=== PATIENT | male | born 1955 | race Caucasian/White ===

== ENCOUNTER 2016-04-22 13:01 | Observation (INO) | payer OTHER ==
[~2016-04-22] VITALS: Ht 172.7 cm; Wt 78.8 kg
--- NOTE | 2016-04-22 15:47 | DIAGNOSTIC IMAGING REPORT ---
PROCEDURE: US ABDOMEN ULTRASOUND-LIMITED INDICATION: RUQ PAIN TECHNIQUE: De Jesus scale and color Doppler sonographic images of the abdomen were obtained without comparison. COMPARISON: Abdominal ultrasound 11/20/2015 FINDINGS: There is a 1.3 mm gallstone at the neck of the gallbladder with probable smaller 7 mm gallstone. No evidence of gallbladder wall thickening (1.8 -2.8 mm). Common duct is normal (4.7 mm). Pancreas is obscured by bowel gas. Portions of the liver and right kidney are seen, and are normal. IMPRESSION: 1. Cholelithiasis (1.3 mm gallstone at the neck of the gallbladder with probable smaller 7 mm gallstone). 2. Otherwise negative ultrasound of the right upper quadrant.
--- NOTE | 2016-04-22 16:18 | ED CLINICAL REPORT ---
Clinical Report - Physicians/Mid Levels [facility] [address] [place] [address] 04/22/2016 13:02 Patient: REYNA RODAS Time Seen: 13:11 Apr 22 2016. Arrived- By ambulance. Historian- patient and EMS personnel. HISTORY OF PRESENT ILLNESS Chief Complaint: ABDOMINAL PAIN. At its maximum, severity described as severe. When seen in the E.D., severity described as severe. It is described as "pain". This started just prior to arrival and is still present. (abdominal pain since last night, with associated nausea and vomiting, with no diarrhea. Pain is constant. Denies any recent illness. No fevers or chills.). Recent medical care: Not recently seen/assessed. REVIEW OF SYSTEMS No constipation, black stools, difficulty with urination, pain with urination or urinary frequency. No fever, headache, sore throat, blurred vision or difficulty breathing. No chills. All systems otherwise negative, except as recorded above. PAST HISTORY Problems: Hepatitis C. Cholelithiasis. Chest Wall Pain. Acute Myocardial Infarction. Hepatitis. Depression. Gastroesophageal Reflux Disease. Abdominal Pain. Gallstone(s). Dental Abscess. Immunizations. Aat, liver disease . Sprain. Hemochromatosis. Syncope [RuleOut]. Additional Surgeries: Appendectomy. Medications: Zofran Oral (Tablet 4 mg) 1 tablet, PRN, NAUSEA. Zofran Oral (Tablet 4 mg) 1 tablet, PRN, NAUSEA. Venlafaxine HCl ER Oral (Tablet Extended Release 24 Hour 150 mg) 1 tablet, DAILY. Metoprolol Tartrate Oral (Tablet 25 mg) 1 tablet, BID. Pantoprazole Sodium Oral (Tablet Delayed Release 40 mg) 1 tablet, daily. Allergies: Penicillins. ADDITIONAL NOTES The nursing notes have been reviewed. PHYSICAL EXAM Vital Signs: 04/22/2016 13:03 BP: 143/75. HR: 90. RR: 22. O2 saturation: 100%. Temp: 97.6 F. Pain level now: 01/20. Appearance: Alert. Eyes: Eyes normal inspection. ENT: Nose normal. Pharynx normal. Neck: Normal inspection. CVS: Normal heart rate and rhythm. Heart sounds normal. Respiratory: No respiratory distress. Breath sounds normal. Abdomen: Nontender. Moderate tenderness in the right upper quadrant, epigastric area and periumbilical area. Bowel sounds normal. No mass. Back: Normal inspection. No CVA tenderness. Skin: Skin warm. Normal skin color. Neuro: Oriented X 3. LABS, X-RAYS, AND EKG Abdominal CT: IMPRESSION: 1. 2 calcified gallstones in the neck of the gallbladder without evidence of inflammatory changes or biliary obstruction 2. 5.4 cm left renal cyst 3. Enlarged prostate 4. Results discussed with Josr Chery, PAC All CT scans at this facility use dose modulation, iterative reconstruction, and/or weight-based dosing when appropriate to reduce radiation dose to as low as reasonably achievable. Electronically Final signed by:Peterson Rothman MD 04/22/2016 4:45:29 PM. Abdominal Sonogram: (IMPRESSION: 1. Cholelithiasis (1.3 mm gallstone at the neck of the gallbladder with probable smaller 7 mm gallstone). 2. Otherwise negative ultrasound of the right upper quadrant. Electronically Final signed by:Jordan Roberto MD 04/22/2016 3:50:25 PM). Laboratory Tests: UA-Culture if indicated: (HOLLY: 04/22/2016 15:45) ( MsgRcvd 04/22/2016 16:24) Final results Test Result Flag Units (Reference) URINE COLOR YELLOW URINE APPEARANCE CLEAR URINE GLUCOSE NEGATIVE (NEGATIVE) URINE BILIRUBIN NEGATIVE (NEGATIVE) URINE KETONE 2+ (NEGATIVE) URINE SPECIFIC GRAVITY >= 1.030 (1.010-1.030) URINE PH 5.5 (5.0-8.0) URINE PROTEIN NEGATIVE (NEGATIVE) URINE UROBILINOGEN 0.2 EU/dL (0.2-1.0) URINE NITRITE NEGATIVE (NEGATIVE) URINE BLOOD TRACE-LYSED (NEGATIVE) URINE LEUK ESTERASE NEGATIVE (NEGATIVE) URINE RBC 0-1 rbc/hpf (0-1) URINE WBC 0-1 wbc/hpf (0-1) URINE EPITHELIAL CELLS 1-3 EPI/hpf (0-5) URINE BACTERIA TRACE (<1+) (NONE SEEN) URINE COMMENT CULT NOT INDICATED URINE CULTURES ARE SET-UP BASED ON THE FOLLOWING CRITERIA:POSITIVE NITRITEPOSITIVE LEUKOCYTE ESTERASEGREATER THAN 10 WHITE BLOOD CELLSMODERATE (2+) OR GREATER BACTERIA CBC w Diff: (HOLLY: 04/22/2016 13:30) ( [facility] [place] [place] 04/22/2016 13:51) Final results Test Result Flag Units (Reference) WHITE BLOOD COUNT 13.8 H K/uL (4.5-11.5) RED BLOOD COUNT 5.58 M/uL (4.50-5.90) HEMOGLOBIN 16.3 gm/dL (13.5-17.5) HEMATOCRIT 49.9 % (41.0-53.0) MEAN CELL VOLUME 90 fL (80-100) MEAN CORPUSCULAR HGB 29 pg (26-34) MEAN CORPUSCULAR HGB CONC 33 g/dL (31-37) RED CELL DISTRIBUTION WIDTH 15.2 H % (11.6-14.8) PLATELET COUNT 211 K/uL (150-400) NEUTROPHIL % 82.0 H % (50-75) LYMPH % 11.9 L % (25-40) MONO % 5.8 % (3-14) EOSINOPHIL % 0 % (0-4) BASOPHIL % 0.3 % (0-2) Lactate, Serum: (HOLLY: 04/22/2016 16:32) ( NdgRcvd 04/22/2016 17:06) Final results Test Result Flag Units (Reference) LACTIC ACID 1.2 mmol/L (0.4-2.0) Lactate, Serum: (HOLLY: 04/22/2016 13:30) ( MsgRcvd 04/22/2016 14:28) Final results Test Result Flag Units (Reference) LACTIC ACID 4.1 H mmol/L (0.4-2.0) CRITICAL RESULTS CALLEDCalled to [facility] 04/22/16 1426Were 2 patient identifiers used? YWas the result read back? Y [id number]: (HOLLY: 04/22/2016 13:30) ( [facility] [place] [place] 04/22/2016 14:30) Final results Test Result Flag Units (Reference) PROCALCITONIN <0.5 ng/mL (0-0.5) PCT Concentration: Interpretation : Risk/option for action PCT <=0.5 ng/mL : Systemic : Low risk forinfection(sepsis): progression to severeis not likely. : systemic infection.Local bacterial : CAUTION-PCT levelsinfection is : below 0.5 ng/mL do notpossible. : exclude an infection,because localizedinfections (withoutsystemic signs) may beassociated with suchlow levels. If PCT ismeasured very earlyafter a bacterialchallenge (usually <6hours), these valuesmay still be low. Inthis case PCT shouldbe re-assessed 6-24hours later. PCT >0.5 and : Systemic infection: Moderate risk for<= 2 ng/mL : (sepsis) is : progression to severepossible, but : systemic infection.other conditions : The patient should beare known to : closely monitoredelevate PCT. : both clinically andby re-assessing PCTwithin 6-24 hours. PCT > 2 ng/mL : Systemic infection: High risk for(sepsis) is likely: progression to severeunless other : systemic infection.causes are known. : PCT >= 10 ng/mL : Important systemic: High likelihood ofinflammatory : severe sepsis orresponse, almost : septic shock.exclusively due to:severe bacterial :sepsis or septic :shock. : CMP: (HOLLY: 04/22/2016 13:30) ( MsgRcvd 04/22/2016 14:09) Final results Test Result Flag Units (Reference) GLUCOSE 161 H mg/dL (70-110) BUN 21 H mg/dL (7-18) CREATININE 1.2 mg/dL (0.6-1.3) Estimated GFR >60 mL/min Estimated GFR- >60 mL/min Note: Persistent reduction over 3 months in eGFR<60 mL/min/1.73 m2 defines CKD. Patients with eGFR values>=60 mL/min/1.73 m2 may also have CKD if evidence ofpersistent proteinuria. Additional information may be foundat www.kidney.org. SODIUM 138 mmol/L (136-145) POTASSIUM 4.3 mmol/L (3.5-5.1) CHLORIDE 104 mmol/L (98-107) CARBON DIOXIDE 18 L mmol/L (21-32) CALCIUM 8.9 mg/dL (8.5-10.1) TOTAL PROTEIN 8.4 H g/dL (6.4-8.2) ALBUMIN 3.8 g/dL (3.3-5.0) BILIRUBIN, TOTAL 0.8 mg/dL (0.0-1.0) ALKALINE PHOSPHATASE 105 U/L (46-116) AST (SGOT) 47 H U/L (15-37) ALT (SGPT) 89 H U/L (12-78) LIPASE 141 U/L (73-393) AMYLASE 44 U/L (25-115) . PROGRESS AND PROCEDURES Course of Care: Patient in the men's pain upon arrival, symptoms improved significantly with a dose of Dilaudid. He has had no nausea or emesis after his medications. He has been stable, resting comfortably here, however concern for acute cholecystitis remains high, as he continues to have pain of the right upper quadrant with positive Douglas sign, with gallstones, with elevated LFTs and leukocytosis, with a left shift. This was discussed with the surgeon, who will admit patient. Patient understands plan. Lactic was elevated in the ER, and he was given 3 L of IV normal saline, which improved his symptoms. Will repeat the lactic, 1.2 improvement . 04/22/2016 15:42 BP: 128/67. HR: 96. RR: 16. O2 saturation: 100%. Patient is stable. Symptoms better. Discussed case with health care provider (DR. Freeman (surgery)). Patient/family counseled. Disposition: Admitted. CLINICAL IMPRESSION Cholecystitis. (Electronically signed by Diane Chery P.A.-C 04/22/2016 19:32)
--- NOTE | 2016-04-22 16:18 | ED NURSING NOTES ---
Clinical Report - Nurses Formerly [facility] [address] [place] [address] 04/22/2016 13:02 Patient: REYNA RODAS TRIAGE Triage time 13:Apr 22 2016. Acuity: LEVEL 3. Chief Complaint: ABDOMINAL PAIN and NAUSEA. SEPSIS SCREEN: Sepsis Screen: positive heart rate greater than 90 and respiratory rate greater than 20. Physician notified. --13:10 Deb Gatica R.N. 13:03 04/22/16. BP: 143/75. HR: 90. RR: 22. O2 saturation: 100%. Temp: 97.6 F. Pain level now: 01/20. --13:10 Deb Gatica R.N. Weight: 79.3 kg. Height/Length: 68 inches Per Patient. BMI: 26.6. --13:02 Deb Gatica R.N. Medications Pantoprazole Sodium Oral (Tablet Delayed Release 40 mg) 1 tablet, daily. --13:06 Deb Gatica R.N. Metoprolol Tartrate Oral (Tablet 25 mg) 1 tablet, BID. --13:07 Deb Gatica R.N. Venlafaxine HCl ER Oral (Tablet Extended Release 24 Hour 150 mg) 1 tablet, DAILY. --13:07 Deb Gatica R.N. Zofran Oral (Tablet 4 mg) 1 tablet, PRN, NAUSEA. Zofran Oral (Tablet 4 mg) 1 tablet, PRN, NAUSEA. --13:08 Deb Gatica R.N. Medication/allergy information source: EMS. --13:10 Deb Gatica R.N. Allergies Penicillins. --13:06 Deb Gatica R.N. History Arrived by EMS. Historian: EMS and patient. This started yesterday. The patient has had nausea and vomiting. Treatment SLIP BOX CHANGER: (ZOFRAN 4 MG). See EMS report. ( GAVE 4 MG ZOFRAN PO PRIOR TO EMS ARRIVAL). PAST MEDICAL HX: Has not received pneumonia vaccine or seasonal influenza immunization. SOCIAL HX: Heavy tobacco smoker (cigarette)- 1 pack per day. History of drug use: marijuana. No alcohol use. No recent travel. No known contact with a sick individual. ABUSE ASSESSMENT: No report of abuse. SELF HARM ASSESSMENT: A self harm assessment was performed. The patient answered "no" to the question "Have you recently felt down, depressed, or hopeless?", "Have you noticed less interest or pleasure in doing things?", "Do you have thoughts of harming or killing yourself?", "Are you here because you tried to hurt yourself?", "Have you ever tried to hurt yourself before today?", "Have you recently had thoughts about harming or killing others?" and "Do you have any dangerous items in your possession?". FALL RISK ASSESSMENT: Fall risk assessment completed. No fall risk identified. NUTRITIONAL RISK ASSESSMENT: The nutritional risk assessment revealed no deficiencies. FUNCTIONAL ASSESSMENT: Functional assessment: no impairments noted. LEARNING NEEDS ASSESSMENT: The learning needs assessment revealed no barriers. SKIN INTEGRITY ASSESSMENT: Skin integrity risk assessment completed. No skin integrity risk identified. --13:10 Deb Gatica R.N. PROBLEMS: Hepatitis C. Cholelithiasis. Depression. Aat, liver disease . Hemochromatosis. --14:23 Deb Gatica R.N. Interventions ID band on patient. --13:10 Deb Gatica R.N. 13:05 04/22/2016 Site #1 started via IV in the left antecubital space with an 20g angiocath, with good blood return; one attempt (STARTED BY EMS). --13:05 Deb Gatica R.N. PHYSICAL ASSESSMENT 13:10 04/22/16. To room via stretcher. GENERAL / NEURO / PSYCH: Alert. Oriented X 4. Appears in pain. HEENT: Mucous membranes are pink. RESPIRATORY: Respirations not labored. ( TACHYPNEA). CVS: Capillary refill less than 2 seconds. GI / : The patient has had nausea. Emesis noted. Abdomen soft. Abdominal tenderness in the right lower quadrant. No guarding or rebound tenderness. No guarding or mass present in the abdominal region. SKIN: Skin is warm and dry. --13:12 Deb Gatica R.N. NURSING PROGRESS NOTES 13:03 04/22/16. The initial plan of care for this patient includes an assessment with efforts to address the presence of pain; impairment of the gastrointestinal system. Patient gowned. Reassurance given. Two patient identifiers checked. Call light placed in reach. Side rails up x 2. Bed placed in lowest position. Brakes of bed on. Patient ready for evaluation. --13:11 Deb Gatica R.N. 13:13 04/22/16. ( Provider at bedside). --13:13 Deb Gatica R.N. 13:30 04/22/2016 Site #2 started via IV in the right wrist with an 18g angiocath, with aseptic technique and good blood return; one attempt. Blood drawn: rainbow set. Labeled in the presence of the patient. Saline lock flushed with 10 mL saline (lactic drawn and iced). --13:39 Deb Gatica R.N. 13:32 04/22/2016 Started bag #1 1000 mL IV Fluids IV NS (Saline); at 1000 mL/hr over 1 hour(s) via site #2. Allergies verified and confirmed 5 rights. IV patency established. IV site checked: no pain, redness, or swelling. IV flushed thoroughly pre- and post-medication administration. --13:42 Deb Gatica R.N. 13:33 04/22/2016 Dilaudid (HYDROmorphone HCl PF) IVP 0.5 mg given over 1 minute(s) via site #2. Allergies verified, confirmed 5 rights and sedative warning given to the patient and patient's family. IV patency established. IV site checked: no pain, redness, or swelling. IV flushed thoroughly pre- and post-medication administration. IVP given by RN. --13:42 Deb Gatica R.N. 13:34 04/22/2016 PHENERGAN (Promethazine HCl) IVP 12.5 mg given over 5 minute(s) via site #2. Allergies verified and confirmed 5 rights. IV patency established. IV site checked: no pain, redness, or swelling. IV flushed thoroughly pre- and post-medication administration. IVP given by RN. --13:43 Deb Gatica R.N. 13:43 04/22/16. Oxygen administered at 2 liters (applied). ( Patient hypoventilating following IV dilaudid. O2 sats dropped to 76.). --13:43 Deb Gatica R.NAlcides 13:46 04/22/16. BP: 116/62. HR: 74. RR: 16. O2 saturation: 100%. Pain level now 05/23. --13:46 eDb Gatica R.N. 13:46 04/22/16. Reassessment after oxygen administered and medication administered. He is calm. Overall patient status is improved. --13:46 Deb Gatica R.N. 14:27 04/22/16. Critical value relayed to ED by Lio. Critical value received by Radha. Lactate level: 4.1. Critical value read back. PA notifed of critical value. --14:27 Deb Gatica R.N. ( Orders already in place for Sepsis protocol..). --14:28 Deb Gatica R.N. 14:31 04/22/2016 IV Fluids IV NS Discontinued: bag #1 completed. Total amount infused: 1000 mL. IV patency established. IV site checked: no pain, redness, or swelling. IV flushed thoroughly. --14:31 Deb Gatica R.N. <<STRICKEN ENTRY-- 14:32 04/22/2016 Started bag #1 1000 mL IV Fluids IV NS (Saline); at 1000 mL/hr over 1 hour(s) via site #2. Allergies verified and confirmed 5 rights. IV patency established. IV site checked: no pain, redness, or swelling. IV flushed thoroughly pre- and post-medication administration. --14:32 Deb Gatica R.NAlcides --END STRIKE>> Correction. --15:05 Deb Gatica R.NAlcides 14:32 04/22/16. BP: 103/47. HR: 93. RR: 16. O2 saturation: 100%. Pain level now 05/23. --14:32 Deb Gatica R.N. <<STRICKEN ENTRY-- ( Ultrasound completed). --15:00 Deb Gatica R.N. --END STRIKE>> Correction --15:01 Deb Gatica R.NAlcides 14:32 04/22/2016 Started bag #1 1000 IV Fluids IV NS (Saline); at 2000 mL/hr over 1 hour(s) via site #2. Allergies verified and confirmed 5 rights. IV patency established. IV site checked: no pain, redness, or swelling. IV flushed thoroughly pre- and post-medication administration. --15:05 Deb Gatica R.NAlcides 14:32 04/22/16. Reassessment after oxygen and fluids administered and medication administered. He has had no adverse reaction. Overall patient status is improved. --14:32 Deb Gatica R.N. 14:33 04/22/16. ( geotechnical operating engineer in room). --14:33 Deb Gatica R.NAlcides 15:04/22/16. ( Ultrasound completed). --15:01 Deb Gatica R.NAlcides 15:04/22/2016 Started bag #1 1000 mL IV Fluids IV NS (Saline); at 2000 mL/hr over 30 minute(s) via site #2. Allergies verified and confirmed 5 rights. IV patency established. IV site checked: no pain, redness, or swelling. IV flushed thoroughly pre- and post-medication administration. --15:06 Deb Gatica R.NAlcides 15:04/22/2016 IV Fluids IV NS Discontinued: bag #2 completed. Total amount infused: 1000 mL. --15:05 Deb Gatica R.NAlcides 15:42 04/22/16. BP: 128/67. HR: 96. RR: 16. O2 saturation: 100%. Pain level now 04/22. --15:42 Deb aGtica R.N. 15:42 04/22/16. The patient reports no complaints and he is calm and resting quietly. Overall patient status is the same- he states feels the same. --15:42 Deb Gatica R.N. 15:35 04/22/2016 IV Fluids IV NS Discontinued: bag #3 completed. Total amount infused: 1000 mL. IV patency established. IV site checked: no pain, redness, or swelling. IV flushed thoroughly. --15:42 Deb Gatica R.N. 15:45 04/22/16. Patient ID band checked for patient name and birthdate: patient confirmed. Instructions provided to collect clean catch urine and patient verbalized understanding. Clean catch urine collected with return of lydia-colored clear urine; sample sent to lab for urinalysis. Specimen labeled in the presence of the patient. --15:51 Deb Gatica R.N. 16:14 04/22/16. [facility]. --16:14 Deb Gatica R.N. 17:23 04/22/2016 Started 1 gm of CEFOTETAN IVPB in bag #1 50 mL; at 180 mL/hr over 30 minute(s) via site #2 via IV pump. Allergies verified and confirmed 5 rights. IV patency established. IV site checked: no pain, redness, or swelling. IV flushed thoroughly pre- and post-medication administration. --17:23 Deb Gatica R.N. 17:27 04/22/16. BP: 135/78. HR: 90. RR: 16. O2 saturation: 100%. Pain level now 05/23. --17:27 Deb Gatica R.N. 17:27 04/22/16. The patient is calm and resting quietly. ( WAITING FOR ADMIT BED). --17:27 Deb Gatica R.N. 17:41 04/22/2016 CEFOTETAN IVPB Discontinued: completed. Total amount infused: 50 mL. IV patency established. IV site checked: no pain, redness, or swelling. IV flushed thoroughly. --17:41 Deb Gatica R.N. 18:05 04/22/2016 PHENERGAN (Promethazine HCl) IVP 12.5 mg given over 5 minute(s) via site #2. Allergies verified and confirmed 5 rights. IV patency established. IV site checked: no pain, redness, or swelling. IV flushed thoroughly pre- and post-medication administration. IVP given by RN. --18:11 Deb Gatica R.N. Intake & Output 15:43 04/22/16. IV fluids: 3000 mL. --15:43 Deb Gatica R.N. Urine: 225 mL. --15:51 Deb Gatica R.N. DISPOSITION / DISCHARGE 18:14 04/22/16. Report was given to a nurse via a phone call. Report included patient's care, treatment, medications, reviewed medication reconcilliation, and condition (including any recent changes or anticipated changes). All questions were answered. Report was acknowledged. (Beth). --18:14 Deb Gatica R.N. 18:18 04/22/2016 Site #[address] upon admission; patent. --18:18 Deb Gatica R.N. 18:18 04/22/2016 Site #[address] upon admission; patent. --18:18 Deb Gatica R.N. 18:19 04/22/16. Condition at departure: improved and stable. The goals identified in the patient's plan of care were met. Disposition: observation in Acute Care. Transported via stretcher. --18:19 Deb Gatica R.N. 17:27 04/22/16. BP: 135/78. HR: 90. RR: 16. O2 saturation: 100%. Pain level now 05/23. --18:19 Deb Gatica R.N. Departure time: 18:19 Apr 22 2016. --18:19 Deb Gatica R.N. Locked/Released at 04/22/2016 23:07 by Deb Gatica R.N.
--- NOTE | 2016-04-22 16:18 | ED ORDER SUMMARY ---
..... Patient: REYNA RODAS OrderSheet [facility] VisitID: [id number] [place] [address] 61y, M Registration Date/Time: 04/22/2016 ORDER SHEET Weight: 79.3 kg Allergies: Penicillins GENERAL ORDERS: CBC w Diff Urgent (13:16 04/22/2016 EKoroleva P.A.-C) (Ack 13:24 NHouse ER Tech1) (13:47 EInderbitzen R.N.) CMP Urgent (13:16 04/22/2016 EKoroleva P.A.-C) (Ack 13:24 NHouse ER Tech1) (13:47 EInderbitzen R.N.) UA-Culture if indicated Urgent (13:16 04/22/2016 EKoroleva P.A.-C) (Ack 13:24 NHouse ER Tech1) (16:56 EInderbitzen R.N.) (16:57 NHouse ER Tech1) Lipase Urgent (13:16 04/22/2016 EKoroleva P.A.-C) (Ack 13:24 NHouse ER Tech1) (13:47 EInderbitzen R.N.) Amylase Urgent (13:16 04/22/2016 EKoroleva P.A.-C) (Ack 13:24 NHouse ER Tech1) (13:47 EInderbitzen R.N.) PCT (Procalcitonin) Urgent (13:16 04/22/2016 EKoroleva P.A.-C) (Ack 13:24 NHouse ER Tech1) (13:48 EInderbitzen R.N.) Lactate, Serum Urgent (13:16 04/22/2016 EKoroleva P.A.-C) (Ack 13:24 NHouse ER Tech1) (13:48 EInderbitzen R.N.) US Abdomen Limited (No) Urgent (13:52 04/22/2016 EKoroleva P.A.-C) (Ack 13:54 NHouse ER Tech1) (14:54 NHouse ER Tech1) CT Abd/Pel w Cont (No) (see lab) Urgent (15:56 04/22/2016 EKoroleva P.A.-C) (Ack 16:00 LNations ER Tech1) (16:25 LNations ER Tech1) Lactate, Serum (new) Urgent (16:17 04/22/2016 EKoroleva P.A.-C) (Ack 16:21 LNations ER Tech1) (16:33 NHouse ER Tech1) MEDICATION ORDERS: Phenergan IV 12.5 mg (HIGH ALERT MEDICATION, NOW) (13:16 04/22/2016 EKoroleva P.A.-C) (13:43 EInderbitzen R.N.) Phenergan IV 12.5 mg (HIGH ALERT MEDICATION, NOW) (17:56 04/22/2016 EKoroleva P.A.-C) (18:11 EInderbitzen R.N.) IV FLUIDS: IV NS : initial bolus 1000 mL (1000 mL/hr), then 1000 mL/hr for X1 (NOW); Daniel (13:15 04/22/2016 EKoroleva P.A.-C) (13:42 EInderbitzen R.N.) Dilaudid IV 0.5 mg (may repeat x 1 in 15 mins) (13:15 04/22/2016 EKoroleva P.A.-C) (13:42 EInderbitzen R.N.) IV NS : initial bolus 2,000mL, then 1000 mL/hr (NOW); Daniel (3L total) (14:33 04/22/2016 EKoroleva P.A.-C) (Ack 14:58 EInderbitzen R.N.) (15:06 EInderbitzen R.N.) Cefotetan IV 1 gm (NOW) (16:45 04/22/2016 EKoroleva P.A.-C) (17:23 EInderbitzen R.N.) ORDER SHEET NOTES: [Electronically signed by Diane Chery-Puneet (19:32 04/22/2016)] [Electronically signed by Deb Gatica R.N. (23:07 04/22/2016)] [Electronically locked/signed by Deb Gatica R.N. (23:07 04/22/2016)]
--- NOTE | 2016-04-22 16:18 | ED ORDER SUMMARY ---
..... Patient: REYNA RODAS OrderSheet [facility] VisitID: [id number] [place] [address] 61y, M Registration Date/Time: 04/22/2016 ORDER SHEET Weight: 79.3 kg Allergies: Penicillins GENERAL ORDERS: CBC w Diff Urgent (13:16 04/22/2016 EKoroleva P.A.-C) (Ack 13:24 NHouse ER Tech1) (13:47 EInderbitzen R.N.) CMP Urgent (13:16 04/22/2016 EKoroleva P.A.-C) (Ack 13:24 NHouse ER Tech1) (13:47 EInderbitzen R.N.) UA-Culture if indicated Urgent (13:16 04/22/2016 EKoroleva P.A.-C) (Ack 13:24 NHouse ER Tech1) (16:56 EInderbitzen R.N.) (16:57 NHouse ER Tech1) Lipase Urgent (13:16 04/22/2016 EKoroleva P.A.-C) (Ack 13:24 NHouse ER Tech1) (13:47 EInderbitzen R.N.) Amylase Urgent (13:16 04/22/2016 EKoroleva P.A.-C) (Ack 13:24 NHouse ER Tech1) (13:47 EInderbitzen R.N.) PCT (Procalcitonin) Urgent (13:16 04/22/2016 EKoroleva P.A.-C) (Ack 13:24 NHouse ER Tech1) (13:48 EInderbitzen R.N.) Lactate, Serum Urgent (13:16 04/22/2016 EKoroleva P.A.-C) (Ack 13:24 NHouse ER Tech1) (13:48 EInderbitzen R.N.) US Abdomen Limited (No) Urgent (13:52 04/22/2016 EKoroleva P.A.-C) (Ack 13:54 NHouse ER Tech1) (14:54 NHouse ER Tech1) CT Abd/Pel w Cont (No) (see lab) Urgent (15:56 04/22/2016 EKoroleva P.A.-C) (Ack 16:00 LNations ER Tech1) (16:25 LNations ER Tech1) Lactate, Serum (new) Urgent (16:17 04/22/2016 EKoroleva P.A.-C) (Ack 16:21 LNations ER Tech1) (16:33 NHouse ER Tech1) MEDICATION ORDERS: Phenergan IV 12.5 mg (HIGH ALERT MEDICATION, NOW) (13:16 04/22/2016 EKoroleva P.A.-C) (13:43 EInderbitzen R.N.) Phenergan IV 12.5 mg (HIGH ALERT MEDICATION, NOW) (17:56 04/22/2016 EKoroleva P.A.-C) (18:11 EInderbitzen R.N.) IV FLUIDS: IV NS : initial bolus 1000 mL (1000 mL/hr), then 1000 mL/hr for X1 (NOW); Daniel (13:15 04/22/2016 EKoroleva P.A.-C) (13:42 EInderbitzen R.N.) Dilaudid IV 0.5 mg (may repeat x 1 in 15 mins) (13:15 04/22/2016 EKoroleva P.A.-C) (13:42 EInderbitzen R.N.) IV NS : initial bolus 2,000mL, then 1000 mL/hr (NOW); Daniel (3L total) (14:33 04/22/2016 EKoroleva P.A.-C) (Ack 14:58 EInderbitzen R.N.) (15:06 EInderbitzen R.N.) Cefotetan IV 1 gm (NOW) (16:45 04/22/2016 EKoroleva P.A.-C) (17:23 EInderbitzen R.N.) ORDER SHEET NOTES: [Electronically signed by Diane Chery-Puneet (19:32 04/22/2016)] [Electronically signed by Deb Gatica R.N. (23:07 04/22/2016)] [Electronically locked/signed by Deb Gatica R.N. (23:07 04/22/2016)]
--- NOTE | 2016-04-22 16:45 | DIAGNOSTIC IMAGING REPORT ---
PROCEDURE: CT ABD/PELVIS WITH CONTRAST CLINICAL INDICATION: ELEVATED LFTS TECHNIQUE: 125 ml of Isovue 300 were injected intravenously and axial images were obtained of the entire abdomen and pelvis with sagittal and coronal reformations. COMPARISON: Abdominal ultrasound 04/22/2016 FINDINGS: ABDOMEN: Two calcified gallstones in the neck of the gallbladder, largest 8 mm, without evidence of inflammatory changes or biliary obstruction. Lung bases are clear. Heart size is normal. Liver, pancreas, spleen (splenule), adrenal glands and right kidney are normal. 5.4 cm left renal lower pole cyst. Mild atherosclerosis of the aorta. Nonspecific bowel gas pattern. PELVIS: Appendix not visualized. Enlarged prostate (5 cm). No pelvic mass, inflammatory changes or free fluid. Mild degenerative changes of the spine. IMPRESSION: 1. 2 calcified gallstones in the neck of the gallbladder without evidence of inflammatory changes or biliary obstruction 2. 5.4 cm left renal cyst 3. Enlarged prostate 4. Results discussed with ZOEY Hernandez All CT scans at this facility use dose modulation, iterative reconstruction, and/or weight-based dosing when appropriate to reduce radiation dose to as low as reasonably achievable.
[2016-04-22 18:45] VITALS: BP 148/83
--- NOTE | 2016-04-22 23:07 | ED DISCHARGE INSTRUCTIONS ---
Patient: REYNA RODAS General Instructions [facility] VisitID: [id number] [address] [place] [address] 61y, M Registration Date/Time: 04/22/2016 Cholecystitis. (Electronically signed by Diane Chery P.A.-C 04/22/2016 19:32)
--- NOTE | 2016-04-22 23:07 | ED MED RECONCILIATION SUMMARY ---
Patient: REYNA RODAS Medication Reconciliation Report [facility] VisitID: [id number] [address] [place] [address] 61y, M Registration Date/Time: 04/22/2016 Weight: 79.3 kg Height/Length: 68 in. BMI: 26.6 ALLERGIES: Penicillins The patient's Home Medications are listed below: THE FOLLOWING MEDICATIONS NEED TO BE RECONCILED: Metoprolol Tartrate Oral (25 mg) 1 tablet, BID Pantoprazole Sodium Oral (40 mg) 1 tablet, daily Venlafaxine HCl ER Oral (150 mg) 1 tablet, DAILY Zofran Oral (4 mg) 1 tablet, PRN, NAUSEA Zofran Oral (4 mg) 1 tablet, PRN, NAUSEA The source(s) of the original Home Medication information: EMS The following Medications were given to the patient in the Emergency Department: IV NS IV Fluids bolus 0, then 1000 mL/hr, administered: 04/22/2016 1:32:00 PM Dilaudid [IVP] IVP 0.5 mg, administered: 04/22/2016 1:33:00 PM PHENERGAN [IVP] IVP 12.5 mg, administered: 04/22/2016 1:34:00 PM IV NS IV Fluids bolus 0, then 2000 mL/hr, administered: 04/22/2016 2:32:00 PM IV NS IV Fluids bolus 0, then 2000 mL/hr, administered: 04/22/2016 3:05:00 PM CEFOTETAN [IVPB] IVPB bolus 0, then 1 gm 180 mL/hr, administered: 04/22/2016 5:23:00 PM PHENERGAN [IVP] IVP 12.5 mg, administered: 04/22/2016 6:05:00 PM The following Medications were prescribed to the patient: None.
--- NOTE | 2016-04-22 23:07 | ED MED RECONCILIATION SUMMARY ---
Patient: REYNA RODAS Medication Reconciliation Report [facility] VisitID: [id number] [address] [place] [address] 61y, M Registration Date/Time: 04/22/2016 Weight: 79.3 kg Height/Length: 68 in. BMI: 26.6 ALLERGIES: Penicillins The patient's Home Medications are listed below: THE FOLLOWING MEDICATIONS NEED TO BE RECONCILED: Metoprolol Tartrate Oral (25 mg) 1 tablet, BID Pantoprazole Sodium Oral (40 mg) 1 tablet, daily Venlafaxine HCl ER Oral (150 mg) 1 tablet, DAILY Zofran Oral (4 mg) 1 tablet, PRN, NAUSEA Zofran Oral (4 mg) 1 tablet, PRN, NAUSEA The source(s) of the original Home Medication information: EMS The following Medications were given to the patient in the Emergency Department: IV NS IV Fluids bolus 0, then 1000 mL/hr, administered: 04/22/2016 1:32:00 PM Dilaudid [IVP] IVP 0.5 mg, administered: 04/22/2016 1:33:00 PM PHENERGAN [IVP] IVP 12.5 mg, administered: 04/22/2016 1:34:00 PM IV NS IV Fluids bolus 0, then 2000 mL/hr, administered: 04/22/2016 2:32:00 PM IV NS IV Fluids bolus 0, then 2000 mL/hr, administered: 04/22/2016 3:05:00 PM CEFOTETAN [IVPB] IVPB bolus 0, then 1 gm 180 mL/hr, administered: 04/22/2016 5:23:00 PM PHENERGAN [IVP] IVP 12.5 mg, administered: 04/22/2016 6:05:00 PM The following Medications were prescribed to the patient: None.
--- NOTE | 2016-04-22 23:07 | ED MAR SUMMARY ---
..... Medication Administration Record [facility] [address] [place] [address] Patient: REYNA RODAS Visit ID: [id number] 61y, M Weight: 79.3 kg Height/Length: 68 in BMI: 26.6 ALLERGIES: Penicillins Start 13:32 04/22/2016 Deb Gatica R.N., Stop 14:31 04/22/2016 Deb Gatica R.N. Medication Administered: IV NS (SALINE), Dose: IV Fluids over 1 hour(s), Rate: 1000 mL/hr, Dispensed: 1000 mL bag, Site: #2 right wrist. Medication Ordered: IV NS : initial bolus 1000 mL (1000 mL/hr), then 1000 mL/hr for X1 (NOW); Daniel. Given 13:33 04/22/2016 Deb Gatica R.N. Medication Administered: DILAUDID [IVP] (HYDROMORPHONE HCL PF), Dose: 0.5 mg IVP over 1 minute(s), Site: #2 right wrist. Medication Ordered: Dilaudid IV 0.5 mg (may repeat x 1 in 15 mins). Given 13:34 04/22/2016 Deb Gatica R.N. Medication Administered: PHENERGAN [IVP] (PROMETHAZINE HCL), Dose: 12.5 mg IVP over 5 minute(s), Site: #2 right wrist. Medication Ordered: Phenergan IV 12.5 mg (HIGH ALERT MEDICATION, NOW). Start 14:32 04/22/2016 Deb Gatica R.N., Stop 15:04/22/2016 Deb Gatica R.N. Medication Administered: IV NS (SALINE), Dose: IV Fluids over 1 hour(s), Rate: 2000 mL/hr, Dispensed: 1000 mL bag, Site: #2 right wrist. Medication Ordered: IV NS : initial bolus 1000 mL (1000 mL/hr), then 1000 mL/hr for X1 (NOW); Daniel. Start 15:04/22/2016 Deb Gatica R.N., Stop 15:35 04/22/2016 Deb Gatica R.N. Medication Administered: IV NS (SALINE), Dose: IV Fluids over 30 minute(s), Rate: 2000 mL/hr, Dispensed: 1000 mL bag, Site: #2 right wrist. Medication Ordered: IV NS : initial bolus 2,000mL, then 1000 mL/hr (NOW); Daniel (3L total). Start 17:23 04/22/2016 Deb Gatica R.N., Stop 17:41 04/22/2016 Deb Gatica R.N. Medication Administered: CEFOTETAN [IVPB], Dose: 1 gm IVPB over 30 minute(s), Rate: 180 mL/hr, Dispensed: 50 mL bag, Site: #2 right wrist. Medication Ordered: Cefotetan IV 1 gm (NOW). Given 18:05 04/22/2016 Deb Gatica R.N. Medication Administered: PHENERGAN [IVP] (PROMETHAZINE HCL), Dose: 12.5 mg IVP over 5 minute(s), Site: #2 right wrist. Medication Ordered: Phenergan IV 12.5 mg (HIGH ALERT MEDICATION, NOW).
--- NOTE | 2016-04-22 23:07 | ED DISCHARGE INSTRUCTIONS ---
Patient: REYNA RODAS General Instructions [facility] VisitID: [id number] [address] [place] [address] 61y, M Registration Date/Time: 04/22/2016 Cholecystitis. (Electronically signed by Diane Chery P.A.-C 04/22/2016 19:32)
--- NOTE | 2016-04-22 23:07 | ED MAR SUMMARY ---
..... Medication Administration Record [facility] [address] [place] [address] Patient: REYNA RODAS Visit ID: [id number] 61y, M Weight: 79.3 kg Height/Length: 68 in BMI: 26.6 ALLERGIES: Penicillins Start 13:32 04/22/2016 Deb Gatica R.N., Stop 14:31 04/22/2016 Deb Gatica R.N. Medication Administered: IV NS (SALINE), Dose: IV Fluids over 1 hour(s), Rate: 1000 mL/hr, Dispensed: 1000 mL bag, Site: #2 right wrist. Medication Ordered: IV NS : initial bolus 1000 mL (1000 mL/hr), then 1000 mL/hr for X1 (NOW); Daniel. Given 13:33 04/22/2016 Deb Gatica R.N. Medication Administered: DILAUDID [IVP] (HYDROMORPHONE HCL PF), Dose: 0.5 mg IVP over 1 minute(s), Site: #2 right wrist. Medication Ordered: Dilaudid IV 0.5 mg (may repeat x 1 in 15 mins). Given 13:34 04/22/2016 Deb Gatica R.N. Medication Administered: PHENERGAN [IVP] (PROMETHAZINE HCL), Dose: 12.5 mg IVP over 5 minute(s), Site: #2 right wrist. Medication Ordered: Phenergan IV 12.5 mg (HIGH ALERT MEDICATION, NOW). Start 14:32 04/22/2016 Deb Gatica R.N., Stop 15:04/22/2016 Deb Gatica R.N. Medication Administered: IV NS (SALINE), Dose: IV Fluids over 1 hour(s), Rate: 2000 mL/hr, Dispensed: 1000 mL bag, Site: #2 right wrist. Medication Ordered: IV NS : initial bolus 1000 mL (1000 mL/hr), then 1000 mL/hr for X1 (NOW); Daniel. Start 15:04/22/2016 Deb Gatica R.N., Stop 15:35 04/22/2016 Deb Gatica R.N. Medication Administered: IV NS (SALINE), Dose: IV Fluids over 30 minute(s), Rate: 2000 mL/hr, Dispensed: 1000 mL bag, Site: #2 right wrist. Medication Ordered: IV NS : initial bolus 2,000mL, then 1000 mL/hr (NOW); Daniel (3L total). Start 17:23 04/22/2016 Deb Gatica R.N., Stop 17:41 04/22/2016 Deb Gatica R.N. Medication Administered: CEFOTETAN [IVPB], Dose: 1 gm IVPB over 30 minute(s), Rate: 180 mL/hr, Dispensed: 50 mL bag, Site: #2 right wrist. Medication Ordered: Cefotetan IV 1 gm (NOW). Given 18:05 04/22/2016 Deb Gatica R.N. Medication Administered: PHENERGAN [IVP] (PROMETHAZINE HCL), Dose: 12.5 mg IVP over 5 minute(s), Site: #2 right wrist. Medication Ordered: Phenergan IV 12.5 mg (HIGH ALERT MEDICATION, NOW).
[2016-04-22 23:18] VITALS: BP 135/77
[2016-04-23] VITALS (11 sets, daily range): BP systolic 114–174; BP diastolic 58–89
[2016-04-23] MEDS ORDERED: ZOFRAN ODT4 MG PO (09:53)
[2016-04-23] MEDS ORDERED: VENLAFAXINE H37.5 M1 PO (10:01)
[2016-04-23] MEDS ORDERED: LOPRESSOR25 MG PO (10:04)
[2016-04-23] MEDS ORDERED: PANTOPRAZOLE SO40 MG PO (10:05)
--- NOTE | 2016-04-23 17:36 | DIAGNOSTIC IMAGING REPORT ---
PROCEDURE: XR INTRAOPERATIVE LAP BARBARA INDICATION: IOC TECHNIQUE: Intraoperative fluoroscopy provided for Dr. Freeman performing an intraoperative cholangiogram following cholecystectomy. Total fluoroscopy time 10 seconds Cumulative dose 2.9 mGy. COMPARISON: Abdominal ultrasound 04/22/2016 FINDINGS: Single intraoperative fluoroscopic spot image of the right upper quadrant of the abdomen demonstrates cannulation of the cystic duct stump and opacification of the intrahepatic and extrahepatic biliary tree. There are no filling defects. There is normal passage of contrast into the duodenum. IMPRESSION: 1. Negative intraoperative cholangiogram.
--- NOTE | 2016-04-23 18:12 | CONSULTATION REPORT ---
DATE OF CONSULTATION: 04/23/2016 CHIEF COMPLAINT: 1. Right upper quadrant abdominal pain HISTORY OF PRESENT ILLNESS: The patient is a 61-year-old man who presented to the emergency room with abdominal pain starting acutely the day before. He has had 1 episode of this about a year ago and was found to have gallstones. He was supposed to get a laparoscopic cholecystectomy but failed to go through with the surgery. The patient additionally has a history of chronic hemochromatosis and alpha-1 antitrypsin deficiency. He does not believe he has cirrhosis or advanced liver disease or other advanced manifestations. He is nondiabetic. MEDICAL/SURGICAL HISTORY: Past medical history additionally includes hepatitis C , sleep apnea and chronic obstructive pulmonary disease. Past surgical history: Appendectomy. MEDICATIONS: 1. Pantoprazole 40 mg daily. 2. Metoprolol 25 mg b.i.d. 3. Venlafaxine ER 150 daily. ALLERGIES: 1. PENICILLINS. SOCIAL HISTORY: The patient is . He smokes about 1 pack per day, does not take alcohol, having quit about 24 years ago at which time he was alcoholic. 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 FAMILY HISTORY: Alpha-1 antitrypsin deficiency in 1 daughter, 2 daughters have immune problems and one has Budd-Chiari syndrome. REVIEW OF SYSTEMS: A multipoint review of systems was obtained. The patient reports he has had depression. He denies active problems of the sinuses, ear, nose, and throat. He reports no cough, hemoptysis, or hematemesis. He reports no vomiting. He has not had palpitations or chest pain. He has never had ascites or jaundice. PHYSICAL EXAMINATION: GENERAL: The patient was alert and cooperative. His neurologic status was normal. He appeared to be oriented and provided appropriate history. His cranial nerves work normally, he moves his extremities symmetrically. HEENT: His ears and nose demonstrate no gross external lesions. His eyes are equal. He is not icteric. NECK: Without palpable masses and there is no thyromegaly. CHEST: Clear to auscultation. HEART: Regular, without murmur or gallop. ABDOMEN: Reveals localized tenderness in the right subcostal region. There is no caput medusae. There is no palpable hepatosplenomegaly or ascites. Bowel sounds are active. EXTREMITIES: Appear symmetric. He moves without much restriction. LAB/IMAGING: Urine was negative. Lactic acid level was 1.2. White count 13.8, hemoglobin and hematocrit 16 and 49. His glucose was slightly elevated at 161, BUN of 21. His electrolytes were normal except for a carbon dioxide of 18. SGOT and SGPT were mildly elevated at 47 and 89, lipase and amylase were normal. Radiology: There were 2 calcified gallstones noted in the neck of the gallbladder. There was a left renal cyst and an enlarged prostate. IMPRESSION: 1. Cholelithiasis with acute and chronic cholecystitis. PLAN: I recommend the patient undergo a laparoscopic cholecystectomy and cholangiography. At the same time, I suggested we do a liver biopsy due to the patient's history of 3 different potential causes of liver problems. The patient is interested in proceeding with this type of surgery. I also reported the risks involved with surgery including infection, bleeding, scars, pain, damage to local structures, possible common duct stones and others. He would like to proceed as described.
--- NOTE | 2016-04-23 18:18 | OPERATIVE REPORT ---
DATE OF SURGERY: 04/23/2016 SURGEON: Rafael Freeman MD PRODUCE WEIGHER: Corbin Hernandez III, MD PREOPERATIVE DIAGNOSES: 1. Cholelithiasis with acute and chronic cholecystitis. 2. History of chronic liver disease from hemochromatosis, alpha-1 antitrypsin deficiency and hepatitis C. POSTOPERATIVE DIAGNOSES: 1. cholelithiasis with acute and chronic cholecystitis 2. hemochromatosis, alpha 1 antitrypsin deficiency, hepatitis C PROCEDURE PERFORMED: 1. Laparoscopic cholecystectomy and cholangiography 2. Laparoscopic guided needle biopsy of liver. ANESTHESIA: General. INDICATIONS: The patient is a 61-year-old man presenting with epigastric and right upper quadrant abdominal pain and cholelithiasis. He has had a previous attack like this. He had leukocytosis. The patient also had a history of chronic liver disease without known ascites or advanced cirrhosis. SURGICAL TECHNIQUE: The patient was taken to the operating room, where a general anesthetic was administered and the patient prepped and draped in the usual sterile fashion. A Lancaster catheter, orogastric tube, IV antibiotics, and sequential compression devices were in place. A local anesthetic of 0.5% Marcaine with epinephrine was used at each incision site. An infraumbilical incision was made and a Veress needle used to insufflate the abdominal cavity. A 10 mm trocar was passed and visualization was obtained. The liver had rounded liver edges, but no obvious micronodular pattern. This was consistent with some type of chronic liver disease, but did not clearly represented advanced cirrhosis. There was also no sign of venous dilation or ascites. The gallbladder was elevated and there were extensive anterior adhesions to the omentum, which were taken down with blunt and electrocautery dissection. The neck of the gallbladder was circumferentially dissected and a clip placed. A fluoroscopic cholangiogram was carried out which demonstrated free flow into the duodenum, retrograde filling and no persistent filling defects. The cystic duct and artery were both clipped and divided. The gallbladder stripped from the gallbladder fossa using electrocautery. It was pulled to the upper midline trocar site where it was withdrawn from the abdomen and submitted for histopathology. Irrigation and suction were used and hemostasis was found be complete. A spring-loaded core needle was inserted through the cholangiogram insertion site and used to take a single core from the right lobe of the liver. Pressure was held with a piece of omentum over this until hemostasis was complete. Additional Marcaine was instilled, gas was evacuated, and the midline trocar sites closed at the skin with interrupted subcuticular 4-0 Vicryl suture. Steri-Strips and dressings were applied and the patient left in good condition. No intraoperative complications were encountered.
[2016-04-24 03:15] VITALS: BP 150/80
[2016-04-24 06:43] VITALS: BP 149/82
[2016-04-24 10:06] VITALS: BP 145/81
[2016-04-24 14:19] VITALS: BP 136/82
[2016-04-24] MEDS ORDERED: OXAYDO5 MG PO (16:13)
--- NOTE | 2016-04-24 16:15 | Provider's Discharge Care Plan ---
Problem, Goal, Plan Problem List 1. Acute cholecystitis 2. Chronic liver disease
--- NOTE | 2016-04-24 16:15 | Provider's Discharge Care Plan ---
Problem, Goal, Plan Problem List 1. Acute cholecystitis 2. Chronic liver disease
== END 2016-04-24 16:48 | disposition home or self-care (01) ==
LOC: ED SRH 13:01 → SDC SRH 16:24 → TRANS SRH 17:27 → SDC SRH 17:52 → TRANS SRH 17:53 → ACUTE2 SRH 17:53 → CC SRH 04-23 17:13
PROVIDERS: ADMIT Surgery
PROC: 0FT44ZZ Resection of Gallbladder, Percutaneous Endoscopic Approach (ICD-10-PCS; principal; 2016-04-23 16:00)
PROC: BF101ZZ Fluoroscopy of Bile Ducts using Low Osmolar Contrast (ICD-10-PCS; principal; 2016-04-23 16:00)
PROC: 0FB13ZX Excision of Right Lobe Liver, Percutaneous Approach, Diagnostic (ICD-10-PCS; principal; 2016-04-23 16:00)
DX: K80.12 Calculus of gallbladder with acute and chronic cholecystitis without obstruction (principal); K74.69 Other cirrhosis of liver; E88.01 Alpha-1-antitrypsin deficiency; E83.119 Hemochromatosis, unspecified; B18.2 Chronic viral hepatitis C; K21.9 Gastro-esophageal reflux disease without esophagitis; Z72.0 Tobacco use
CPT/HCPCS: 29229; 29250; 29259; 29264; 50002; 60001; 70002; 80102; 80212; 80248; 82790; 82794; 82807; 83339; 83348; 83421; 83580; 83587; 83920; 83937; 83982; 84038; 85420; 85447; 90004; 90100; 92031; 92235; 92530; 93004; 95059

== ENCOUNTER 2016-05-04 00:29 | Emergency (ER) | payer OTHER ==
[~2016-05-04 00:29] MED LIST: LOPRESSOR25 MG PO; OXAYDO5 MG PO; PANTOPRAZOLE SO40 MG PO; VENLAFAXINE H37.5 M1 PO; ZOFRAN ODT4 MG PO
--- NOTE | 2016-05-04 03:41 | ED ORDER SUMMARY ---
..... Patient: REYNA RODAS OrderSheet [facility] VisitID: [id number] [place] [address] 61y, M Registration Date/Time: 05/04/2016 ORDER SHEET Weight: 79.3 kg (stated) Allergies: Penicillins GENERAL ORDERS: CBC w Diff Urgent (00:54 05/04/2016 Bryant Vásquez) (Ack 0:58 CHagerty ER Banquet Line Cook) (1:33 CHagerty ER Banquet Line Cook) CMP Urgent (00:54 05/04/2016 Bryant Vásquez) (Ack 0:58 CHagerty ER Banquet Line Cook) (1:33 CHagerty ER Banquet Line Cook) Amylase Urgent (00:54 05/04/2016 Bryant Vásquez) (Ack 0:58 CHagerty ER Banquet Line Cook) (1:33 CHagerty ER Banquet Line Cook) Lipase Urgent (00:54 05/04/2016 Bryant Vásquez) (Ack 0:58 CHagerty ER Banquet Line Cook) (1:33 CHagerty ER Banquet Line Cook) EKG - ER Stat (00:54 05/04/2016 Bryant Vásquez) (0:57 CHagerty ER Banquet Line Cook) CT Abd/Pel w Cont (No) (19/1.0) Urgent (01:22 05/04/2016 Bryant Vásquez) (Ack 1:32 CHagerty ER Banquet Line Cook) (2:07 RFay) UA-Culture if indicated Urgent (02:36 05/04/2016 Bryant Vásquez) (Ack 2:41 CHagerty ER Banquet Line Cook) (3:14 CHagerty ER Banquet Line Cook) MEDICATION ORDERS: Promethazine IV 25 mg (HIGH ALERT MEDICATION, NOW) (01:25 05/04/2016 Bryant Vásquez) (1:37 DBeyer R.N.) IV FLUIDS: IV NS : initial bolus none -, then 1000 mL/hr for X1 (NOW) (00:53 05/04/2016 Bryant Vásquez) (0:58 DBeyer R.N.) Zofran IV 4 mg (NOW) (00:54 05/04/2016 Bryant Vásquez) (0:56 DBeyer R.N.) Demerol IV 25 mg (HIGH ALERT MEDICATION, NOW) (01:03 05/04/2016 Bryant Vásquez) (1:04 Chris R.N.) Demerol IV 25 mg (HIGH ALERT MEDICATION, NOW) (01:25 05/04/2016 Bryant Vásquez) (1:37 Chris R.N.) ORDER SHEET NOTES: [Electronically signed by Malcom Cool Dr. (03:44 05/04/2016)] [Electronically signed by Hang Alanis R.N. (04:13 05/04/2016)] [Electronically locked/signed by Hang Alanis R.N. (04:13 05/04/2016)]
--- NOTE | 2016-05-04 03:41 | ED NURSING NOTES ---
Clinical Report - Nurses [facility] [address] [place] [address] 05/04/2016 0:29 [id number] Triage time 00:38 May 04 2016. Acuity: LEVEL 3. Chief Complaint: ABDOMINAL PAIN. --00:40 Hang Alanis R.N. 00:38 05/04/16. BP: 177/93. HR: 79. RR: 20. O2 saturation: 98%. Temp: 97.8 F. Pain level now 8/10. --00:40 Hang Alanis R.N. Weight: 79.3 kg stated. Height/Length: 68 inches Per Patient. BMI: 26.6. --00:40 Hang Alanis R.N. Medications Metoprolol Tartrate Oral (Tablet 25 mg) 1 tablet, BID. Pantoprazole Sodium Oral (Tablet Delayed Release 40 mg) 1 tablet, daily. Venlafaxine HCl ER Oral (Tablet Extended Release 24 Hour 150 mg) 1 tablet, DAILY. Zofran Oral (Tablet 4 mg) 1 tablet, PRN, NAUSEA. --00:39 Hang Alanis R.N. Allergies Penicillins. --00:39 Hang Alanis R.N. History Arrived by private vehicle. ( Pt states he is 10 days post op gall bladder this PM was awoken with sharp pain above incision site radiating towards chest.). SOCIAL HX: Heavy tobacco smoker. History of drug use: marijuana. No alcohol use. --00:40 Hang Alanis R.N. Primary physician (yoel 00:54 May 04 2016). --00:59 Hang Alanis R.N. Interventions ID and allergy band on patient. To treatment room. --00:40 Hang Alanis R.N. PHYSICAL ASSESSMENT GENERAL / NEURO / PSYCH: Alert. Oriented X 4. Appears anxious and in distress. HEENT: Pupils equal, round and reactive to light. RESPIRATORY: Respirations not labored. Breath sounds within normal limits. --00:55 Hang Alanis R.N. CVS: Normal sinus rhythm noted. Capillary refill less than 2 seconds. Pulses within normal limits. GI / : Abdominal tenderness. SKIN: Skin is warm. Skin is diaphoretic. --00:59 Hang Alanis R.N. NURSING PROGRESS NOTES 00:56 05/04/2016 Site #1 started via IV in the right antecubital space with an 18g angiocath, with aseptic technique and good blood return; one attempt. Blood drawn: rainbow set. Labeled in the presence of the patient. Saline lock flushed. --00:56 Hang Alanis R.N. 00:56 05/04/2016 Zofran (Ondansetron HCl) IVP 4 mg given. via site #1. Allergies verified and confirmed 5 rights. IV patency established. IV site checked: no pain, redness, or swelling. IV flushed thoroughly pre- and post-medication administration. IVP given by RN. --00:56 Hang Alanis R.N. 00:58 05/04/2016 Started bag #1 1000 mL IV Fluids IV NS (Saline); bolus of 1000 mL wide open via site #1. Allergies verified and confirmed 5 rights. IV patency established. IV site checked: no pain, redness, or swelling. IV flushed thoroughly pre- and post-medication administration. Completed per protocol. --00:58 Hang Alanis R.N. Monitoring of patient in place. Patient gowned. Reassurance given. Two patient identifiers checked. Call light placed in reach. Side rails up x 1. Bed placed in lowest position. --00:59 Hang Alanis R.N. EKG time: (57). EKG was ordered, performed by a tech and shown to the ED physician. --01:00 Avinash Alva, ER Telegraphic Typewriter Repairer 01:04 05/04/2016 Demerol (Meperidine HCl) IVP 25 mg given over 2 minute(s) via site #1. Allergies verified and confirmed 5 rights. IV patency established. IV site checked: no pain, redness, or swelling. IV flushed thoroughly pre- and post-medication administration. IVP given by RN. --01:04 Hang Alanis R.N. 01:37 05/04/2016 PROMETHAZINE IVP 25 mg given over 2 minute(s) via site #1. Allergies verified and confirmed 5 rights. IV patency established. IV site checked: no pain, redness, or swelling. IV flushed thoroughly pre- and post-medication administration. IVP given by RN. --01:37 Hang Alanis R.N. 01:37 05/04/2016 Demerol (Meperidine HCl) IVP 50 mg given over 2 minute(s) via site #1. Allergies verified and confirmed 5 rights. IV patency established. IV site checked: no pain, redness, or swelling. IV flushed thoroughly pre- and post-medication administration. IVP given by RN. --01:37 Hang Alanis R.N. ( Pt sleeping, 02 sat decreased to 85% pt hx sleep apnea started on 2L increased to 97%). --01:47 Hang Alanis R.N. 01:46 05/04/16. BP: 154/76. HR: 88. RR: 16. O2 saturation: 96%. Pain level now 4/10. --01:47 Hang Alanis R.N. ( Pt sleeping in bed wakes to verbal stimuli). --02:49 Hang Alanis R.N. 02:48 05/04/16. BP: 145/92. HR: 75. RR: 16. O2 saturation: 98%. --02:49 Hang Alanis R.N. Patient ID band checked for patient birthdate: family confirmed. Clean catch urine collected with return of yellow-colored clear urine; sample sent to lab for urinalysis. Specimen labeled in the presence of the patient. --03:15 Avinash Alva, MARCO A Telegraphic Typewriter Repairer. DISPOSITION / DISCHARGE Condition at departure: improved. No learning barriers present. Discharge instructions provided and reviewed with the patient and spouse. Reviewed medication(s) information. Patient verbalized understanding. Written instructions provided in Urdu. The patient was discharged by the physician. He was discharged home and accompanied by spouse. He left the Emergency Department in a wheelchair and via private vehicle. Spouse driving. ( Pt asleep in bed woke to verbal stimuli, pt to discharge in wheelchair with partner. Pt verbalized understanding of discharge instructions and follow up care.). --04:12 Hang Alanis R.N. 04:10 05/04/16. BP: 140/89. HR: 77. RR: 16. O2 saturation: 99%. Temp: 97.3 F. End tidal CO2: 0mmHg. --04:12 Hang Alanis R.N. Departure time: 0406. --04:13 Hang Alanis R.N. 04:13 05/04/16. Pain level now 0/10. --04:13 Hang Alanis R.N. Locked/Released at 05/04/2016 4:13 by Hang Alanis R.N.
--- NOTE | 2016-05-04 03:41 | ED ORDER SUMMARY ---
..... Patient: REYNA RODAS OrderSheet [facility] VisitID: [id number] [place] [address] 61y, M Registration Date/Time: 05/04/2016 ORDER SHEET Weight: 79.3 kg (stated) Allergies: Penicillins GENERAL ORDERS: CBC w Diff Urgent (00:54 05/04/2016 Bryant Vásquez) (Ack 0:58 CHagerty ER Outreach Educator) (1:33 CHagerty ER Outreach Educator) CMP Urgent (00:54 05/04/2016 Bryant Vásquez) (Ack 0:58 CHagerty ER Outreach Educator) (1:33 CHagerty ER Outreach Educator) Amylase Urgent (00:54 05/04/2016 Bryant Vásquez) (Ack 0:58 CHagerty ER Outreach Educator) (1:33 CHagerty ER Outreach Educator) Lipase Urgent (00:54 05/04/2016 Bryant Vásquez) (Ack 0:58 CHagerty ER Outreach Educator) (1:33 CHagerty ER Outreach Educator) EKG - ER Stat (00:54 05/04/2016 Bryant Vásquez) (0:57 CHagerty ER Outreach Educator) CT Abd/Pel w Cont (No) (19/1.0) Urgent (01:22 05/04/2016 Bryant Vásquez) (Ack 1:32 CHagerty ER Outreach Educator) (2:07 RFay) UA-Culture if indicated Urgent (02:36 05/04/2016 Bryant Vásquez) (Ack 2:41 CHagerty ER Outreach Educator) (3:14 CHagerty ER Outreach Educator) MEDICATION ORDERS: Promethazine IV 25 mg (HIGH ALERT MEDICATION, NOW) (01:25 05/04/2016 Bryant Vásquez) (1:37 DBeyer R.N.) IV FLUIDS: IV NS : initial bolus none -, then 1000 mL/hr for X1 (NOW) (00:53 05/04/2016 Bryant Vásquez) (0:58 DBeyer R.N.) Zofran IV 4 mg (NOW) (00:54 05/04/2016 Bryant Vásquez) (0:56 DBeyer R.N.) Demerol IV 25 mg (HIGH ALERT MEDICATION, NOW) (01:03 05/04/2016 Bryant Vásquez) (1:04 Chris R.N.) Demerol IV 25 mg (HIGH ALERT MEDICATION, NOW) (01:25 05/04/2016 Bryant Vásquez) (1:37 Chris R.N.) ORDER SHEET NOTES: [Electronically signed by Malcom Cool Dr. (03:44 05/04/2016)] [Electronically signed by Hang Alanis R.N. (04:13 05/04/2016)] [Electronically locked/signed by Hang Alanis R.N. (04:13 05/04/2016)]
--- NOTE | 2016-05-04 03:41 | ED CLINICAL REPORT ---
Clinical Report - Physicians/Mid Levels [facility] [address] [place] [address] 05/04/2016 0:29 Patient: REYNA RODAS Time Seen: 00:55; initial patient contact. Arrived- By private vehicle. Historian- patient. HISTORY OF PRESENT ILLNESS Chief Complaint: ABDOMINAL PAIN. At its maximum, severity described as moderate. When seen in the E.D., severity described as moderate. Modifying factors. Not worsened by anything. Not relieved by anything. This started last night and is still present. It was abrupt in onset and has been waxing/waning. It is described as "pain". No radiation. It is described as located in the right lower quadrant. The patient has had nausea and vomiting. No loss of appetite or diarrhea. Similar symptoms previously: None. Recent medical care: Not recently seen/assessed. REVIEW OF SYSTEMS No constipation, hematemesis, difficulty with urination or fever. Last bowel movement: yesterday. He has had chills. All systems otherwise negative, except as recorded above. PAST HISTORY Hepatitis C. Cholelithiasis. Chest Wall Pain. Acute Myocardial Infarction. Hepatitis. Depression. Gastroesophageal Reflux Disease. Abdominal Pain. Gallstone(s). Dental Abscess. Immunizations. Aat, liver disease . Sprain. Hemochromatosis. Syncope [RuleOut]. Additional Surgeries: Appendectomy. Lap Jazz 10 days ago. SOCIAL HISTORY Current every day smoker. History of drug use: marijuana. ADDITIONAL NOTES The nursing notes have been reviewed with agreement regarding the chief complaint, PMH and patient medications and allergies. PHYSICAL EXAM Vital Signs: 05/04/2016 00:38 BP: 177/93. HR: 79. RR: 20. O2 saturation: 98%. Temp: 97.8 F. Have been reviewed. Hypertensive. Heart rate normal. Respiratory rate normal. Temperature normal. Oxygen saturation normal. Appearance: Alert. Oriented X3. Appears to be in pain. Eyes: Eyes normal inspection. No scleral icterus. ENT: Dry mucous membranes present. CVS: Normal heart rate and rhythm. Heart sounds normal. Respiratory: No respiratory distress. Breath sounds normal. Abdomen: Soft. Moderate tenderness in the right lower quadrant with guarding present. No rebound tenderness. Bowel sounds normal. No organomegaly. No mass. No distention. Back: Normal inspection. No CVA tenderness. Skin: Normal skin color. No rash. Extremities: No lower extremity edema. Neuro: Oriented X 3. LABS, X-RAYS, AND EKG EKG: EKG time: (0058). No acute process. No acute ischemia. Normal EKG. Normal sinus rhythm. Rate: 73. Normal P waves. Normal SAMANTHA. Normal QRS complex. Normal axis. Normal ST and T waves, QT and QTc. Prior EKG unavailable. The study has been interpreted contemporaneously by me. The study has been independently viewed by me. The EKG appears to be a good tracing. I agree with and confirm the computer reading of the EKG. Interpretation time: 0100. Abdominal CT: Recent cholecystectomy w/ inflammatory stranding in RUQ w/ fluid in GB fossa. Moderate stool. Findings c/w gastroduodenitis. Study type: abdomen and pelvis. Abdominal CT performed with IV contrast. The study was interpreted by the radiologist and discussed with the radiologist. Interpretation time: 02:25. Laboratory Tests: UA-Culture if indicated: (HOLLY: 05/04/2016 03:14) ( MsgRcvd 05/04/2016 03:26) Final results Test Result Flag Units (Reference) URINE COLOR YELLOW URINE APPEARANCE CLEAR URINE GLUCOSE NEGATIVE (NEGATIVE) URINE BILIRUBIN NEGATIVE (NEGATIVE) URINE KETONE NEGATIVE (NEGATIVE) URINE SPECIFIC GRAVITY <= 1.005 L (1.010-1.030) URINE PH 7.0 (5.0-8.0) URINE PROTEIN NEGATIVE (NEGATIVE) URINE UROBILINOGEN 0.2 EU/dL (0.2-1.0) URINE NITRITE NEGATIVE (NEGATIVE) URINE BLOOD NEGATIVE (NEGATIVE) URINE LEUK ESTERASE NEGATIVE (NEGATIVE) URINE RBC 0-1 rbc/hpf (0-1) URINE WBC 0-1 wbc/hpf (0-1) URINE EPITHELIAL CELLS 0-1 EPI/hpf (0-5) URINE BACTERIA NONE SEEN (NONE SEEN) URINE COMMENT CULT NOT INDICATED URINE CULTURES ARE SET-UP BASED ON THE FOLLOWING CRITERIA:POSITIVE NITRITEPOSITIVE LEUKOCYTE ESTERASEGREATER THAN 10 WHITE BLOOD CELLSMODERATE (2+) OR GREATER BACTERIA CBC w Diff: (HOLLY: 05/04/2016 00:40) ( MsgRcvd 05/04/2016 01:01) Final results Test Result Flag Units (Reference) WHITE BLOOD COUNT 15.1 H K/uL (4.5-11.5) RED BLOOD COUNT 5.28 M/uL (4.50-5.90) HEMOGLOBIN 15.3 gm/dL (13.5-17.5) HEMATOCRIT 47.1 % (41.0-53.0) MEAN CELL VOLUME 89 fL (80-100) MEAN CORPUSCULAR HGB 29 pg (26-34) MEAN CORPUSCULAR HGB CONC 32 g/dL (31-37) RED CELL DISTRIBUTION WIDTH 14.9 H % (11.6-14.8) PLATELET COUNT 273 K/uL (150-400) NEUTROPHIL % 66.2 % (50-75) LYMPH % 23.0 L % (25-40) MONO % 10.0 % (3-14) EOSINOPHIL % 0.7 % (0-4) BASOPHIL % 0.1 % (0-2) CMP: (HOLLY: 05/04/2016 00:40) ( MsgRcvd 05/04/2016 01:11) Final results Test Result Flag Units (Reference) GLUCOSE 135 H mg/dL (70-110) BUN 19 H mg/dL (7-18) CREATININE 1.0 mg/dL (0.6-1.3) Estimated GFR >60 mL/min Estimated GFR- >60 mL/min Note: Persistent reduction over 3 months in eGFR<60 mL/min/1.73 m2 defines CKD. Patients with eGFR values>=60 mL/min/1.73 m2 may also have CKD if evidence ofpersistent proteinuria. Additional information may be foundat www.kidney.org. SODIUM 140 mmol/L (136-145) POTASSIUM 4.0 mmol/L (3.5-5.1) CHLORIDE 104 mmol/L (98-107) CARBON DIOXIDE 25 mmol/L (21-32) CALCIUM 8.8 mg/dL (8.5-10.1) TOTAL PROTEIN 8.0 g/dL (6.4-8.2) ALBUMIN 3.4 g/dL (3.3-5.0) BILIRUBIN, TOTAL 0.4 mg/dL (0.0-1.0) ALKALINE PHOSPHATASE 128 H U/L (46-116) AST (SGOT) 48 H U/L (15-37) ALT (SGPT) 90 H U/L (12-78) LIPASE 198 U/L (73-393) AMYLASE 50 U/L (25-115) . PROGRESS AND PROCEDURES Course of Care: 05/04/2016 02:48 BP: 145/92. HR: 75. RR: 16. O2 saturation: 98%. Vital Signs: have been reviewed. Hypertensive. Heart rate normal. Respiratory rate normal. Oxygen saturation normal. Discussed case with on-call health care provider, (call returned 02:36 Dr. Davey who performed the Lap jazz. No concern w/ CT findings, recommended U/A to make certain there in no UTI.). Reviewed test results and need for additional work-up. Disposition: Discharged home in good and improved condition. Condition: good. CLINICAL IMPRESSION Constipation Acute right lower quadrant abdominal pain of undetermined cause. INSTRUCTIONS Your Current Medications: CONTINUE TAKING THE FOLLOWING MEDICATIONS: Metoprolol Tartrate Oral : Tablet 25 mg, 1 tablet BID. Pantoprazole Sodium Oral : Tablet Delayed Release 40 mg, 1 tablet daily. Venlafaxine HCl ER Oral : Tablet Extended Release 24 Hour 150 mg, 1 tablet DAILY. Zofran Oral : Tablet 4 mg, 1 tablet PRN, NAUSEA. Prescription Medications: Zofran ODT 4 mg: take 1 orally every 6 hours as needed for nausea and vomiting. Dispense ten (10). No refill. Substitution is permissible. OxyIR 5 mg capsules: take 1-2 orally every 6 hours as needed for pain. Dispense fifteen (15). No refill. Follow-up: Follow up with your doctor in about two days. Call for an appointment. Blood pressure screening was not performed during this visit because the patient has an active diagnosis of hypertension. The patient should follow up with a primary care provider for blood pressure management. (Electronically signed by Malcom Cool Dr. 05/04/2016 3:44)
--- NOTE | 2016-05-04 04:14 | ED DISCHARGE INSTRUCTIONS ---
Patient: REYNA RODAS General Instructions [facility] VisitID: [id number] [place] [address] 61y, M Registration Date/Time: 05/04/2016 Constipation Acute right lower quadrant abdominal pain of undetermined cause. INSTRUCTIONS Your Current Medications: CONTINUE TAKING THE FOLLOWING MEDICATIONS: Metoprolol Tartrate Oral : Tablet 25 mg, 1 tablet BID. Pantoprazole Sodium Oral : Tablet Delayed Release 40 mg, 1 tablet daily. Venlafaxine HCl ER Oral : Tablet Extended Release 24 Hour 150 mg, 1 tablet DAILY. Zofran Oral : Tablet 4 mg, 1 tablet PRN, NAUSEA. Prescription Medications: Zofran ODT 4 mg: take 1 orally every 6 hours as needed for nausea and vomiting. Dispense ten (10). No refill. Substitution is permissible. OxyIR 5 mg capsules: take 1-2 orally every 6 hours as needed for pain. Dispense fifteen (15). No refill. Follow-up: Follow up with your doctor in about two days. Call for an appointment. Blood pressure screening was not performed during this visit because the patient has an active diagnosis of hypertension. The patient should follow up with a primary care provider for blood pressure management. ADDITIONAL INFORMATION Abdominal Pain,Uncertain Cause [Male] Based on your visit today, the exact cause of your abdominalpain is not clear. Your exam and tests do not indicate a dangerous cause at this time. However, the signs of a serious problem may take more time to appear. Although your evaluation was reassuring today, sometimes early in the course of many conditions, exam and lab tests can appear normal. Therefore, it is important for you to watch for any new symptoms or worsening of your condition. Causes It may not be obvious what caused your symptoms. Pay attention to things that do seem to make your symptoms worse or better and discuss this with your doctor when you follow up. Diagnosis The evaluation of abdominal pain in the emergency department may onlyrequire an exam by the doctor or it may include blood, urine or imaging studies, depending on many factors. Sometimes exams and tests can identify a cause but in many cases, a clear cause is not found. Further testing at follow up visits may help to suggest a clear diagnosis. Home Care Rest as much as possible until your next exam. Try to avoid any medications (unless otherwise directed by your doctor), foods, activities, or other factors that you may have contributed to your symptoms. Try to eat foods that you know that you have tolerated well in the past. Certain diets may be recommended for some conditions that cause abdominal pain. However, since the cause of your symptoms may not be clear, discuss your diet more with your primary care provider or specialist for further recommendations. Eating several small meals per day as opposed to 2 or 3 larger meals may help. Monitor closely for anything that may make your symptoms worse or better. Pay close attention to symptoms below that may indicate worsening of your condition. Follow Up and Precautions See your doctoras instructed or sooneror if your symptoms are not improving.In some cases, you may need more testing. When to Seek Medical Attention Contact your doctor or see medical attention ifany of the following occur: Pain is becoming worse You are unable to take your medications due to excessive vomiting Swelling of the abdomen Fever of 100.4F (38C) or higher, or as directed by your health care provider Blood in vomit or bowel movements (dark red or black color) Jaundice (yellow color of eyes and skin) New onset of weakness, dizziness or fainting New onset of chest, arm, back, neck or jaw pain Constipation (Adult) Constipation is bowel movements that are less frequent than usual. Stools often become very hard and difficult to pass. This may lead to abdominal pain and bloating. It may also cause painful bowel movements. Constipation may be due to a diet thats low in fiber. Some medications, especially pain medications, can also cause it. Constipation may be treated with enemas, suppositories, laxatives or stool softeners. Your doctor will advise you which will work best for you. Follow the advice below to help avoid this problem in the future. Home Care Medication: Take any medicines as directed. Some laxatives are safe only for occasional use. Others can be taken on a regular basis. Talk to your doctor or pharmacist if you have questions. General Care: Prescription pain medications can cause constipation. If you are prescribed pain medications, ask the doctor whether you should also take a stool softener. A diet high in fiber with plenty of fluids helps to maintain regular, soft bowel movements. The following foods are good sources of dietary fiber: Cereals and breads: Whole grain cereal with bran, oatmeal, rolled oats, whole grain breads Fruits: All fruits (fresh and dried), raisins, prunes, apricots, berries, figs Vegetables: Any fresh vegetables, especially peas, broccoli, brussels sprouts, winter squash, green beans, cauliflower, guzman beans, carrots Other: Popcorn, brown rice Drink plenty of water when you increase the amount of fiber you eat. Follow Up with your doctor or return to this facility if symptoms do not improve in the next few days. You may require further tests or a referral to a specialist. Get Prompt Medical Attention if any of the following occur: Fever over 100.4F (38C) Failure to resume normal bowel movements Increasing abdominal or back pain Nausea or vomiting Abdominal swelling Blood in the stool Weakness, dizziness or fainting Unexpected vaginal bleeding Ondansetron Oral disintegrating tablet What is this medicine? ONDANSETRON (on NEAL se aleks) is used to treat nausea and vomiting caused by chemotherapy. It is also used to prevent or treat nausea and vomiting after surgery. How should I use this medicine? These tablets are made to dissolve in the mouth. Do not try to push the tablet through the foil backing. With dry hands, peel away the foil backing and gently remove the tablet. Place the tablet in the mouth and allow it to dissolve, then swallow. While you may take these tablets with water, it is not necessary to do so. Talk to your nursing education specialist regarding the use of this medicine in children. Special care may be needed. What side effects may I notice from receiving this medicine? Side effects that you should report to your doctor or health health care sanitary technician as soon as possible: allergic reactions like skin rash, itching or hives, swelling of the face, lips, or tongue breathing problems dizziness fast or irregular heartbeat feeling faint or lightheaded, falls fever and chills swelling of the hands and feet tightness in the chest Side effects that usually do not require medical attention (report to your doctor or health health care sanitary technician if they continue or are bothersome): constipation or diarrhea headache What may interact with this medicine? Do not take this medicine with any of the following medications: -apomorphine -cisapride -dofetilide -dronedarone -pimozide -thioridazine -ziprasidone This medicine may also interact with the following medications: -carbamazepine -phenytoin -rifampicin -tramadol -other medicines that prolong the QT interval (cause an abnormal heart rhythm) What if I miss a dose? If you miss a dose, take it as soon as you can. If it is almost time for your next dose, take only that dose. Do not take double or extra doses. Where should I keep my medicine? Keep out of the reach of children. Store between 2 and 30 degrees C (36 and 86 degrees F). Throw away any unused medicine after the expiration date. What should I tell my health care provider before I take this medicine? They need to know if you have any of these conditions: heart disease history of irregular heartbeat liver disease low levels of magnesium or potassium in the blood an unusual or allergic reaction to ondansetron, granisetron, other medicines, foods, dyes, or preservatives or trying to get breast-feeding What should I watch for while using this medicine? Check with your doctor or health health care sanitary technician as soon as you can if you have any sign of an allergic reaction. Oxycodone Hydrochloride, Acetaminophen Oral tablet What is this medicine? ACETAMINOPHEN; OXYCODONE (a set a RIANA juan fen; ox i KOE done) is a pain reliever. It is used to treat mild to moderate pain. How should I use this medicine? Take this medicine by mouth with a full glass of water. Follow the directions on the prescription label. Take your medicine at regular intervals. Do not take your medicine more often than directed. Talk to your nursing education specialist regarding the use of this medicine in children. Special care may be needed. Patients over 65 years old may have a stronger reaction and need a smaller dose. What side effects may I notice from receiving this medicine? Side effects that you should report to your doctor or health health care sanitary technician as soon as possible: allergic reactions like skin rash, itching or hives, swelling of the face, lips, or tongue breathing difficulties, wheezing confusion light headedness or fainting spells severe stomach pain yellowing of the skin or the whites of the eyes Side effects that usually do not require medical attention (report to your doctor or health health care sanitary technician if they continue or are bothersome): dizziness drowsiness nausea vomiting What may interact with this medicine? alcohol antihistamines barbiturates like amobarbital, butalbital, butabarbital, methohexital, pentobarbital, phenobarbital, thiopental, and secobarbital benztropine drugs for bladder problems like solifenacin, trospium, oxybutynin, tolterodine, hyoscyamine, and methscopolamine drugs for breathing problems like ipratropium and tiotropium drugs for certain stomach or intestine problems like propantheline, homatropine methylbromide, glycopyrrolate, atropine, belladonna, and dicyclomine general anesthetics like etomidate, ketamine, nitrous oxide, propofol, desflurane, enflurane, halothane, isoflurane, and sevoflurane medicines for depression, anxiety, or psychotic disturbances medicines for sleep muscle relaxants naltrexone narcotic medicines (opiates) for pain phenothiazines like perphenazine, thioridazine, chlorpromazine, mesoridazine, fluphenazine, prochlorperazine, promazine, and trifluoperazine scopolamine tramadol trihexyphenidyl What if I miss a dose? If you miss a dose, take it as soon as you can. If it is almost time for your next dose, take only that dose. Do not take double or extra doses. Where should I keep my medicine? Keep out of the reach of children. This medicine can be abused. Keep your medicine in a safe place to protect it from theft. Do not share this medicine with anyone. Selling or giving away this medicine is dangerous and against the law. Store at room temperature between 20 and 25 degrees C (68 and 77 degrees F). Keep container tightly closed. Protect from light. This medicine may cause accidental overdose and if it is taken by other adults, children, or pets. Flush any unused medicine down the toilet to reduce the chance of harm. Do not use the medicine after the expiration date. What should I tell my health care provider before I take this medicine? They need to know if you have any of these conditions: brain tumor Crohn's disease, inflammatory bowel disease, or ulcerative colitis drink more than 3 alcohol containing drinks per day drug abuse or addiction head injury heart or circulation problems kidney disease or problems going to the bathroom liver disease lung disease, asthma, or breathing problems an unusual or allergic reaction to acetaminophen, oxycodone, other opioid analgesics, other medicines, foods, dyes, or preservatives or trying to get breast-feeding What should I watch for while using this medicine? Tell your doctor or health health care sanitary technician if your pain does not go away, if it gets worse, or if you have new or a different type of pain. You may develop tolerance to the medicine. Tolerance means that you will need a higher dose of the medication for pain relief. Tolerance is normal and is expected if you take this medicine for a long time. Do not suddenly stop taking your medicine because you may develop a severe reaction. Your body becomes used to the medicine. This does NOT mean you are addicted. Addiction is a behavior related to getting and using a drug for a non-medical reason. If you have pain, you have a medical reason to take pain medicine. Your doctor will tell you how much medicine to take. If your doctor wants you to stop the medicine, the dose will be slowly lowered over time to avoid any side effects. You may get drowsy or dizzy. Do not drive, use machinery, or do anything that needs mental alertness until you know how this medicine affects you. Do not stand or sit up quickly, especially if you are an older patient. This reduces the risk of dizzy or fainting spells. Alcohol may interfere with the effect of this medicine. Avoid alcoholic drinks. There are different types of narcotic medicines (opiates) for pain. If you take more than one type at the same time, you may have more side effects. Give your health care provider a list of all medicines you use. Your doctor will tell you how much medicine to take. Do not take more medicine than directed. Call emergency for help if you have problems breathing. The medicine will cause constipation. Try to have a bowel movement at least every 2 to 3 days. If you do not have a bowel movement for 3 days, call your doctor or health health care sanitary technician. Do not take Tylenol (acetaminophen) or medicines that have acetaminophen with this medicine. Too much acetaminophen can be very dangerous. Many nonprescription medicines contain acetaminophen. Always read the labels carefully to avoid taking more acetaminophen. You have been given the following additional information: Abdominal Pain, Unknown Cause, (Male) Constipation (Adult) Ondansetron Oral disintegrating tablet Oxycodone Hydrochloride, Acetaminophen Oral tablet (Electronically signed by Malcom Cool Dr. 05/04/2016 3:44)
--- NOTE | 2016-05-04 04:14 | ED MED RECONCILIATION SUMMARY ---
Patient: REYNA RODAS Medication Reconciliation Report [facility] VisitID: [id number] [address] [place] [address] 61y, M Registration Date/Time: 05/04/2016 Weight: 79.3 kg Height/Length: 68 in. BMI: 26.6 ALLERGIES: Penicillins The patient's Home Medications are listed below: CONTINUE TAKING THE FOLLOWING MEDICATIONS: Metoprolol Tartrate Oral (25 mg) 1 tablet, BID Pantoprazole Sodium Oral (40 mg) 1 tablet, daily Venlafaxine HCl ER Oral (150 mg) 1 tablet, DAILY Zofran Oral (4 mg) 1 tablet, PRN, NAUSEA The source(s) of the original Home Medication information: Not obtained. The following Medications were given to the patient in the Emergency Department: Zofran [IVP] IVP 4 mg, administered: 05/04/2016 12:56:00 AM IV NS IV Fluids bolus 1000 mL wide open, administered: 05/04/2016 12:58:00 AM Demerol [IVP] IVP 25 mg, administered: 05/04/2016 1:04:00 AM PROMETHAZINE [IVP] IVP 25 mg, administered: 05/04/2016 1:37:00 AM Demerol [IVP] IVP 50 mg, administered: 05/04/2016 1:37:00 AM The following Medications were prescribed to the patient: Zofran ODT 4 mg: take 1 orally every 6 hours as needed for nausea and vomiting. Dispense ten (10). No refill. Substitution is permissible. -- Malcom Cool Dr. OxyIR 5 mg capsules: take 1-2 orally every 6 hours as needed for pain. Dispense fifteen (15). No refill. -- Malcom Cool Dr.
--- NOTE | 2016-05-04 04:14 | ED MAR SUMMARY ---
..... Medication Administration Record [facility] [address] [place] [address] Patient: REYNA RODAS Visit ID: [id number] 61y, M Weight: 79.3 kg Height/Length: 68 in BMI: 26.6 ALLERGIES: Penicillins Given 00:56 05/04/2016 Hang Alanis R.N. Medication Administered: ZOFRAN [IVP] (ONDANSETRON HCL), Dose: 4 mg IVP, Site: #1 right AC. Medication Ordered: Zofran IV 4 mg (NOW). Start 00:58 05/04/2016 Hang Alanis R.N. Medication Administered: IV NS (SALINE), Dose: IV Fluids, Bolus: 1000 mL wide open, Dispensed: 1000 mL bag, Site: #1 right AC. Medication Ordered: IV NS : initial bolus none -, then 1000 mL/hr for X1 (NOW). Given 01:04 05/04/2016 Hang Alanis R.N. Medication Administered: DEMEROL [IVP] (MEPERIDINE HCL), Dose: 25 mg IVP over 2 minute(s), Site: #1 right AC. Medication Ordered: Demerol IV 25 mg (HIGH ALERT MEDICATION, NOW). Given 05/04/2016 Hang Alanis R.N. Medication Administered: DEMEROL [IVP] (MEPERIDINE HCL), Dose: 50 mg IVP over 2 minute(s), Site: #1 right AC. Medication Ordered: Demerol IV 25 mg (HIGH ALERT MEDICATION, NOW). Given 05/04/2016 Hang Alanis R.N. Medication Administered: PROMETHAZINE [IVP], Dose: 25 mg IVP over 2 minute(s), Site: #1 right AC. Medication Ordered: Promethazine IV 25 mg (HIGH ALERT MEDICATION, NOW).
--- NOTE | 2016-05-04 04:14 | ED MAR SUMMARY ---
..... Medication Administration Record [facility] [address] [place] [address] Patient: REYNA RODAS Visit ID: [id number] 61y, M Weight: 79.3 kg Height/Length: 68 in BMI: 26.6 ALLERGIES: Penicillins Given 00:56 05/04/2016 Hang Alanis R.N. Medication Administered: ZOFRAN [IVP] (ONDANSETRON HCL), Dose: 4 mg IVP, Site: #1 right AC. Medication Ordered: Zofran IV 4 mg (NOW). Start 00:58 05/04/2016 Hang Alanis R.N. Medication Administered: IV NS (SALINE), Dose: IV Fluids, Bolus: 1000 mL wide open, Dispensed: 1000 mL bag, Site: #1 right AC. Medication Ordered: IV NS : initial bolus none -, then 1000 mL/hr for X1 (NOW). Given 01:04 05/04/2016 Hang Alanis R.N. Medication Administered: DEMEROL [IVP] (MEPERIDINE HCL), Dose: 25 mg IVP over 2 minute(s), Site: #1 right AC. Medication Ordered: Demerol IV 25 mg (HIGH ALERT MEDICATION, NOW). Given 05/04/2016 Hang Alanis R.N. Medication Administered: DEMEROL [IVP] (MEPERIDINE HCL), Dose: 50 mg IVP over 2 minute(s), Site: #1 right AC. Medication Ordered: Demerol IV 25 mg (HIGH ALERT MEDICATION, NOW). Given 05/04/2016 Hang Alanis R.N. Medication Administered: PROMETHAZINE [IVP], Dose: 25 mg IVP over 2 minute(s), Site: #1 right AC. Medication Ordered: Promethazine IV 25 mg (HIGH ALERT MEDICATION, NOW).
--- NOTE | 2016-05-04 04:14 | ED MED RECONCILIATION SUMMARY ---
Patient: REYNA RODAS Medication Reconciliation Report [facility] VisitID: [id number] [address] [place] [address] 61y, M Registration Date/Time: 05/04/2016 Weight: 79.3 kg Height/Length: 68 in. BMI: 26.6 ALLERGIES: Penicillins The patient's Home Medications are listed below: CONTINUE TAKING THE FOLLOWING MEDICATIONS: Metoprolol Tartrate Oral (25 mg) 1 tablet, BID Pantoprazole Sodium Oral (40 mg) 1 tablet, daily Venlafaxine HCl ER Oral (150 mg) 1 tablet, DAILY Zofran Oral (4 mg) 1 tablet, PRN, NAUSEA The source(s) of the original Home Medication information: Not obtained. The following Medications were given to the patient in the Emergency Department: Zofran [IVP] IVP 4 mg, administered: 05/04/2016 12:56:00 AM IV NS IV Fluids bolus 1000 mL wide open, administered: 05/04/2016 12:58:00 AM Demerol [IVP] IVP 25 mg, administered: 05/04/2016 1:04:00 AM PROMETHAZINE [IVP] IVP 25 mg, administered: 05/04/2016 1:37:00 AM Demerol [IVP] IVP 50 mg, administered: 05/04/2016 1:37:00 AM The following Medications were prescribed to the patient: Zofran ODT 4 mg: take 1 orally every 6 hours as needed for nausea and vomiting. Dispense ten (10). No refill. Substitution is permissible. -- Malcom Cool Dr. OxyIR 5 mg capsules: take 1-2 orally every 6 hours as needed for pain. Dispense fifteen (15). No refill. -- Malcom Cool Dr.
--- NOTE | 2016-05-04 08:16 | DIAGNOSTIC IMAGING REPORT ---
PROCEDURE: CT ABD/PELVIS WITH CONTRAST INDICATION: Elevated liver function studies. Recent cholecystectomy (04/23/2016). History of hepatitis C and appendectomy. TECHNIQUE: 145 ml of Isovue 300 were injected intravenously and axial images were obtained of the entire abdomen and pelvis with sagittal and coronal reformations. Preliminary report provided by Kayla Hurt MD ([facility]). COMPARISON: Comparison is made to CT abdomen and pelvis on 04/22/2016. Comparison is also made to multiple ultrasound dating to 11/30/2007 (with most recent study on 04/22/1969). FINDINGS: ABDOMEN: Interim cholecystectomy with surgical clips in the postoperative changes of the surrounding tissues and small amount of free air. Trace free fluid. Mild edema and thickening of the gastric antrum and proximal duodenum. Common duct is normal (5 mm) and there is no evidence of intrahepatic ductal dilation. Liver and pancreas appear normal. Spleen, kidneys (5 cm left renal cyst with punctate calcification), and aorta are normal. Bowel pattern is normal. Mild to moderate degenerative changes of the lumbar spine. PELVIS: Mild enlargement prostate (4.7 cm). Pelvic structures are otherwise normal. No evidence of free fluid. IMPRESSION: 1. Interim cholecystectomy with postoperative changes right upper quadrant. 2. Small amount of free fluid and free air most compatible with postoperative changes. 3. Mild edema and thickening of the gastric antrum and proximal duodenum. Consider duodenitis. No evidence of viscus perforation. 4. Mild enlargement prostate (4.7 cm). 5. Findings discussed with Dr. Malcom Cool. All CT scans at this facility use dose modulation, iterative reconstruction, and/or weight-based dosing when appropriate to reduce radiation dose to as low as reasonably achievable.
== END 2016-05-04 04:06 | disposition home or self-care (01) ==
LOC: ED SRH 00:29
DX: R10.31 Right lower quadrant pain (principal); K59.00 Constipation, unspecified; B19.20 Unspecified viral hepatitis C without hepatic coma; K21.9 Gastro-esophageal reflux disease without esophagitis; F17.210 Nicotine dependence, cigarettes, uncomplicated; Z88.0 Allergy status to penicillin; Z79.899 Other long term (current) drug therapy
CPT/HCPCS: 90004; 90100; 92235; 92530; 95059

== ENCOUNTER 2016-05-05 18:00 | Observation (INO) | payer OTHER ==
[~2016-05-05] VITALS: Ht 172.7 cm; Wt 78.8 kg
--- NOTE | 2016-05-05 19:56 | DIAGNOSTIC IMAGING REPORT ---
PROCEDURE: XR ABDOMEN 1 VIEW UPRIGHT INDICATION: ABDOMINAL PAIN, initial encounter TECHNIQUE: AP upright view. COMPARISON: Acute abdominal series 02/17/[address] abdomen/pelvis 05/04/2016 FINDINGS: Cholecystectomy. Mild residual stool. Right lower quadrant artifact. There is no free air, mass or suspicious calcification. Mild degenerative changes of the spine. Minor bibasilar atelectasis. IMPRESSION: 1. Cholecystectomy 2. No evidence of free air.
--- NOTE | 2016-05-05 21:19 | ED NURSING NOTES ---
Clinical Report - Nurses [place] [address] [place] [address] 05/05/2016 18:00 Patient: REYNA RODAS TRIAGE Chief Complaint: (constipation). --18:05 David Balderas R.N. 18:05 05/05/16. BP: 146/94. HR: 90. RR: 26. O2 saturation: 95%. Temp: 98.1 F. Pain level now: 11/20. --18:07 David Balderas R.N. Weight: 78 kg stated. Height/Length: 68 inches Per Patient. BMI: 26.2. --18:04 David Balderas R.N. Medications Metoprolol Tartrate Oral. --18:02 David Balderas R.N. Pantoprazole Sodium Oral. --18:03 David Balderas R.N. Venlafaxine HCl ER Oral. --18:03 David Balderas R.N. OxyCODONE HCl Oral. --18:03 David Balderas R.N. Allergies Penicillin. --18:03 David Balderas R.N. History Arrived by private vehicle, and accompanied by family. Primary physician (Luis ). This is a recurrent problem. The patient has had nausea, vomiting and constipation. --18:05 David Balderas R.N. SOCIAL HX: Current every day light tobacco smoker (cigarette)- less than 1/2 a pack per day. Alcohol use. Patient is a recovering alcoholic. (sober for 24 years). No infectious disease exposure. FALL RISK ASSESSMENT: Fall risk assessment completed. No fall risk identified. NUTRITIONAL RISK ASSESSMENT: The nutritional risk assessment revealed no deficiencies. FUNCTIONAL ASSESSMENT: Functional assessment: no impairments noted. LEARNING NEEDS ASSESSMENT: The learning needs assessment revealed no barriers. --18:07 David Balderas R.N. ( Patient presents to the ED with symptoms of severe right lower quadrant abdominal pain. Patient states that he had a cholecystectomy and a liver biopsy on 04/24 and has problems with constipation and severe abdominal pain beginning on Thursday. Patient states that he sometimes has a vagal response to pain and passed out today. Patient states that is why the aid car was called.). --18:10 David Balderas R.N. PROBLEMS: Constipation. Cholecystitis. Hepatitis C. Cholelithiasis. Acute Myocardial Infarction. Hepatitis. Depression. Gastroesophageal Reflux Disease. Abdominal Pain. Gallstone(s). Immunizations. Aat, liver disease . Sprain. Hemochromatosis. --18:08 David Balderas R.N. Syncope [RuleOut]. --18:08 David Balderas R.N. ADDITIONAL SURGERIES: Cholecystectomy. --18:03 David Balderas R.N. Liver Biopsy. --18:04 David Balderas R.N. Appendectomy. --18:08 David Balderas R.N. PHYSICAL ASSESSMENT To room via stretcher. GENERAL / NEURO / PSYCH: Alert. Oriented X 4. Appears in no acute distress. HEENT: Mucous membranes are pink. RESPIRATORY: Respirations not labored. Breath sounds within normal limits. CVS: Normal sinus rhythm noted. Capillary refill less than 2 seconds. GI / : The patient has had nausea. Abdominal scar present. Abdominal distention. Abdominal tenderness. Guarding present in the right upper quadrant, right side of the abdomen and right lower quadrant. SKIN: Skin is warm and dry. --18:11 David Balderas R.N. NURSING PROGRESS NOTES Call light placed in reach. Side rails up x 1. Bed placed in lowest position. Brakes of bed on. --18:11 David Balderas R.N. 19:04 05/05/2016 Site #1 started via IV in the right forearm with an 18g angiocath; one attempt. Blood drawn: rainbow set. Labeled in the presence of the patient and sent to the lab. Saline lock flushed with 10 mL saline. --19:04 David Balderas R.N. 19:04 05/05/2016 Started bag #1 1000 mL IV Fluids IV NS (Saline); over 150 hour(s) via site #1 via IV pump. Allergies verified and confirmed 5 rights. IV patency established. IV site checked: no pain, redness, or swelling. IV flushed thoroughly pre- and post-medication administration. --19:04 David Balderas R.N. 19:04 05/05/2016 Ativan (LORazepam) IVP 1 mg given over 2 minute(s) via site #1. Allergies verified, confirmed 5 rights and sedative warning given to the patient. IV patency established. IV site checked: no pain, redness, or swelling. IV flushed thoroughly pre- and post-medication administration. IVP given by RN. --19:04 David Balderas R.N. Patient transported to radiology by stretcher with tech. ( Medicated patient. Encouraged patient to control his breathing. at the bedside.). --19:08 David Balderas R.N. 19:31 05/05/16. BP: 121/76. HR: 100. RR: 16. O2 saturation: 100%. Pain level now deferred. --19:31 David Balderas R.N. The patient is calm and resting quietly. Overall patient status is improved- he states feels better. --19:32 David Balderas R.N. ( Patient appears to be sleeping. Respirations even and unlabored vital signs are stable.). --20:00 David Balderas R.N. 20:34 05/05/2016 Dilaudid (HYDROmorphone HCl PF) IVP 1 mg given. via site #1. (HOLD). --20:34 David Balderas R.N. ( Patient appears to be sleeping, respirations even and unlabored. Vital signs stable.). --20:45 David Balderas R.N. 20:44 05/05/16. BP: 133/79. HR: 95. RR: 16. O2 saturation: 91%. Pain level now unable to obtain. --20:45 David Balderas R.N. The patient is calm and resting quietly. Overall patient status is improved- he states feels better. --21:56 David Balderas R.N. 21:55 05/05/16. BP: 127/81. HR: 100. RR: 16. O2 saturation: 92% on room air. --21:56 David Balderas R.N. ( Provided patient with a urinal,). --21:56 David Balderas R.N. Care transferred and report given (Ann Marie). --21:57 David Balderas R.N. Locked/Released at 05/05/2016 22:44 by David Balderas R.N.
--- NOTE | 2016-05-05 21:19 | ED CLINICAL REPORT ---
Clinical Report - Physicians/Mid Levels [facility] [address] [place] [address] 05/05/2016 18:00 Patient: REYNA RODAS Time Seen: 18:19 May 05 2016. Arrived- By ambulance. Historian- patient and EMS personnel. Note: (Post-op). CPT: ER phys charges level 5 (#[id number]). HISTORY OF PRESENT ILLNESS Chief Complaint: ABDOMINAL PAIN. At its maximum, severity described as severe. When seen in the E.D., severity described as severe. Modifying factors- worsened by movement. Not relieved by anything. It is described as "pain" and it is described as located in the right lower quadrant. This started about 2 days YOUTH NUTRITIONAL MONITOR and is still present. The patient has had nausea and loss of appetite. No vomiting or diarrhea. No recent travel. Similar symptoms previously: Recent medical care: The patient was seen recently at this facility and hospitalized. ( patient was admitted 2 weeks ago for abdominal pain and had a cholecystectomy. At the time of the surgery he also had a liver biopsy. Patient returned on 05/04/16 approximately 12 days after surgery with complaints of severe right lower quadrant abdominal pain. This was evaluated in the ER with complete lab and urine workup as well as CT exam of the abdomen with no etiology for the pain. Patient was sent home for follow-up in 2 days with the surgeon. Patient returns one day later now with worsening pain.). REVIEW OF SYSTEMS The patient has had constipation and abdominal pain. No black stools or stools, hematemesis or difficulty with urination or urination. No pain with urination, urinary frequency or urinary frequency or fever. No sore throat or throat, chest pain or pain or difficulty breathing. No cough, joint pain, skin rash or rash or chills. No back pain, chills, fever, calf pain or cough. No difficulty breathing, pedal edema, bloody stools, hematuria or alteration in mental status. No weakness, diabetic symptoms or easy bruising. All systems otherwise negative, except as recorded above. PAST HISTORY Constipation. Cholecystitis. Hepatitis C. Cholelithiasis. Acute Myocardial Infarction. Hepatitis. Depression. Gastroesophageal Reflux Disease. Abdominal Pain. Gallstone(s). Immunizations. Aat, liver disease . Sprain. Cholecystectomy. Liver Biopsy. Appendectomy. Hemochromatosis. --18:08 David Balderas R.N. Syncope [RuleOut]. Medications: OxyCODONE HCl Oral. Venlafaxine HCl ER Oral. Pantoprazole Sodium Oral. Metoprolol Tartrate Oral. Allergies: Penicillin. SOCIAL HISTORY Heavy tobacco smoker (cigarette)- less than 1 pack per day. Alcohol use. Patient is a recovering alcoholic. (dry for 24 years). No drug use. ADDITIONAL NOTES The nursing notes have been reviewed. PHYSICAL EXAM Vital Signs: 05/05/2016 18:05 BP: 146/94. HR: 90. RR: 26. O2 saturation: 95%. Temp: 98.1 F. Pain level now: 8/10. Appearance: Alert. Appears to be in pain. Patient in severe distress. Eyes: Eyes normal inspection. ENT: Pharynx normal. Neck: Normal inspection. CVS: Normal heart rate and rhythm. Heart sounds normal. Pulses normal. Respiratory: No respiratory distress. Breath sounds normal. Chest nontender. Abdomen: Severe tenderness in the right side of the abdomen and right lower quadrant with guarding present. Abnormal bowel sounds: diminished. No mass. Back: Normal inspection. Skin: Skin warm. Normal skin color. No rash. Extremities: Extremities exhibit normal ROM. No lower extremity edema. Neuro: Oriented X 3. No motor deficit. No sensory deficit. LABS, X-RAYS, AND EKG KUB: Normal abdominal study. Laboratory Tests: CBC w Diff: (HOLLY: 05/06/2016 07:15) ( MsgRcvd 05/06/2016 07:30) Final results Test Result Flag Units (Reference) WHITE BLOOD COUNT 11.7 H K/uL (4.5-11.5) RED BLOOD COUNT 5.13 M/uL (4.50-5.90) HEMOGLOBIN 14.9 gm/dL (13.5-17.5) HEMATOCRIT 46.3 % (41.0-53.0) MEAN CELL VOLUME 90 fL (80-100) MEAN CORPUSCULAR HGB 29 pg (26-34) MEAN CORPUSCULAR HGB CONC 32 g/dL (31-37) RED CELL DISTRIBUTION WIDTH 15.2 H % (11.6-14.8) PLATELET COUNT 282 K/uL (150-400) NEUTROPHIL % 57.5 % (50-75) LYMPH % 31.6 % (25-40) MONO % 9.6 % (3-14) EOSINOPHIL % 1.1 % (0-4) BASOPHIL % 0.2 % (0-2) CBC w Diff: (HOLLY: 05/05/2016 19:01) ( Mscvd 05/05/2016 19:13) Final results Test Result Flag Units (Reference) WHITE BLOOD COUNT 15.8 H K/uL (4.5-11.5) RED BLOOD COUNT 5.49 M/uL (4.50-5.90) HEMOGLOBIN 16.1 gm/dL (13.5-17.5) HEMATOCRIT 48.8 % (41.0-53.0) MEAN CELL VOLUME 89 fL (80-100) MEAN CORPUSCULAR HGB 29 pg (26-34) MEAN CORPUSCULAR HGB CONC 33 g/dL (31-37) RED CELL DISTRIBUTION WIDTH 15.0 H % (11.6-14.8) PLATELET COUNT 294 K/uL (150-400) NEUTROPHIL % 70.1 % (50-75) LYMPH % 21.7 L % (25-40) MONO % 7.4 % (3-14) EOSINOPHIL % 0.6 % (0-4) BASOPHIL % 0.2 % (0-2) CMP: (HOLLY: 05/05/2016 19:01) ( MsgRcvd 05/05/2016 21:39) Final results Test Result Flag Units (Reference) GLUCOSE 105 mg/dL (70-110) BUN 20 H mg/dL (7-18) CREATININE 1.0 mg/dL (0.6-1.3) Estimated GFR >60 mL/min Estimated GFR- >60 mL/min Note: Persistent reduction over 3 months in eGFR<60 mL/min/1.73 m2 defines CKD. Patients with eGFR values>=60 mL/min/1.73 m2 may also have CKD if evidence ofpersistent proteinuria. Additional information may be foundat www.kidney.org. SODIUM 140 mmol/L (136-145) POTASSIUM 4.0 mmol/L (3.5-5.1) CHLORIDE 103 mmol/L (98-107) CARBON DIOXIDE 25 mmol/L (21-32) CALCIUM 9.2 mg/dL (8.5-10.1) TOTAL PROTEIN 8.5 H g/dL (6.4-8.2) ALBUMIN 3.7 g/dL (3.3-5.0) BILIRUBIN, TOTAL 0.6 mg/dL (0.0-1.0) ALKALINE PHOSPHATASE 125 H U/L (46-116) AST (SGOT) 58 H U/L (15-37) ALT (SGPT) 104 H U/L (12-78) [id number]: (HOLLY: 05/05/2016 19:01) ( [facility] 05/05/2016 19:18) Final results Test Result Flag Units (Reference) C-REACTIVE PROTEIN 1.6 H mg/dL (0.0-0.9) Lactate, Serum: (HOLLY: 05/05/2016 19:01) ( [facility] 05/05/2016 19:32) Final results Test Result Flag Units (Reference) LACTIC ACID 1.3 mmol/L (0.4-2.0) [id number]: (HOLLY: 05/05/2016 19:01) ( [facility] 05/05/2016 19:39) Final results Test Result Flag Units (Reference) PROCALCITONIN <0.5 ng/mL (0-0.5) PCT Concentration: Interpretation : Risk/option for action PCT <=0.5 ng/mL : Systemic : Low risk forinfection(sepsis): progression to severeis not likely. : systemic infection.Local bacterial : CAUTION-PCT levelsinfection is : below 0.5 ng/mL do notpossible. : exclude an infection,because localizedinfections (withoutsystemic signs) may beassociated with suchlow levels. If PCT ismeasured very earlyafter a bacterialchallenge (usually <6hours), these valuesmay still be low. Inthis case PCT shouldbe re-assessed 6-24hours later. PCT >0.5 and : Systemic infection: Moderate risk for<= 2 ng/mL : (sepsis) is : progression to severepossible, but : systemic infection.other conditions : The patient should beare known to : closely monitoredelevate PCT. : both clinically andby re-assessing PCTwithin 6-24 hours. PCT > 2 ng/mL : Systemic infection: High risk for(sepsis) is likely: progression to severeunless other : systemic infection.causes are known. : PCT >= 10 ng/mL : Important systemic: High likelihood ofinflammatory : severe sepsis orresponse, almost : septic shock.exclusively due to:severe bacterial :sepsis or septic :shock. : . PROGRESS AND PROCEDURES Course of Care: IV NS Ativan 1 mg IV Dilaudid 1 mg IV Patient is stable. Symptoms better. It is not clear where the patient's pain is coming from. He's had a complete workup including CT scan and complete lab yesterday as well as repeat lab today. Discussed with Dr. Francis and will admit for further observation and workup. Patient does have evidence of gastritis and duodenitis on a CT scan from yesterday but location of pain doesn't appear congruous with that diagnosis. Patient will be admitted and made nothing by mouth so he can undergo an endoscope tomorrow as well. Discussed case with on-call health care provider, (Brown). Reviewed test results. Agreed upon treatment plan and decision to admit. Health care provider will see patient in hospital. Patient/family counseled. Old medical records ordered. Disposition orders written. Disposition: Admitted to Acute Care. CLINICAL IMPRESSION Acute right lower quadrant abdominal pain of undetermined cause. Recent post-op GB removal and liver biopsy. (Electronically signed by Steve Morton MD 05/06/2016 10:23)
--- NOTE | 2016-05-05 21:19 | ED ORDER SUMMARY ---
..... Patient: REYNA RODAS OrderSheet [facility] VisitID: [id number] [place] [address] 61y, M Registration Date/Time: 05/05/2016 ORDER SHEET Weight: 78.0 kg (stated) Allergies: Penicillin GENERAL ORDERS: Abdomen 1V Upright Urgent (18:48 05/05/2016 Jose VIEIRA) (Ack 18:54 RKboston) (19:23 Dory) CBC w Diff Urgent (18:50 05/05/2016 Jose VIEIRA) (Ack 18:54 Prakash) (19:57 RKaruga) CRP Urgent (18:50 05/05/2016 Jose VIEIRA) (Ack 18:54 RKboston) (19:57 RKaruga) PCT (Procalcitonin) Urgent (18:50 05/05/2016 Jose VIEIRA) (Ack 18:54 Prakash) (19:57 RKaruga) Lactate, Serum Urgent (18:50 05/05/2016 Jose VIEIRA) (Ack 18:54 Prakash) (19:57 RKaruga) CMP Urgent (21:17 05/05/2016 Jose VIEIRA) (Ack 21:19 RKaruga) MEDICATION ORDERS: IV FLUIDS: IV NS : initial bolus none -, then 150 mL/hr for 4h (NOW); Routine (18:47 05/05/2016 Jose VIEIRA) (19:04 Miguel R.N.) Dilaudid IV 1 mg (NOW) (18:47 05/05/2016 Jose VIEIRA) (20:34 HOShaughtrang R.N.) Ativan IV 1 mg (NOW) (18:47 05/05/2016 Jose VIEIRA) (19:04 Miguel R.N.) ORDER SHEET NOTES: [Electronically signed by David Balderas R.N. (22:44 05/05/2016)] [Electronically signed by Steve Morton MD (10:23 05/06/2016)] [Electronically locked/signed by David Balderas R.N. (22:44 05/05/2016)]
--- NOTE | 2016-05-05 21:19 | ED CLINICAL REPORT ---
Clinical Report - Physicians/Mid Levels [facility] [address] [place] [address] 05/05/2016 18:00 Patient: REYNA RODAS Time Seen: 18:19 May 05 2016. Arrived- By ambulance. Historian- patient and EMS personnel. Note: (Post-op). CPT: ER phys charges level 5 (#[id number]). HISTORY OF PRESENT ILLNESS Chief Complaint: ABDOMINAL PAIN. At its maximum, severity described as severe. When seen in the E.D., severity described as severe. Modifying factors- worsened by movement. Not relieved by anything. It is described as "pain" and it is described as located in the right lower quadrant. This started about 2 days ESL PROFESSOR and is still present. The patient has had nausea and loss of appetite. No vomiting or diarrhea. No recent travel. Similar symptoms previously: Recent medical care: The patient was seen recently at this facility and hospitalized. ( patient was admitted 2 weeks ago for abdominal pain and had a cholecystectomy. At the time of the surgery he also had a liver biopsy. Patient returned on 05/04/16 approximately 12 days after surgery with complaints of severe right lower quadrant abdominal pain. This was evaluated in the ER with complete lab and urine workup as well as CT exam of the abdomen with no etiology for the pain. Patient was sent home for follow-up in 2 days with the surgeon. Patient returns one day later now with worsening pain.). REVIEW OF SYSTEMS The patient has had constipation and abdominal pain. No black stools or stools, hematemesis or difficulty with urination or urination. No pain with urination, urinary frequency or urinary frequency or fever. No sore throat or throat, chest pain or pain or difficulty breathing. No cough, joint pain, skin rash or rash or chills. No back pain, chills, fever, calf pain or cough. No difficulty breathing, pedal edema, bloody stools, hematuria or alteration in mental status. No weakness, diabetic symptoms or easy bruising. All systems otherwise negative, except as recorded above. PAST HISTORY Constipation. Cholecystitis. Hepatitis C. Cholelithiasis. Acute Myocardial Infarction. Hepatitis. Depression. Gastroesophageal Reflux Disease. Abdominal Pain. Gallstone(s). Immunizations. Aat, liver disease . Sprain. Cholecystectomy. Liver Biopsy. Appendectomy. Hemochromatosis. --18:08 David Balderas R.N. Syncope [RuleOut]. Medications: OxyCODONE HCl Oral. Venlafaxine HCl ER Oral. Pantoprazole Sodium Oral. Metoprolol Tartrate Oral. Allergies: Penicillin. SOCIAL HISTORY Heavy tobacco smoker (cigarette)- less than 1 pack per day. Alcohol use. Patient is a recovering alcoholic. (dry for 24 years). No drug use. ADDITIONAL NOTES The nursing notes have been reviewed. PHYSICAL EXAM Vital Signs: 05/05/2016 18:05 BP: 146/94. HR: 90. RR: 26. O2 saturation: 95%. Temp: 98.1 F. Pain level now: 8/10. Appearance: Alert. Appears to be in pain. Patient in severe distress. Eyes: Eyes normal inspection. ENT: Pharynx normal. Neck: Normal inspection. CVS: Normal heart rate and rhythm. Heart sounds normal. Pulses normal. Respiratory: No respiratory distress. Breath sounds normal. Chest nontender. Abdomen: Severe tenderness in the right side of the abdomen and right lower quadrant with guarding present. Abnormal bowel sounds: diminished. No mass. Back: Normal inspection. Skin: Skin warm. Normal skin color. No rash. Extremities: Extremities exhibit normal ROM. No lower extremity edema. Neuro: Oriented X 3. No motor deficit. No sensory deficit. LABS, X-RAYS, AND EKG KUB: Normal abdominal study. Laboratory Tests: CBC w Diff: (HOLLY: 05/06/2016 07:15) ( MsgRcvd 05/06/2016 07:30) Final results Test Result Flag Units (Reference) WHITE BLOOD COUNT 11.7 H K/uL (4.5-11.5) RED BLOOD COUNT 5.13 M/uL (4.50-5.90) HEMOGLOBIN 14.9 gm/dL (13.5-17.5) HEMATOCRIT 46.3 % (41.0-53.0) MEAN CELL VOLUME 90 fL (80-100) MEAN CORPUSCULAR HGB 29 pg (26-34) MEAN CORPUSCULAR HGB CONC 32 g/dL (31-37) RED CELL DISTRIBUTION WIDTH 15.2 H % (11.6-14.8) PLATELET COUNT 282 K/uL (150-400) NEUTROPHIL % 57.5 % (50-75) LYMPH % 31.6 % (25-40) MONO % 9.6 % (3-14) EOSINOPHIL % 1.1 % (0-4) BASOPHIL % 0.2 % (0-2) CBC w Diff: (HOLLY: 05/05/2016 19:01) ( Mscvd 05/05/2016 19:13) Final results Test Result Flag Units (Reference) WHITE BLOOD COUNT 15.8 H K/uL (4.5-11.5) RED BLOOD COUNT 5.49 M/uL (4.50-5.90) HEMOGLOBIN 16.1 gm/dL (13.5-17.5) HEMATOCRIT 48.8 % (41.0-53.0) MEAN CELL VOLUME 89 fL (80-100) MEAN CORPUSCULAR HGB 29 pg (26-34) MEAN CORPUSCULAR HGB CONC 33 g/dL (31-37) RED CELL DISTRIBUTION WIDTH 15.0 H % (11.6-14.8) PLATELET COUNT 294 K/uL (150-400) NEUTROPHIL % 70.1 % (50-75) LYMPH % 21.7 L % (25-40) MONO % 7.4 % (3-14) EOSINOPHIL % 0.6 % (0-4) BASOPHIL % 0.2 % (0-2) CMP: (HOLLY: 05/05/2016 19:01) ( MsgRcvd 05/05/2016 21:39) Final results Test Result Flag Units (Reference) GLUCOSE 105 mg/dL (70-110) BUN 20 H mg/dL (7-18) CREATININE 1.0 mg/dL (0.6-1.3) Estimated GFR >60 mL/min Estimated GFR- >60 mL/min Note: Persistent reduction over 3 months in eGFR<60 mL/min/1.73 m2 defines CKD. Patients with eGFR values>=60 mL/min/1.73 m2 may also have CKD if evidence ofpersistent proteinuria. Additional information may be foundat www.kidney.org. SODIUM 140 mmol/L (136-145) POTASSIUM 4.0 mmol/L (3.5-5.1) CHLORIDE 103 mmol/L (98-107) CARBON DIOXIDE 25 mmol/L (21-32) CALCIUM 9.2 mg/dL (8.5-10.1) TOTAL PROTEIN 8.5 H g/dL (6.4-8.2) ALBUMIN 3.7 g/dL (3.3-5.0) BILIRUBIN, TOTAL 0.6 mg/dL (0.0-1.0) ALKALINE PHOSPHATASE 125 H U/L (46-116) AST (SGOT) 58 H U/L (15-37) ALT (SGPT) 104 H U/L (12-78) [id number]: (HOLLY: 05/05/2016 19:01) ( [facility] 05/05/2016 19:18) Final results Test Result Flag Units (Reference) C-REACTIVE PROTEIN 1.6 H mg/dL (0.0-0.9) Lactate, Serum: (HOLLY: 05/05/2016 19:01) ( [facility] 05/05/2016 19:32) Final results Test Result Flag Units (Reference) LACTIC ACID 1.3 mmol/L (0.4-2.0) [id number]: (HOLLY: 05/05/2016 19:01) ( [facility] 05/05/2016 19:39) Final results Test Result Flag Units (Reference) PROCALCITONIN <0.5 ng/mL (0-0.5) PCT Concentration: Interpretation : Risk/option for action PCT <=0.5 ng/mL : Systemic : Low risk forinfection(sepsis): progression to severeis not likely. : systemic infection.Local bacterial : CAUTION-PCT levelsinfection is : below 0.5 ng/mL do notpossible. : exclude an infection,because localizedinfections (withoutsystemic signs) may beassociated with suchlow levels. If PCT ismeasured very earlyafter a bacterialchallenge (usually <6hours), these valuesmay still be low. Inthis case PCT shouldbe re-assessed 6-24hours later. PCT >0.5 and : Systemic infection: Moderate risk for<= 2 ng/mL : (sepsis) is : progression to severepossible, but : systemic infection.other conditions : The patient should beare known to : closely monitoredelevate PCT. : both clinically andby re-assessing PCTwithin 6-24 hours. PCT > 2 ng/mL : Systemic infection: High risk for(sepsis) is likely: progression to severeunless other : systemic infection.causes are known. : PCT >= 10 ng/mL : Important systemic: High likelihood ofinflammatory : severe sepsis orresponse, almost : septic shock.exclusively due to:severe bacterial :sepsis or septic :shock. : . PROGRESS AND PROCEDURES Course of Care: IV NS Ativan 1 mg IV Dilaudid 1 mg IV Patient is stable. Symptoms better. It is not clear where the patient's pain is coming from. He's had a complete workup including CT scan and complete lab yesterday as well as repeat lab today. Discussed with Dr. Francis and will admit for further observation and workup. Patient does have evidence of gastritis and duodenitis on a CT scan from yesterday but location of pain doesn't appear congruous with that diagnosis. Patient will be admitted and made nothing by mouth so he can undergo an endoscope tomorrow as well. Discussed case with on-call health care provider, (Brown). Reviewed test results. Agreed upon treatment plan and decision to admit. Health care provider will see patient in hospital. Patient/family counseled. Old medical records ordered. Disposition orders written. Disposition: Admitted to Acute Care. CLINICAL IMPRESSION Acute right lower quadrant abdominal pain of undetermined cause. Recent post-op GB removal and liver biopsy. (Electronically signed by Steve Morton MD 05/06/2016 10:23)
--- NOTE | 2016-05-05 21:19 | ED ORDER SUMMARY ---
..... Patient: REYNA RODAS OrderSheet [facility] VisitID: [id number] [place] [address] 61y, M Registration Date/Time: 05/05/2016 ORDER SHEET Weight: 78.0 kg (stated) Allergies: Penicillin GENERAL ORDERS: Abdomen 1V Upright Urgent (18:48 05/05/2016 Jose VIEIRA) (Ack 18:54 RKboston) (19:23 Dory) CBC w Diff Urgent (18:50 05/05/2016 Jose VIEIRA) (Ack 18:54 Prakash) (19:57 RKaruga) CRP Urgent (18:50 05/05/2016 Jose VIEIRA) (Ack 18:54 RKboston) (19:57 RKaruga) PCT (Procalcitonin) Urgent (18:50 05/05/2016 Jose VIEIRA) (Ack 18:54 Prakash) (19:57 RKaruga) Lactate, Serum Urgent (18:50 05/05/2016 Jose VIEIRA) (Ack 18:54 Prakash) (19:57 RKaruga) CMP Urgent (21:17 05/05/2016 Jose VIEIRA) (Ack 21:19 RKaruga) MEDICATION ORDERS: IV FLUIDS: IV NS : initial bolus none -, then 150 mL/hr for 4h (NOW); Routine (18:47 05/05/2016 Jose VIEIRA) (19:04 Miguel R.N.) Dilaudid IV 1 mg (NOW) (18:47 05/05/2016 Jose VIEIRA) (20:34 HOShaughtrang R.N.) Ativan IV 1 mg (NOW) (18:47 05/05/2016 Jose VIEIRA) (19:04 Miguel R.N.) ORDER SHEET NOTES: [Electronically signed by David Balderas R.N. (22:44 05/05/2016)] [Electronically signed by Steve Morton MD (10:23 05/06/2016)] [Electronically locked/signed by David Balderas R.N. (22:44 05/05/2016)]
[2016-05-05 22:55] VITALS: BP 136/90
[2016-05-06] VITALS (11 sets, daily range): BP systolic 118–152; BP diastolic 67–91
--- NOTE | 2016-05-06 00:45 | HISTORY AND PHYSICAL ---
ADMITTED: 05/05/2016 CHIEF COMPLAINT: 1. Abdominal pain HISTORY OF PRESENT ILLNESS: The patient is a 61-year-old male who has a history of hepatitis C, hemochromatosis, alpha-1 antitrypsin deficiency, who had been doing well until probably 2 weeks ago when he developed problems with his gallbladder. He had a cholecystectomy performed here approximately 10 days ago without complication and was discharged the following day. He was recovering well until 2 days ago when he developed severe right lower quadrant abdominal pain. He was seen at the [facility] Emergency Department and where a CAT scan was unrevealing and sent home. Today he had seen his md ophthalmologist and afterwards at home had such severe abdominal pain again in the right lower quadrant that he passed out. He was brought to the emergency department. Workup there revealed a white blood count of 15,000 and a through position abdomen that was benign. A CAT scan was not repeated. He is admitted at this time for observation for severe recalcitrant right lower quadrant pain post-cholecystectomy. Surgeon has been notified and will see him tomorrow. MEDICAL/SURGICAL HISTORY: Past medical history: Hemochromatosis, alpha-1 antitrypsin deficiency, GERD, history of hepatitis C, cholelithiasis, status post cholecystectomy acutely, history of AMI, depression, hypertension. Past surgical history: He is status post appendectomy and cholecystectomy. MEDICATIONS: 1. Metoprolol tartrate 25 mg b.i.d. 2. Oxycodone 5 mg as needed. 3. Pantoprazole 40 mg daily. 4. Venlafaxine 150 mg ER daily for depression. ALLERGIES: 1. HE IS ALLERGIC TO PENICILLIN. CODE STATUS: THE PATIENT DOES NOT HAVE ADVANCED DIRECTIVES ON FILE. SOCIAL HISTORY: He is a smoker. Does not use alcohol for 24 years. The patient is . As mentioned, does not drink. Apparently, he smokes. Does not do drugs other than marijuana for pain or appetite. FAMILY HISTORY: Significant for his mother having hemochromatosis. His daughters have autoimmune diseases. He does not know his father. REVIEW OF SYSTEMS: Basically the patient is doing okay other than his persistent right lower quadrant pain, which is quite severe at this time. He is constipated, has not had a bowel movement. Denies any ear, nose and throat problems currently. He does have periodic phlebotomies, but is not due for one now for his hemochromatosis. Denies any bladder problems. He has not had any recent ear, nose or throat difficulty. No cough, flu or congestion as is going around. He denies any shortness of breath. He has not had any recent chest pains, palpitations. There is no edema. He has no problems on the skin other than some skin tags and he denies any swollen glands. Twelve-point review of systems is otherwise negative. PHYSICAL EXAMINATION: VITAL SIGNS: Temperature 98.8, pulse 92, respirations 16, blood pressure 136/90, oxygen 94%. GENERAL: The patient is awake, alert, in moderate distress intermittently. HEENT: PERRLA. EOMI. Pharynx is moist. Poor dentition. NECK: Supple. There is no thyromegaly, mass, or bruit. LUNGS: Clear to auscultation. HEART: Rate and rhythm is irregular without murmur, click, rub or gallop. BACK: No CVAT. ABDOMEN: Guarded and firm. There is tenderness in the right lower quadrant. He has bowel sounds throughout. There is no definite rebound to percussion. GENITALIA: Unremarkable. EXTREMITIES: Showed no clubbing, cyanosis, or edema. Joints are supple and mobile. SKIN: No significant lesions, although there is a skin tag on the right anterior hip area. LAB/IMAGING: Laboratory showed a white blood cell count of 15.8 with normal hemoglobin and hematocrit. Chemistry panel is mostly unremarkable except for a slightly elevated AST of 58, ALT of 104 and alkaline phosphatase of 125. Normal procalcitonin. Elevated CRP at 1.6, I believe. Protein of 8.5. IMPRESSION/PLAN: 1. Right lower quadrant abdominal pain, postoperative cholecystectomy, it is unclear what exactly is causing this pain as the CAT scan and abdominal films are negative. His white count is elevated; however, he is without fever. His pain seems localized to the right lower quadrant. I would be concerned about a local loculation, although this does not show up on CT scan. Perhaps he has a herniation of the trocar sites or a hematoma developing. We will ask him to be seen by Surgery in the morning and keep him n.p.o. 2. Hemochromatosis, treated with phlebotomies. 3. Alpha-1 antitrypsin. A liver biopsy was done at the time of cholecystectomy. 4. Hypertension, mildly elevated. 5. Hepatitis C, appears stable. 6. Gastroesophageal reflux disease with some duodenitis possibly noted on the CT scan of the abdomen yesterday.
[2016-05-06] MEDS ORDERED: DOCUSATE SODIU100 MG PO (07:24)
--- NOTE | 2016-05-06 08:09 | Progress Note ---
Subjective General Note Date: May 06, 2016 Admission Date: May 05, 2016 Hospital Day: 2 PCP: None Status: Inpatient Advanced Directive: FULL CODE Room: 210-A Brief History: The patient is a 61-year-old white male with a significant past medical history of cholelithiasis status post cholecystectomy, hemochromatosis, alpha 1 antitrypsin deficiency, gastroesophageal reflux, hepatitis C, depression, hypertension, who presented to [facility] emergency room on the day of admission secondary to complaints of abdominal pain. ER evaluation was consistent with right lower quadrant abdominal pain of unknown etiology. Secondary to the above , the patient was admitted by Willam Garcia M.D. for surgical consultation by Rafael Freeman M.D. for further evaluation and treatment. For other history present illness, past medical history, family history, social history, review of systems, and admission physical examination please see the patient's history and physical examination and ER visit note in the patient's medical record. Subjective: The patient continues complaining of right lower quadrant pain and nausea. Complains of dry mouth. Patient requests: Patient wishes something to wet mouth. Medications and Allergies Medications Current Medications Sig/Anisha Start time Last Medication Dose Route Stop Time Status Admin Pantoprazole Sodium 40 MG DAILY@0600 05/06 0600 05/06 IV 0620 Hydromorphone HCl See Dose .SEE DOSE INSTRUCT.. 05/06 0230 05/06 Insts (1) IV 0252 Lorazepam 1 MG Q8H PRN 05/06 0230 AC PO Naloxone HCl 0.2 MG .Q2 MIN UP TO 10 M.. 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 = DOSE = LOCKOUT = 4 HR LIMIT = CONTINUOUS = Allergies Coded Allergies: Penicillins (Unknown reaction - was to he is alergic while in the [employer] 05/05/16) Physical Exam Vital Signs / I&Os Vital Signs Date Time Temp Pulse Resp B/P Pulse O2 O2 Flow FiO2 Ox Delivery Rate 05/06 0744 97.5 100 22 141/90 94 Room Air 0.0 05/06 0536 68 16 118/71 96 2.0 05/06 0245 97.7 79 20 118/71 91 Nasal 2.0 Cannula 05/06 0230 78 24 93 2.0 05/05 2330 Room Air 05/05 2255 98.8 92 16 136/90 94 Room Air I&O 05/06 0000 05/05 1600 05/05 0800 Intake Total 0 Output Total Balance 0 General Appearance Alert, Oriented X3, Cooperative, Mild distress Lungs Clear to auscultation Cardiovascular Regular rate and rhythm, Normal S1 and S2 Abdomen mild diffuse tenderness most significant right lower quadrant Extremities No cyanosis, No clubbing, No edema Neurological Grossly normal, mildly lethargic Psych/Mental Status Mental status normal, slight lethargy probably medication related LAB Results Laboratory Tests 05/06 05/05 05/05 05/05 05/05 0715 1901 190 [id number] Chemistry Plasma Sodium (136 - 145 mmol/L) 140 Plasma Potassium (3.5 - 5.1 mmol/L) 4.0 Plasma Chloride (98 - 107 mmol/L) 103 CO2 (Enzymatic) (21 - 32 mmol/L) 25 BUN (7 - 18 mg/dL) 20 Creatinine (0.6 - 1.3 mg/dL) 1.0 Est GFR ( Amer) (mL/min) >60 Est GFR (Non-Af Amer) (mL/min) >60 Glucose (70 - 110 mg/dL) 105 Lactic Acid (0.4 - 2.0 mmol/L) 1.3 Plasma Calcium (8.5 - 10.1 mg/dL) 9.2 Total Bilirubin (0.0 - 1.0 mg/dL) 0.6 AST (15 - 37 U/L) 58 ALT (12 - 78 U/L) 104 Alkaline Phosphatase (46 - 116 U/L) 125 C-Reactive Protein (0.0 - 0.9 mg/dL) 1.6 Total Protein (6.4 - 8.2 g/dL) 8.5 Albumin (3.3 - 5.0 g/dL) 3.7 Procalcitonin (0 - 0.5 ng/mL) <0.5 Hematology WBC (4.5 - 11.5 K/uL) 11.7 15.8 RBC (4.50 - 5.90 M/uL) 5.13 5.49 Hgb (13.5 - 17.5 gm/dL) 14.9 16.1 Hct (41.0 - 53.0 %) 46.3 48.8 MCV (80 - 100 fL) 90 89 MCH (26 - 34 pg) 29 29 RDW (11.6 - 14.8 %) 15.2 15.0 Neut % (Auto) (50 - 75 %) 57.5 70.1 Lymph % (Auto) (25 - 40 %) 31.6 21.7 [place] % (Auto) (3 - 14 %) 9.6 7.4 Eos % (Auto) (0 - 4 %) 1.1 0.6 Baso % (Auto) (0 - 2 %) 0.2 0.2 Plt Count, EDTA (150 - 400 K/uL) 282 294 PUBS MCHC (31 - 37 g/dL) 32 33 Imaging Abdominal x-ray IMPRESSION: 1. Cholecystectomy 2. No evidence of free air. Dictated by: ESSENCE HART MD D: MIGUEL ANGEL;05/05/161955 Assessment and Plan Problem List 1. Hypertension Status Chronic Onset Date Unknown Plan -Blood pressure borderline elevated -Low-salt diet when taking orally -Continue outpatient antihypertensive regimen, if unable to take oral meds substitute topical/IV medications -Monitor 2. Acute cholecystitis Plan -Patient is status post acute cholecystitis with arthroscopic cholecystectomy -Follow per surgery-Dr. Hernandez 3. Chronic liver disease Plan -No further evaluation -Liver function test stable but remains abnormal -Outpatient follow-up with PCP/gastroenterology -Monitor 4. Abdominal pain Plan -Patient presents with right-sided abdominal pain -Etiology unclear -Planned laparoscopic evaluation this p.m. per Dr. Hernandez -Follow per general surgery, defer all further treatment to Dr. Hernandez 5. Hepatitis C Status Chronic Onset Date Unknown Plan -No further evaluation at this time -Attempt to obtain records regarding previous evaluation/treatment -Recommend outpatient treatment she does not have been performed prior to this hospitalization 6. Gastroesophageal reflux Status Chronic Onset Date Unknown Plan -Patient with history of gastroesophageal reflux -Protonix 40 mg IV daily -Monitor Current status: Fair, unstable Anticipated discharge date: Anticipated discharge in 2-3 days Anticipated discharge placement: Home Patient care time: Time spent in chart review, patient interview, physical exam, CPOE, and care documentation: 25 minutes Visit to patient today: 1 Complexity of care: Moderate We'll defer treatment of abdominal pain to surgical staff. Continue to follow for medical problems. E&M Codes Rounding: Inpt-Moderate/[id number]
--- NOTE | 2016-05-06 10:23 | ED MED RECONCILIATION SUMMARY ---
Patient: REYNA RODAS Medication Reconciliation Report [facility] VisitID: [id number] [address] [place] [address] 61y, M Registration Date/Time: 05/05/2016 Weight: 78.0 kg Height/Length: 68 in. BMI: 26.2 ALLERGIES: Penicillin The patient's Home Medications are listed below: THE FOLLOWING MEDICATIONS NEED TO BE RECONCILED: Metoprolol Tartrate Oral OxyCODONE HCl Oral Pantoprazole Sodium Oral Venlafaxine HCl ER Oral The source(s) of the original Home Medication information: Not obtained. The following Medications were given to the patient in the Emergency Department: IV NS IV Fluids bolus 0, administered: 05/05/2016 7:04:00 PM Ativan [IVP] IVP 1 mg, administered: 05/05/2016 7:04:00 PM Dilaudid [IVP] IVP 1 mg, administered: 05/05/2016 8:34:00 PM The following Medications were prescribed to the patient: None.
--- NOTE | 2016-05-06 10:23 | ED DISCHARGE INSTRUCTIONS ---
Patient: REYNA RODAS General Instructions [facility] VisitID: [id number] [place] [address] 61y, M Registration Date/Time: 05/05/2016 Acute right lower quadrant abdominal pain of undetermined cause. Recent post-op GB removal and liver biopsy. ADDITIONAL INFORMATION Abdominal Pain,Uncertain Cause [Male] Based on your visit today, the exact cause of your abdominalpain is not clear. Your exam and tests do not indicate a dangerous cause at this time. However, the signs of a serious problem may take more time to appear. Although your evaluation was reassuring today, sometimes early in the course of many conditions, exam and lab tests can appear normal. Therefore, it is important for you to watch for any new symptoms or worsening of your condition. Causes It may not be obvious what caused your symptoms. Pay attention to things that do seem to make your symptoms worse or better and discuss this with your doctor when you follow up. Diagnosis The evaluation of abdominal pain in the emergency department may onlyrequire an exam by the doctor or it may include blood, urine or imaging studies, depending on many factors. Sometimes exams and tests can identify a cause but in many cases, a clear cause is not found. Further testing at follow up visits may help to suggest a clear diagnosis. Home Care Rest as much as possible until your next exam. Try to avoid any medications (unless otherwise directed by your doctor), foods, activities, or other factors that you may have contributed to your symptoms. Try to eat foods that you know that you have tolerated well in the past. Certain diets may be recommended for some conditions that cause abdominal pain. However, since the cause of your symptoms may not be clear, discuss your diet more with your primary care provider or specialist for further recommendations. Eating several small meals per day as opposed to 2 or 3 larger meals may help. Monitor closely for anything that may make your symptoms worse or better. Pay close attention to symptoms below that may indicate worsening of your condition. Follow Up and Precautions See your doctoras instructed or sooneror if your symptoms are not improving.In some cases, you may need more testing. When to Seek Medical Attention Contact your doctor or see medical attention ifany of the following occur: Pain is becoming worse You are unable to take your medications due to excessive vomiting Swelling of the abdomen Fever of 100.4F (38C) or higher, or as directed by your health care provider Blood in vomit or bowel movements (dark red or black color) Jaundice (yellow color of eyes and skin) New onset of weakness, dizziness or fainting New onset of chest, arm, back, neck or jaw pain You have been given the following additional information: Abdominal Pain, Unknown Cause, (Male) (Electronically signed by Steve Morton MD 05/06/2016 10:23)
--- NOTE | 2016-05-06 10:23 | ED MAR SUMMARY ---
..... Medication Administration Record [facility] [address] [place] [address] Patient: REYNA RODAS Visit ID: [id number] 61y, M Weight: 78.0 kg Height/Length: 68 in BMI: 26.2 ALLERGIES: Penicillin Start 19:04 05/05/2016 David Balderas R.N. Medication Administered: IV NS (SALINE), Dose: IV Fluids over 150 hour(s), Dispensed: 1000 mL bag, Site: #1 right forearm. Medication Ordered: IV NS : initial bolus none -, then 150 mL/hr for 4h (NOW); Routine. Given 19:04 05/05/2016 David Balderas R.N. Medication Administered: ATIVAN [IVP] (LORAZEPAM), Dose: 1 mg IVP over 2 minute(s), Site: #1 right forearm. Medication Ordered: Ativan IV 1 mg (NOW). Given 20:34 05/05/2016 David Balderas R.N. Medication Administered: DILAUDID [IVP] (HYDROMORPHONE HCL PF), Dose: 1 mg IVP, Site: #1 right forearm. Medication Ordered: Dilaudid IV 1 mg (NOW).
--- NOTE | 2016-05-06 10:23 | ED MED RECONCILIATION SUMMARY ---
Patient: REYNA RODAS Medication Reconciliation Report [facility] VisitID: [id number] [address] [place] [address] 61y, M Registration Date/Time: 05/05/2016 Weight: 78.0 kg Height/Length: 68 in. BMI: 26.2 ALLERGIES: Penicillin The patient's Home Medications are listed below: THE FOLLOWING MEDICATIONS NEED TO BE RECONCILED: Metoprolol Tartrate Oral OxyCODONE HCl Oral Pantoprazole Sodium Oral Venlafaxine HCl ER Oral The source(s) of the original Home Medication information: Not obtained. The following Medications were given to the patient in the Emergency Department: IV NS IV Fluids bolus 0, administered: 05/05/2016 7:04:00 PM Ativan [IVP] IVP 1 mg, administered: 05/05/2016 7:04:00 PM Dilaudid [IVP] IVP 1 mg, administered: 05/05/2016 8:34:00 PM The following Medications were prescribed to the patient: None.
--- NOTE | 2016-05-06 10:23 | ED MAR SUMMARY ---
..... Medication Administration Record [facility] [address] [place] [address] Patient: REYNA RODAS Visit ID: [id number] 61y, M Weight: 78.0 kg Height/Length: 68 in BMI: 26.2 ALLERGIES: Penicillin Start 19:04 05/05/2016 David Balderas R.N. Medication Administered: IV NS (SALINE), Dose: IV Fluids over 150 hour(s), Dispensed: 1000 mL bag, Site: #1 right forearm. Medication Ordered: IV NS : initial bolus none -, then 150 mL/hr for 4h (NOW); Routine. Given 19:04 05/05/2016 David Balderas R.N. Medication Administered: ATIVAN [IVP] (LORAZEPAM), Dose: 1 mg IVP over 2 minute(s), Site: #1 right forearm. Medication Ordered: Ativan IV 1 mg (NOW). Given 20:34 05/05/2016 David Balderas R.N. Medication Administered: DILAUDID [IVP] (HYDROMORPHONE HCL PF), Dose: 1 mg IVP, Site: #1 right forearm. Medication Ordered: Dilaudid IV 1 mg (NOW).
--- NOTE | 2016-05-06 14:45 | CONSULTATION REPORT ---
DATE OF CONSULTATION: 05/06/2016 CHIEF COMPLAINT: 1. Right lower quadrant abdominal pain HISTORY OF PRESENT ILLNESS: The patient is a 61-year-old male who, approximately 2 weeks ago, underwent emergent laparoscopic cholecystectomy and percutaneous needle biopsy of his liver by Dr. Freeman. He was seen postoperatively in the clinic and doing fine. Two days ago he presented to the emergency room with severe acute onset right lower quadrant abdominal pain. At that time, a CAT scan of his abdomen was essentially unremarkable. He did have, however, a white count of 15,000. The patient was discharged home, only to have the patient return the following day, again complaining of severe right lower quadrant abdominal pain. He was noted to have a white count of 15.8, hemoglobin, hematocrit 16.0 and 48.8 respectively. His SGOT was 58, his SGPT was 104, alkaline phosphatase 125. It should be noted that on 04/23/2016 when he was admitted, his SGOT was 47 and his SGPT was 89. During this hospitalization, in the emergency department his C-reactive protein was 1.6, slightly elevated. His lactic acid level was 1.3, normal, and procalcitonin level was less than 0.5. The patient was admitted to [facility] for observation. The following morning, repeat white count was 13,000. MEDICAL/SURGICAL HISTORY: Quite significant in that he is status post laparoscopic cholecystectomy recently, on 04/24/2016, with percutaneous needle biopsy. He had presented at that time of right upper quadrant epigastric abdominal pain. The patient also carries a diagnosis of hepatitis C, emphysema, alpha-1 antitrypsin deficiency, chronic hemochromatosis, COPD. He has a remote history of an SD. He has a remote history of appendectomy. The patient is a recovering alcoholic. MEDICATIONS: Medications at home include: 1. Metoprolol 25 mg b.i.d. 2. Oxycodone 5 mg p.r.n. 3. Pantoprazole 40 mg daily. 4. Venlafaxine 150 mg ER daily for depression. ALLERGIES: 1. PENICILLIN. SOCIAL HISTORY: The patient is . He states that he no longer drinks alcohol. The patient continues to smoke. Does not use recreational drugs, other than marijuana for pain or to increase his appetite. The patient is a recovering alcoholic; stated that he last used alcohol 24 years ago. FAMILY HISTORY: Mother with a history of hemochromatosis. Age and whereabouts of father unknown. The patient's daughters have autoimmune diseases as well. 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 He denies any recent chest pain, shortness of breath, orthopnea, claudication, lower extremity swelling, night sweats, fevers, chills, syncopal episodes. The remaining 12-point review of systems is negative. PHYSICAL EXAMINATION: VITAL SIGNS: Blood pressure is 131/91, pulse 82, respirations 18, temperature 97.7. GENERAL: The patient appears to be in mild discomfort. 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 He is awake and conversant, complaining of right lower quadrant abdominal pain. HEENT: Normocephalic, atraumatic. Pupils equal and reactive. No scleral icterus. External auditory canals clear. No nasal septal defect or discharge. Moist mucous membranes. NECK: Supple. No JVD, carotid bruit or adenopathy. LUNGS: Clear. No rales, rhonchi, or wheezing that I can appreciate. HEART: Regular rhythm. No murmurs that I can appreciate. ABDOMEN: Nondistended. Hypoactive bowel sounds. Trocar sites from previous cholecystectomy healed. No evidence of cellulitis. No evidence of Virk George or [place] sign. The patient is significantly tender in the right lower quadrant, firmness to palpation, with voluntary guarding. EXTREMITIES: Full range of motion, active/passively. No pretibial or ankle edema. SKIN: Warm and dry, with no evidence of peripheral cyanosis. LYMPHATICS: No cervical, supraclavicular, axillary, or groin adenopathy. NEUROLOGIC: The patient is grossly intact with no focal motor neurological deficits. IMPRESSION: 1. Right lower quadrant pain. The patient's CAT scan on 05/04/2016, compared to the CAT scan of 04/23/2016, is essentially unremarkable. He does have some minor free air in the area of the cholecystectomy. No evidence of inflammatory changes elsewhere in the abdomen. PLAN: Because the patient is tender and has significant white count, I have recommended to the patient that we proceed with diagnostic laparoscopy. Option is observation with continued present management. The patient has opted for the former. The procedure has been explained to the patient, including the possibility of bowel resection or open laparotomy. The patient understands and agrees to proceed. We will schedule him appropriately. All questions answered to his satisfaction.
--- NOTE | 2016-05-06 14:54 | OPERATIVE REPORT ---
DATE OF SURGERY: 05/06/2016 SURGEON: Corbin Hernandez III, MD [employer] ADMINISTRATOR: None. PREOPERATIVE DIAGNOSIS: 1. Right lower quadrant abdominal pain POSTOPERATIVE DIAGNOSES: 1. Right lower quadrant abdominal pain, etiology unclear 2. Adhesions, right lower quadrant PROCEDURES PERFORMED: 1. Diagnostic laparoscopy and lysis of right lower quadrant adhesions with mobilization of the cecum and terminal ileum 2. Puncture closure of right lower quadrant previous trocar site ANESTHESIA: General endotracheal. ESTIMATED BLOOD LOSS: Minimal. FLUIDS: 1400 mL lactated Ringers. URINE OUTPUT: 100 mL. INDICATIONS: A 61-year-old male 2 weeks prior had undergone laparoscopic cholecystectomy emergently, who presented to the emergency department 2 nights ago complaining of severe right lower quadrant abdominal pain. CAT scan was unremarkable. White count 15, 000. The next day, he presented again to the emergency room complaining or persistent right lower quadrant abdominal pain; white count was still 15,000. He was admitted to [facility]. He was tender in the right lower quadrant. All other labs, other exams , were all completely normal. White count had come down to 13,000. The patient elected to undergo a diagnostic laparoscopy rather than proceed with continued observation and hydration. SURGICAL FINDINGS: As expected, the patient was noted to have adhesions in the right lower quadrant secondary to his prior appendectomy. The cecum and ascending colon appeared grossly normal. The terminal ileum was adherent to the pelvic side wall ; however, upon mobilization, it appeared grossly normal. The small bowel was run from the terminal ileum to the ligament of Treitz and was completely normal. There was no evidence of a Meckel diverticulum. There were some adhesions to the trocar site in the right lower quadrant. Adhesions were taken down. A questionable fascial defect at this site. SURGICAL TECHNIQUE: The patient was brought to the operating room and placed in the dorsal supine position, where he underwent general endotracheal anesthesia by the anesthesiology department. After proper anesthesia had taken effect, a Lancaster catheter was placed to decompress the bladder. Orogastric tube was placed to decompress the stomach. The patient's abdomen was prepped using Betadine and draped in a sterile fashion. Through a previous infraumbilical incision, this site having been infiltrated using local anesthetic and incised, a Veress needle was placed in the abdominal cavity and, after ascertaining its appropriate position with suction irrigation, pneumoperitoneum obtained using CO2 insufflation to approximately 14-15 mmHg pressure. Once this pressure was reached, the Veress needle was removed and replaced with a 10 mm trocar. The trocar was removed, leaving the sleeve behind. Under direct visualization, a separate 10 mm trocar was placed in the left lateral mid abdomen, a separate 5 mm trocar was placed in the left lower quadrant. Each entered the abdominal cavity under direct visualization. The trocars were removed, leaving the sleeves behind, through which laparoscopic instrumentation was introduced into the abdominal cavity. There were adhesions in the right lower quadrant, which hid our exploration of that site. Therefore, these adhesions were taken down using a combination of blunt dissection and electrocautery. In the process, we were able to take adhesions down to the previous trocar sites. Adhesion takedown took approximately 50% of our surgical time. Once these adhesions were taken down, we were able to visualize the cecum. The cecum was mobilized slightly from lateral to medial, it appeared grossly normal and soft. The terminal ileum, which was adherent to the pelvic side wall, was rolled off using blunt dissection and inspected after mobilization. It appeared grossly normal. The small bowel was then run from the terminal ileum to the ligament of Treitz. It appeared grossly normal, with no evidence of inflammatory changes. No evidence of Crohn's disease and no evidence of a Meckel diverticulum. The pelvis was inspected. Rectum appeared grossly normal. The right upper quadrant from previous cholecystectomy site appeared grossly normal as well. 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 The most inferior trocar site on the right lateral abdominal wall was infiltrated using local anesthetic. A small incision made at the trocar site. A puncture closure device was then inserted to obliterate the trocar site to prevent any potential hernia with 0 Polysorb suture. Approximately 30 mL of 0.5% Marcaine with epinephrine was sprayed over the right and left dome of the liver for postoperative analgesia. The pneumoperitoneum was released and all trocars were removed from the abdominal cavity. All trocar sites were approximated using 4-0 subdermal Polysorb and Steri-Strips. The patient tolerated the procedure well, was extubated and transferred to the recovery room in stable condition. There were no intraoperative or anesthetic complications.
[2016-05-07 03:43] VITALS: BP 122/81
[2016-05-07 07:38] VITALS: BP 121/81
--- NOTE | 2016-05-07 08:22 | Progress Note ---
Subjective General Note Date: May 07, 2016 Admission Date: May 05, 2016 Hospital Day: 3 PCP: None Status: Inpatient Advanced Directive: FULL CODE Room: 210-A Brief History: The patient is a 61-year-old white male with a significant past medical history of cholelithiasis status post cholecystectomy, hemochromatosis, alpha 1 antitrypsin deficiency, gastroesophageal reflux, hepatitis C, depression, hypertension, who presented to [facility] emergency room on the day of admission secondary to complaints of abdominal pain. ER evaluation was consistent with right lower quadrant abdominal pain of unknown etiology. Secondary to the above , the patient was admitted by Willam Garcia M.D. for surgical consultation by Rafael Freeman M.D. for further evaluation and treatment. For other history present illness, past medical history, family history, social history, review of systems, and admission physical examination please see the patient's history and physical examination and ER visit note in the patient's medical record. Subjective: Status improved. Decrease abdominal pain. No nausea or vomiting. Patient requests: None Medications and Allergies Medications Current Medications Sig/Anisha Start time Last Medication Dose Route Stop Time Status Admin Dextrose/Sodium 1,000 ML ASDIRECTED 05/06 1345 AC 05/07 Chloride/Electrolyt IV 0534 Meperidine HCl See Dose Q1H PRN 05/06 1345 AC 05/07 Insts (1) IV 0530 Ondansetron HCl See Dose Q6H PRN 05/06 1345 AC Insts (2) IV Bupivacaine HCl/ 30 ML .STK-MED ONE 05/06 1251 CAN Epinephrine Bitart BILL 05/06 1252 Lidocaine/Epinephrine 20 ML .STK-MED ONE 05/06 1251 CAN BILL 05/06 1252 Nicotine 21 MG QAM 05/06 0200 AC 05/06 TOP 0256 Dose Instructions: (1)Meperidine HCl: 12.5 - 25 MG (2)Ondansetron HCl: 4 - 8 MG Allergies Coded Allergies: Penicillins (Unknown reaction - was to he is alergic while in [employer] 05/05/16) Physical Exam Vital Signs / I&Os Vital Signs Date Time Temp Pulse Resp B/P Pulse O2 O2 Flow FiO2 Ox Delivery Rate 05/07 0738 98.2 84 27 121/81 95 Nasal 2.0 Cannula 05/07 0506 82 27 95 2.0 05/07 0343 98.4 87 20 122/81 95 Nasal 2.0 Cannula 05/07 0338 80 20 98 2.0 05/07 0144 88 25 97 3.0 05/07 0030 Nasal 3.0 Cannula 05/07 0019 96 15 98 2.0 05/06 2233 97.9 88 20 146/69 92 Nasal 3.0 Cannula 05/06 2159 85 22 97 3.0 05/06 2013 88 32 96 3.0 05/06 1929 92 05/06 1818 73 17 96 05/06 1701 78 20 126/76 99 Nasal 3.0 Cannula 05/06 1621 Nasal 3.0 Cannula 05/06 1601 79 22 130/67 97 Nasal 3.0 Cannula 05/06 1554 95 16 98 2.0 05/06 1538 75 30 135/67 96 Nasal 3.0 Cannula 05/06 1516 76 22 133/70 96 Nasal 3.0 Cannula 05/06 1503 76 26 144/72 93 Room Air 3.0 05/06 1443 98.2 81 38 152/80 92 Nasal 3.0 Cannula 05/06 1428 77 30 159/84 95 05/06 1420 76 25 161/89 96 05/06 1410 91 26 167/80 96 05/06 1400 77 25 172/86 95 05/06 1350 81 26 182/93 100 05/06 1345 98.1 87 28 187/109 100 Mask 11.0 05/06 1137 97.7 82 18 131/91 96 Room Air 0.0 05/06 1054 71 17 96 05/06 0937 0.0 05/06 0853 76 16 93 I&O 05/07 0000 05/06 1600 05/06 0800 Intake Total 994 1966 734 Output Total 1525 575 350 Balance -531 1391 384 General Appearance Alert, Oriented X3, Cooperative, No acute distress Lungs Clear to auscultation Cardiovascular Regular rate and rhythm, Normal S1 and S2 Abdomen Normal bowel sounds, Soft, mild lower quadrant tenderness Extremities No cyanosis, No clubbing Neurological Grossly normal Psych/Mental Status Mental status normal, Mood normal LAB Results Laboratory Tests 05/07 05/07 0600 0500 Chemistry Plasma Sodium (136 - 145 mmol/L) 137 Plasma Potassium (3.5 - 5.1 mmol/L) 4.5 Plasma Chloride (98 - 107 mmol/L) 103 CO2 (Enzymatic) (21 - 32 mmol/L) 26 BUN (7 - 18 mg/dL) Pending Creatinine (0.6 - 1.3 mg/dL) 0.8 Est GFR ( Amer) (mL/min) >60 Est GFR (Non-Af Amer) (mL/min) >60 Glucose (70 - 110 mg/dL) 135 Plasma Calcium (8.5 - 10.1 mg/dL) 8.2 Total Bilirubin (0.0 - 1.0 mg/dL) 0.6 AST (15 - 37 U/L) 53 ALT (12 - 78 U/L) 105 Alkaline Phosphatase (46 - 116 U/L) 140 Total Protein (6.4 - 8.2 g/dL) 6.6 Albumin (3.3 - 5.0 g/dL) 2.9 Hematology WBC (4.5 - 11.5 K/uL) 11.8 Cancelled RBC (4.50 - 5.90 M/uL) 4.58 Cancelled Hgb (13.5 - 17.5 gm/dL) 13.3 Cancelled Hct (41.0 - 53.0 %) 41.4 Cancelled MCV (80 - 100 fL) 91 Cancelled MCH (26 - 34 pg) 29 Cancelled RDW (11.6 - 14.8 %) 14.9 Cancelled Neut % (Auto) (50 - 75 %) Pending Lymph % (Auto) (25 - 40 %) Pending [place] % (Auto) (3 - 14 %) Pending Band Neutrophils % (0 - 8 %) Pending Plt Count, EDTA (150 - 400 K/uL) 262 Cancelled PUBS MCHC (31 - 37 g/dL) 32 Cancelled Assessment and Plan Problem List 1. Acute cholecystitis Plan -Status post laparoscopic cholecystectomy -Follow up general surgery 2. Chronic liver disease Plan -Stable -Outpatient follow-up with PCP/gastroenterology 3. Abdominal pain Plan -Etiology unknown -Status post laparoscopy -No identifiable source for abdominal pain -Follow up with general surgery 4. Hypertension Status Chronic Onset Date Unknown Plan -Blood pressure well controlled -BP this a.m. 121/81 mmHg -Monitor 5. Hepatitis C Status Chronic Onset Date Unknown Plan -No further evaluation at this time -Check previous workup and therapeutic intervention prior to discharge -Referral to GI for treatment if no previous evaluation/treatment undertaken 6. Gastroesophageal reflux Status Chronic Onset Date Unknown Plan -Continue PPI -Monitor Current status: Fair, improved Anticipated discharge date: Anticipated discharge in a.m. Anticipated discharge placement: Home Patient care time: Time spent in chart review, patient interview, physical exam, CPOE, and care documentation: 25 minutes Visit to patient today: 1 Complexity of care: Moderate E&M Codes Rounding: Inpt-Moderate/[id number]
[2016-05-07 11:18] VITALS: BP 147/78
[2016-05-07 14:26] VITALS: BP 126/87
[2016-05-07 17:57] VITALS: BP 123/90
[2016-05-07 23:04] VITALS: BP 128/69
[2016-05-08 03:14] VITALS: BP 133/95
[2016-05-08 06:27] VITALS: BP 129/86
[2016-05-08 10:08] VITALS: BP 130/95
--- NOTE | 2016-05-08 13:35 | Provider's Discharge Care Plan ---
Problem, Goal, Plan Problem List 1. Abdominal pain Instructions: follow up with surgical clinic in 1-2 weeks, take diet slow and introduce new foods slowly 2. Gastroesophageal reflux Instructions: - take medications as prescribed
--- NOTE | 2016-05-19 09:58 | Discharge Summary ---
Discharge Summary Report Admit Date 05/05/16 Discharge Date 05/08/16 Admission Diagnosis abdominal pain Discharge Diagnosis post operative abdominal pain Brief History The patient is a 61-year-old male who has a history of hepatitis C, hemochromatosis, alpha-1 antitrypsin deficiency, who had been doing well until probably 2 weeks ago when he developed problems with his gallbladder. He had a cholecystectomy performed here approximately 10 days ago without complication and was discharged the following day. He was recovering well until 2 days ago when he developed severe right lower quadrant abdominal pain. He was seen at the [facility] Emergency Department and where a CAT scan was unrevealing and sent home. Today he had seen his equity analyst and afterwards at home had such severe abdominal pain again in the right lower quadrant that he passed out. He was brought to the emergency department. Workup there revealed a white blood count of 15,000 and a through position abdomen that was benign. A CAT scan was not repeated. He is admitted at this time for observation for severe recalcitrant right lower quadrant pain post-cholecystectomy. Hospital Course Pt was kept npo and given pain control. Patient had no complaints and slowly regained function of his bowel and did not require any further pain management. Patient is currently stable and ready for discharge once he is able to tolerate a diet General Appearance Alert, Oriented X3, No acute distress Lungs Normal air movement Abdomen Soft, No tenderness, No masses Discharge Instructions/Meds - take meds as prescribed - slowly advance your diet as explained to you before - follow up in the surgical office in 1-2 weeks
== END 2016-05-08 14:15 | disposition home or self-care (01) ==
LOC: ED SRH 18:00 → TRANS SRH 21:39 → ACUTE2 SRH 21:39
PROVIDERS: Specialist; ADMIT Emergency Medicine
PROC: 0JQ80ZZ Repair Abdomen Subcutaneous Tissue and Fascia, Open Approach (ICD-10-PCS; principal; 2016-05-06 12:00)
PROC: 0DNH4ZZ Release Cecum, Percutaneous Endoscopic Approach (ICD-10-PCS; principal; 2016-05-06 12:00)
PROC: 0DNB4ZZ Release Ileum, Percutaneous Endoscopic Approach (ICD-10-PCS; principal; 2016-05-06 12:00)
DX: G89.18 Other acute postprocedural pain (principal); R10.9 Unspecified abdominal pain; K66.0 Peritoneal adhesions (postprocedural) (postinfection); T81.32XA Disruption of internal operation (surgical) wound, not elsewhere classified, initial encounter; E88.01 Alpha-1-antitrypsin deficiency; K74.69 Other cirrhosis of liver; B18.2 Chronic viral hepatitis C; E83.119 Hemochromatosis, unspecified; I10 Essential (primary) hypertension; K21.9 Gastro-esophageal reflux disease without esophagitis; F32.9 Major depressive disorder, single episode, unspecified
CPT/HCPCS: 29229; 29230; 29259; 29264; 50002; 60001; 70002; 80102; 80212; 80248; 80298; 82794; 82897; 83587; 83919; 83982; 84038; 84321; 85241; 90074; 90100; 91295; 91585; 92031; 92235; 92530; 93004; 95059; 95061

== ENCOUNTER 2016-10-06 00:13 | Emergency (ER) | payer OTHER ==
[~2016-10-06 00:13] MED LIST changes: +DOCUSATE SODIU100 MG PO
--- NOTE | 2016-10-06 03:39 | ED ORDER SUMMARY ---
..... Patient: REYNA RODAS OrderSheet [facility] VisitID: [id number] [place] [address] 61y, M Registration Date/Time: 10/06/2016 ORDER SHEET Weight: 78.0 kg (stated) Allergies: Penicillin GENERAL ORDERS: EKG - ER Stat (00:58 10/06/2016 Maria Luz Sanabria per protocol) (1:05 RKaruga) CT Head wo Cont Urgent (02:19 10/06/2016 Dayan VIEIRA) (Ack 2:23 CHagerty ER Credit Control Manager) (3:34 CHagerty ER Credit Control Manager) CT Cervical Spine wo Cont Urgent (02:20 10/06/2016 Dayan VIEIRA) (Ack 2:23 CHagerty ER Credit Control Manager) (3:34 CHagerty ER Credit Control Manager) MEDICATION ORDERS: Dilaudid IM 1 mg (HIGH ALERT MEDICATION, NOW) (02:20 10/06/2016 Dayan VIEIRA) (2:28 JDrea R.N.) Zofran ODT PO 4 mg (NOW) (02:20 10/06/2016 Dayan VIEIRA) (2:27 Maria Luz Zaman.N.) IV FLUIDS: ORDER SHEET NOTES: [Electronically signed by Kemal Shepard R.N. (03:55 10/06/2016)] [Electronically signed by Farhan Santiago MD (15:56 10/07/2016)] [Electronically locked/signed by Kemal Shepard R.N. (03:55 10/06/2016)]
--- NOTE | 2016-10-06 03:39 | ED CLINICAL REPORT ---
Clinical Report - Physicians/Mid Levels Formerly [facility] [address] [address] 10/06/2016 0:13 Patient: REYNA RODAS Time Seen: 01:11. Arrived- By private vehicle. Historian- patient. HISTORY OF PRESENT ILLNESS Location of injuries- head and neck. Chief Complaint: INJURY TO HEAD. The injury occurred yesterday. Occurred at a friend's house. The patient sustained a blow. Fell. The patient complains of severe pain. The patient sustained a blow to the head, complains of neck pain and was dazed. No loss of consciousness. (patient reports that he was at a friend's house, he struck his head on a rafter which caused him to lose his balance and he fell off of the porch. He denies loss of consciousness but says that he's been dazed since then). REVIEW OF SYSTEMS No chills, fever, calf pain, chest pain or cough. No difficulty breathing, pedal edema, palpitations, abdominal pain or black stools. No bloody stools, constipation, diarrhea, nausea or vomiting. No urinary problems. The patient has experienced sweats. All systems otherwise negative, except as recorded above. PAST HISTORY Tetanus immunization status is up-to-date. Problems: Constipation. Cholecystitis. Hepatitis C. Cholelithiasis. Chest Wall Pain. Acute Myocardial Infarction. Hepatitis. Depression. Gastroesophageal Reflux Disease. Abdominal Pain. Gallstone(s). Dental Abscess. Aat, liver disease . Sprain. Hemochromatosis. Additional Surgeries: Appendectomy. Cholecystectomy. Liver Biopsy. Medications: Metoprolol Tartrate Oral (pt usure of dose ). OxyCODONE HCl Oral, as needed (pt unsure of dose ). Pantoprazole Sodium Oral, daily (pt unsure of dose). Venlafaxine HCl ER Oral 175mg, daily. Allergies: Penicillin. SOCIAL HISTORY Current every day light tobacco smoker (cigarette)- less than 1/2 a pack per day. History of heavy drug use: marijuana. He lives with spouse. FAMILY HISTORY Heart disease in first-degree relative (mother). mother with hemachromatosis. ADDITIONAL NOTES The nursing notes have been reviewed. PHYSICAL EXAM Vital Signs: 10/06/2016 00:45 BP: 133/80. HR: 86. RR: 17. O2 saturation: 98%. Temp: 97.8 F. Pain level now: 8/10. Have been reviewed. Appearance: Alert. Head: Vertex: small abrasion. Eyes: Pupils equal, round and reactive to light. Neck: Muscle spasm of the neck. No vertebral tenderness. CVS: Heart sounds normal. Pulses normal. Respiratory: Breath sounds normal. Abdomen: Soft and nontender. No organomegaly. Back: No tenderness. ROM normal. No vertebral point tenderness. Skin: Skin warm and dry. Extremities: Normal inspection. Pelvis stable. Neuro: Mood/affect normal. No motor deficit. Normal gait. No sensory deficit. LABS, X-RAYS, AND EKG EKG: Normal EKG. Rate: 75. EKG unchanged when compared with prior EKG. (04 May 2016). CT C-Spine: (no evidence of acute traumatic injury. This is per the preliminary report of Dr. Garrick Pacheco M.D. of Administrative Sales Assistant radiology.). The study was interpreted by the radiologist and contemporaneously by me. CT Head: (no acute intracranial abnormality. This is per Dr. Garrick Pacheco M.D. of Administrative Sales Assistant radiology). The study was interpreted by the radiologist and contemporaneously by me. PROGRESS AND PROCEDURES Course of Care: Patient is stable. Patient/family counseled. Old medical records reviewed. Disposition: Discharged. Condition: stable. CLINICAL IMPRESSION Minor closed head injury. No loss of consciousness. Single abrasion to the scalp. Acute cervical strain. Fall. INSTRUCTIONS Apply ice for 20 minutes four times a day until better. Don't apply ice directly to skin and don't use while asleep. Protect wound and keep wound area clean. Change dressing twice daily. You may wash wounds briefly, then dry. Apply neosporin twice daily. No driving or operating machinery while taking medication. Sedative medication was given during your visit. Warnings: HEAD INJURY PRECAUTIONS: An observer must check on the patient every 2 hours for the next 24 hours to confirm that the patient responds as expected, is not confused, has no new weakness or numbness, and has no other problems. GENERAL WARNINGS: Return or contact your physician immediately if your condition worsens or changes unexpectedly, if not improving as expected, or if other problems arise. Your Current Medications: CONTINUE TAKING THE FOLLOWING MEDICATIONS: Metoprolol Tartrate Oral : pt usure of dose. OxyCODONE HCl Oral : prn, pt unsure of dose. Pantoprazole Sodium Oral : daily, pt unsure of dose. Venlafaxine HCl ER Oral : 175mg daily. Follow-up: Follow up with your doctor PIYUSH TRINIDAD in two days. Call for the next available appointment. Understanding of the discharge instructions verbalized by patient and family. (Electronically signed by Farhan Santiago MD 10/07/2016 15:56)
--- NOTE | 2016-10-06 03:39 | ED NURSING NOTES ---
Clinical Report - Nurses [place] [address] [place] [address] 10/06/2016 0:13 [id number] Triage time 00:45. Acuity: LEVEL 3. Chief Complaint: FALL (fell about 8 '). 00:53. Alert. SEPSIS SCREEN: Sepsis Screen. Negative (no infection suspected/documented). JORGE COMA SCORE: Jorge Coma Scale: 15- eyes open spontaneously (4); best verbal response- oriented x 4 (5); best motor response- obeys commands (6). --00:53 Kemal Shepard R.N. 00:45 10/06/16. BP: 133/80. HR: 86. RR: 17. O2 saturation: 98%. Temp: 97.8 F (oral). Pain level now: 11/20. --00:53 Kemal Shepard R.N. Weight: 78 kg stated. Height/Length: 68 inches Per Patient. BMI: 26.2. --00:47 Kemal Shepard R.N. Medications Metoprolol Tartrate Oral (pt usure of dose ). OxyCODONE HCl Oral, as needed (pt unsure of dose ). Pantoprazole Sodium Oral, daily (pt unsure of dose). Venlafaxine HCl ER Oral 175mg, daily. --00:48 Kemal Shepard R.N. Allergies Penicillin. --00:48 Kemal Shepard R.N. Medication/allergy information source: the patient. --00:53 Kemal Shepard R.N. History Arrived by private vehicle. Historian: patient. Accompanied by family. Primary physician (Luis). Location of injuries: vertex and neck. This occurred (1100 yesterday AM). Occurred ([facility]). ( Patient reports falling yesterday AM about 1100 drove home from [facility] then about 2230 last night began to get dizzy and started to get neck pain). He has had neck pain. No loss of consciousness. No back pain. Trauma activation: Pre-hospital notification of patient arrival was not received. PAST MEDICAL HX: Tetanus status: up-to-date. Immunizations: up-to-date. SOCIAL HX: Current every day light tobacco smoker- less than 1/2 a pack per day. History of drug use: marijuana. (daily). No alcohol use. No infectious disease exposure. ABUSE ASSESSMENT: No report of abuse. FALL RISK ASSESSMENT: Fall risk assessment completed. No fall risk identified. NUTRITIONAL RISK ASSESSMENT: The nutritional risk assessment revealed no deficiencies. FUNCTIONAL ASSESSMENT: Functional assessment: no impairments noted. LEARNING NEEDS ASSESSMENT: The learning needs assessment revealed no barriers. SKIN INTEGRITY ASSESSMENT: Skin integrity risk assessment completed. No skin integrity risk identified. --00:53 Kemal Shepard R.N. PROBLEMS: Constipation. Cholecystitis. Cholelithiasis. Acute Myocardial Infarction. Hepatitis. Depression. Gastroesophageal Reflux Disease. Gallstone(s). Hemochromatosis. --00:49 Kemal Shepard R.N. ADDITIONAL SURGERIES: Appendectomy. Cholecystectomy. Liver Biopsy. --00:49 Kemal Shepard R.N. Interventions ID band on patient. To treatment room. --00:53 Kemal Shepard R.N. PHYSICAL ASSESSMENT 00:54. To room via wheelchair. Patient gowned. GENERAL / NEURO / PSYCH: Alert. Oriented X 4. HEENT: Vertex: superficial 1.0 cm laceration with controlled bleeding. Head non-tender. RESPIRATORY: Respirations not labored. EXTREMITIES: Neuro-vascular status intact to the extremity. SKIN: Skin is warm and dry. --00:54 Kemal Shepard R.N. NURSING PROGRESS NOTES 00:55. Two patient identifiers checked. Call light placed in reach. Bed placed in lowest position. Brakes of bed on. Patient ready for evaluation- chart flagged. --00:55 Kemal Shepard R.N. 02:25 10/06/2016 Zofran ODT (Ondansetron) PO 4 mg given. Allergies verified and confirmed 5 rights. --02:27 Kemal Shepard R.N. 02:26 10/06/2016 Dilaudid (HYDROmorphone HCl PF) IM 1 mg given. Given in the left ventral gluteus. Allergies verified, confirmed 5 rights and sedative warning given to the patient. --02:28 Kemal Shepard R.N. 02:41. Patient transported to CT by stretcher with tech. --03:12 Kemal Shepard R.N. 02:54. Patient returned from CT by stretcher with tech. --03:12 Kemal Shepard R.N. EKG time: (1:04 AM). EKG was performed by a tech and shown to the ED physician. --03:13 Elda Paris 03:50. The patient is calm and resting quietly. GENERAL / NEURO / PSYCH: Alert. Oriented X 4. RESPIRATORY: No respiratory distress. EXTREMITIES: Neuro-vascular status intact to the extremity. --03:55 Kemal Shepard R.N. DISPOSITION / DISCHARGE Departure time: 03:53. Condition at departure: stable. No learning barriers present. Discharge instructions provided and reviewed with the patient. Patient verbalized understanding. Written instructions provided in Nepalese. The patient was discharged home and accompanied by family. He left the Emergency Department ambulatory and via private vehicle. Family member driving. FALL RISK ASSESSMENT: Fall risk assessment completed. No fall risk identified. --03:54 Kemal Shepard R.N. 03:50 10/06/16. BP: 135/80. HR: 71. RR: 16. O2 saturation: 99%. Pain level now: 04/22. --03:54 Kemal Shepard R.N. Locked/Released at 10/06/2016 3:55 by Kemal Shepard R.N.
--- NOTE | 2016-10-06 03:39 | ED ORDER SUMMARY ---
..... Patient: REYNA RODAS OrderSheet [facility] VisitID: [id number] [place] [address] 61y, M Registration Date/Time: 10/06/2016 ORDER SHEET Weight: 78.0 kg (stated) Allergies: Penicillin GENERAL ORDERS: EKG - ER Stat (00:58 10/06/2016 Maria Luz Sanabria per protocol) (1:05 RKaruga) CT Head wo Cont Urgent (02:19 10/06/2016 Dayan VIEIRA) (Ack 2:23 [facility] [employer]) (3:34 [facility] [employer] [facility] [facility]) CT Cervical Spine wo Cont Urgent (02:20 10/06/2016 Dayan VIEIRA) (Ack 2:23 [facility] [employer]) (3:34 [facility] [employer]) MEDICATION ORDERS: Dilaudid IM 1 mg (HIGH ALERT MEDICATION, NOW) (02:20 10/06/2016 Dayan VIEIRA) (2:28 JDrea R.N.) Zofran ODT PO 4 mg (NOW) (02:20 10/06/2016 Dayan VIEIRA) (2:27 Maria Luz Zaman.N.) IV FLUIDS: ORDER SHEET NOTES: [Electronically signed by Kemal Shepard R.N. (03:55 10/06/2016)] [Electronically signed by Farhan Santiago MD (15:56 10/07/2016)] [Electronically locked/signed by Kemal Shepard R.N. (03:55 10/06/2016)]
--- NOTE | 2016-10-06 03:39 | ED NURSING NOTES ---
Clinical Report - Nurses [place] [address] [place] [address] 10/06/2016 0:13 [id number] Triage time 00:45. Acuity: LEVEL 3. Chief Complaint: FALL (fell about 8 '). 00:53. Alert. SEPSIS SCREEN: Sepsis Screen. Negative (no infection suspected/documented). JORGE COMA SCORE: Jorge Coma Scale: 15- eyes open spontaneously (4); best verbal response- oriented x 4 (5); best motor response- obeys commands (6). --00:53 Kemal Shepard R.N. 00:45 10/06/16. BP: 133/80. HR: 86. RR: 17. O2 saturation: 98%. Temp: 97.8 F (oral). Pain level now: 11/20. --00:53 Kemal Shepard R.N. Weight: 78 kg stated. Height/Length: 68 inches Per Patient. BMI: 26.2. --00:47 Kemal Shepard R.N. Medications Metoprolol Tartrate Oral (pt usure of dose ). OxyCODONE HCl Oral, as needed (pt unsure of dose ). Pantoprazole Sodium Oral, daily (pt unsure of dose). Venlafaxine HCl ER Oral 175mg, daily. --00:48 Kemal Shepard R.N. Allergies Penicillin. --00:48 Kemal Shepard R.N. Medication/allergy information source: the patient. --00:53 Kemal Shepard R.N. History Arrived by private vehicle. Historian: patient. Accompanied by family. Primary physician (Luis). Location of injuries: vertex and neck. This occurred (1100 yesterday AM). Occurred ([facility]). ( Patient reports falling yesterday AM about 1100 drove home from [facility] then about 2230 last night began to get dizzy and started to get neck pain). He has had neck pain. No loss of consciousness. No back pain. Trauma activation: Pre-hospital notification of patient arrival was not received. PAST MEDICAL HX: Tetanus status: up-to-date. Immunizations: up-to-date. SOCIAL HX: Current every day light tobacco smoker- less than 1/2 a pack per day. History of drug use: marijuana. (daily). No alcohol use. No infectious disease exposure. ABUSE ASSESSMENT: No report of abuse. FALL RISK ASSESSMENT: Fall risk assessment completed. No fall risk identified. NUTRITIONAL RISK ASSESSMENT: The nutritional risk assessment revealed no deficiencies. FUNCTIONAL ASSESSMENT: Functional assessment: no impairments noted. LEARNING NEEDS ASSESSMENT: The learning needs assessment revealed no barriers. SKIN INTEGRITY ASSESSMENT: Skin integrity risk assessment completed. No skin integrity risk identified. --00:53 Kemal Shepard R.N. PROBLEMS: Constipation. Cholecystitis. Cholelithiasis. Acute Myocardial Infarction. Hepatitis. Depression. Gastroesophageal Reflux Disease. Gallstone(s). Hemochromatosis. --00:49 Kemal Shepard R.N. ADDITIONAL SURGERIES: Appendectomy. Cholecystectomy. Liver Biopsy. --00:49 Kemal Shepard R.N. Interventions ID band on patient. To treatment room. --00:53 Kemal Shepard R.N. PHYSICAL ASSESSMENT 00:54. To room via wheelchair. Patient gowned. GENERAL / NEURO / PSYCH: Alert. Oriented X 4. HEENT: Vertex: superficial 1.0 cm laceration with controlled bleeding. Head non-tender. RESPIRATORY: Respirations not labored. EXTREMITIES: Neuro-vascular status intact to the extremity. SKIN: Skin is warm and dry. --00:54 Kemal Shepard R.N. NURSING PROGRESS NOTES 00:55. Two patient identifiers checked. Call light placed in reach. Bed placed in lowest position. Brakes of bed on. Patient ready for evaluation- chart flagged. --00:55 Kemal Shepard R.N. 02:25 10/06/2016 Zofran ODT (Ondansetron) PO 4 mg given. Allergies verified and confirmed 5 rights. --02:27 Kemal Shepard R.N. 02:26 10/06/2016 Dilaudid (HYDROmorphone HCl PF) IM 1 mg given. Given in the left ventral gluteus. Allergies verified, confirmed 5 rights and sedative warning given to the patient. --02:28 Kemal Shepard R.N. 02:41. Patient transported to CT by stretcher with tech. --03:12 Kemal Shepard R.N. 02:54. Patient returned from CT by stretcher with tech. --03:12 Kemal Shepard R.N. EKG time: (1:04 AM). EKG was performed by a tech and shown to the ED physician. --03:13 Elda Paris 03:50. The patient is calm and resting quietly. GENERAL / NEURO / PSYCH: Alert. Oriented X 4. RESPIRATORY: No respiratory distress. EXTREMITIES: Neuro-vascular status intact to the extremity. --03:55 Kemal Shepard R.N. DISPOSITION / DISCHARGE Departure time: 03:53. Condition at departure: stable. No learning barriers present. Discharge instructions provided and reviewed with the patient. Patient verbalized understanding. Written instructions provided in Chinese. The patient was discharged home and accompanied by family. He left the Emergency Department ambulatory and via private vehicle. Family member driving. FALL RISK ASSESSMENT: Fall risk assessment completed. No fall risk identified. --03:54 Kemal Shepard R.N. 03:50 10/06/16. BP: 135/80. HR: 71. RR: 16. O2 saturation: 99%. Pain level now: 04/22. --03:54 Kemal Shepard R.N. Locked/Released at 10/06/2016 3:55 by Kemal Shepard R.N.
--- NOTE | 2016-10-06 08:30 | DIAGNOSTIC IMAGING REPORT ---
PROCEDURE: CT HEAD WITHOUT CONTRAST INDICATION: TRAUMA/INJURY TECHNIQUE: Axial CT images were acquired through the head. Coronal and sagittal reformations were created. COMPARISON: None. FINDINGS: No intracranial hemorrhage or extraaxial fluid collections. Ventricles are normal in size, shape and position. There is no mass, mass effect or midline shift. The jain-white matter differentiation is normal. There is no edema. The calvarium is intact. There is extensive mucosal thickening throughout the right maxillary sinus and an acute air fluid level with partial opacification of the left maxillary sinus. Patchy opacification of ethmoid air cells. Small amount of mucosal thickening in the left sphenoid sinus. Minor thickening of the right frontal sinus. Mastoid cavities are aerated. The extracranial soft tissues and orbits are normal. IMPRESSION: 1. No CT evidence of acute intracranial process. 2. Moderate sinus disease with acute left maxillary sinusitis. 3. Preliminary report by Dr. Garrick Pacheco of [facility] radiology. All CT scans at this facility use dose modulation, iterative reconstruction, and/or weight-based dosing when appropriate to reduce radiation dose to as low as reasonably achievable.
--- NOTE | 2016-10-06 08:35 | DIAGNOSTIC IMAGING REPORT ---
PROCEDURE: CT CERVICAL SPINE W/O CONTRAST INDICATION: TRAUMA/INJURY TECHNIQUE: Axial CT images were obtained through the cervical spine. Coronal and sagittal reformations were created. No comparison. COMPARISON: None. FINDINGS: The craniocervical junction is intact. The cervical vertebral bodies are normal in height without evidence of fracture. Degenerative changes at the atlantodental interval. Trace L4-5 retrolisthesis. Mild anterior and posterior endplate spurring at C4-5, C5-6, and C6-7. Mild posterior disc height loss C4-5 and minor disc height loss elsewhere. The central canal is patent. No spinal stenosis or neural foraminal narrowing. No prevertebral or paravertebral soft-tissue swelling or mass. Lung apices demonstrate mild diffuse ground-glass opacity, septal thickening, and occasional paraseptal emphysematous changes. IMPRESSION: 1. No CT evidence of acute cervical spine injury. 2. Mild degenerative changes. 3. Mild emphysematous and mild inflammatory changes at the lung apices. Correlate clinically. 4. Preliminary report by [facility] All CT scans at this facility use dose modulation, iterative reconstruction, and/or weight-based dosing when appropriate to reduce radiation dose to as low as reasonably achievable.
--- NOTE | 2016-10-07 15:58 | ED MAR SUMMARY ---
..... Medication Administration Record [facility] [address] [place] [address] Patient: REYNA RODAS Visit ID: [id number] 61y, M Weight: 78.0 kg Height/Length: 68 in BMI: 26.2 ALLERGIES: Penicillin Given 02:10/06/2016 Kemal Shepard, R.N. Medication Administered: ZOFRAN ODT [PO] (ONDANSETRON), Dose: 4 mg PO. Medication Ordered: Zofran ODT PO 4 mg (NOW). Given 02:10/06/2016 Kemal Shepard, R.N. Medication Administered: DILAUDID [IM] (HYDROMORPHONE HCL PF), Dose: 1 mg IM. Medication Ordered: Dilaudid IM 1 mg (HIGH ALERT MEDICATION, NOW).
--- NOTE | 2016-10-07 15:58 | ED MED RECONCILIATION SUMMARY ---
Patient: REYNA RODAS Medication Reconciliation Report [facility] VisitID: [id number] [address] [place] [address] 61y, M Registration Date/Time: 10/06/2016 Weight: 78.0 kg Height/Length: 68 in. BMI: 26.2 ALLERGIES: Penicillin The patient's Home Medications are listed below: CONTINUE TAKING THE FOLLOWING MEDICATIONS: Metoprolol Tartrate Oral, pt usure of dose OxyCODONE HCl Oral, pt unsure of dose Pantoprazole Sodium Oral, daily, pt unsure of dose Venlafaxine HCl ER Oral 175mg, daily The source(s) of the original Home Medication information: patient The following Medications were given to the patient in the Emergency Department: Zofran ODT [PO] PO 4 mg, administered: 10/06/2016 2:25:00 AM Dilaudid [IM] IM 1 mg, administered: 10/06/2016 2:26:00 AM The following Medications were prescribed to the patient: None.
--- NOTE | 2016-10-07 15:58 | ED DISCHARGE INSTRUCTIONS ---
Patient: REYNA RODAS General Instructions [facility] VisitID: [id number] [place] [address] 61y, M Registration Date/Time: 10/06/2016 Minor closed head injury. No loss of consciousness. Single abrasion to the scalp. Acute cervical strain. Fall. INSTRUCTIONS Apply ice for 20 minutes four times a day until better. Don't apply ice directly to skin and don't use while asleep. Protect wound and keep wound area clean. Change dressing twice daily. You may wash wounds briefly, then dry. Apply neosporin twice daily. No driving or operating machinery while taking medication. Sedative medication was given during your visit. Warnings: HEAD INJURY PRECAUTIONS: An observer must check on the patient every 2 hours for the next 24 hours to confirm that the patient responds as expected, is not confused, has no new weakness or numbness, and has no other problems. GENERAL WARNINGS: Return or contact your physician immediately if your condition worsens or changes unexpectedly, if not improving as expected, or if other problems arise. Your Current Medications: CONTINUE TAKING THE FOLLOWING MEDICATIONS: Metoprolol Tartrate Oral : pt usure of dose. OxyCODONE HCl Oral : prn, pt unsure of dose. Pantoprazole Sodium Oral : daily, pt unsure of dose. Venlafaxine HCl ER Oral : 175mg daily. Follow-up: Follow up with your doctor PIYUSH TRINIDAD in two days. Call for the next available appointment. Understanding of the discharge instructions verbalized by patient and family. ADDITIONAL INFORMATION Head Injury With Wake-Up (Adult) You have had a head injury. It does not appear serious at this time. Symptoms of a more serious problem (concussion, bruising, or bleeding in the brain) may appear later. Therefore, watch for the WARNING SIGNS listed below. Home Care: During the next 24 hours someone must stay with you. This person should wake you every 2 hours to check for the signs below. If you have swelling of the face or scalp, apply an ice pack (ice cubes in a plastic bag, wrapped in a towel) for 20 minutes every 1-2 hours until the swelling starts to go down. Do not use aspirin or ibuprofen (Motrin, Advil) after a head injury. You may use acetaminophen (Tylenol) to control pain, unless another pain medicine was prescribed. [NOTE: If you have chronic liver or kidney disease or ever had a stomach ulcer or GI bleeding, talk with your doctor before using these medicines.] For the next 24 hours: Do not take alcohol, sedatives, or medicines that make you sleepy. Do not drive or operate machinery. Avoid strenuous activities. No lifting or straining. If you have had any symptoms of a concussion today (nausea, vomiting, dizziness, confusion, headache, memory loss, or you were knocked out), do not return to sports or any activity that could result in another head injury until all symptoms are gone and you have been cleared by your doctor. A second head injury before fully recovering from the first one can lead to serious brain injury. Follow Up with your doctor if symptoms are not improving after 24 hours, or as directed. [NOTE: A radiologist will review any X-rays or CT scans that were taken. We will notify you of any new findings that may affect your care.] Get Prompt Medical Attention if any of the following WARNING SIGNS occur: Repeated vomiting Severe or worsening headache or dizziness Unusual drowsiness, or unable to awaken as usual Confusion or change in behavior or speech, memory loss, blurred vision Convulsion (seizure) Increasing scalp or face swelling Redness, warmth or pus from the swollen area Fluid drainage or bleeding from the nose or ears Mechanical Fall You have had a fall today. It appears that the cause is mechanical. That means that you slipped, tripped or lost your balance. If your fall had been due to fainting or a seizure, further tests would be required. Home Care: Rest today and resume your normal activities when you are feeling back to normal. If you were injured during the fall, follow the advice from your doctor regarding care of your injury. You may use acetaminophen (Tylenol) or ibuprofen (Motrin, Advil) to control pain, unless another pain medicine was prescribed. [NOTE: If you have chronic liver or kidney disease or ever had a stomach ulcer or GI bleeding, talk with your doctor before using these medicines.] Fall Prevention: Was there anything that caused your fall that can be fixed, removed, or replaced? Make your home safe by keeping walkways clear of objects you may trip over. Use non-slip pads under rugs. Do not walk in poorly lit areas. Do not stand on chairs or wobbly ladders. Use caution when reaching overhead or looking upward. This position can cause a loss of balance. Be sure your shoes fit properly, have non-slip bottoms and are in good condition. Be cautious when going up and down curbs, and walking on uneven sidewalks. If your balance is poor, consider using a cane or walker. Stay as active as you can. Balance, flexibility, strength, and endurance all come from exercise. They all play a role in preventing falls. Follow Up with your doctor or as advised by our staff. Get Prompt Medical Attention if any of the following occur: Repeated mechanical falls, or unexplained falls Dizziness, fainting or seizure Severe headache Chest pain or shortness of breath Palpitations (very rapid or very slow or irregular heartbeat) Blood in vomit, stools (black or red color) Weakness of an arm or leg or one side of the face Difficulty with speech or vision Abrasions Abrasions are skin scrapes. Their treatment depends on how large and deep the abrasion is. Home Care: If you were given a bandage, change it once a day. If your bandage sticks to the wound, soak it in warm water until it loosens. Wash the area with soap and water to remove all the cream/ointment. You may do this in a sink, under a tub faucet or shower. Rinse off the soap and pat dry with a clean towel. Reapply cream/ointment according to your doctor's instructions. This will prevent infection and help prevent the bandage from sticking. Cover the wound with a fresh non-stick bandage (Telfa). Repeat steps 1 to 4 daily, or as directed by your doctor. If the bandage becomes wet or dirty, change it as soon as possible. You may use acetaminophen (Tylenol) or ibuprofen (Motrin, Advil) to control pain, unless another pain medicine was prescribed. [ NOTE : If you have chronic liver or kidney disease or ever had a stomach ulcer or GI bleeding, talk with your doctor before using these medicines.] Do not use ibuprofen in children under six months of age. Follow Up with your physician or this facility as directed by our staff. Most skin wounds heal within ten days. However, an infection may occur despite proper treatment. Therefore, look for the early signs of infection listed below. Get Prompt Medical Attention if any of the following occur: Increasing pain in the wound Increasing redness or swelling Pus coming from the wound Fever of 100.4F (38C) or higher, or as directed by your healthcare provider Neck Sprain Or Strain A sudden force that causes turning or bending of the neck (such as in a car accident) can stretch or tear muscles (strain) and ligaments (sprain) and cause neck pain. Sometimes neck pain occurs after a simple awkward movement. In either case, muscle spasm is commonly present and contributes to the pain. Unless you had a forceful physical injury (for example, a car accident or fall), X-rays are usually not ordered for the initial evaluation of neck pain. If pain continues and dose not respond to medical treatment, X-rays and other tests may be performed at a later time. Home care The following guidelines will help you care for your injury at home: You may feel more soreness and spasm the first few days after the injury. Reduce your activity level until symptoms begin to improve. When lying down, use a comfortable pillow that supports the head and keeps the spine in a neutral position. The position of the head should not be tilted forward or backward. Use ice packs (ice in a plastic bag, wrapped in a towel) to treat acute pain. Apply for 20 minutes every 24 hours during the first two days. Then, begin local heat (hot shower, hot bath or heating pad) andmassageto reduce muscle spasm. Some patients feel best alternating hot and cold treatments, or just staying with one method only. Do what feels the best to you and gives the most relief. You may use acetaminophen or ibuprofen to control pain, unless another pain medicine was prescribed.If you have chronic liver or kidney disease or ever had a stomach ulcer or GI bleeding, talk with your doctor before using these medicines. Follow-up care Follow up with your physician or this facility if your symptoms do not show signs of improvement. Physical therapy may be needed. If you had X-rays today, they didnt show any broken bones, breaks, or fractures. Sometimes fractures dont show up on the first X-ray. Bruises and sprains can sometimes hurt as much as a fracture. These injuries can take time to heal completely. If your symptoms dont improve or they get worse, talk with your doctor. You may need a repeat X-ray. When to seek medical care Get prompt medical attention if any of the following occur: Pain becomes worse or spreads into your arms Weakness or numbness in one or both arms Abrasions Abrasions are skin scrapes. Their treatment depends on how large and deep the abrasion is. Home Care: If you were given a bandage, change it once a day. If your bandage sticks to the wound, soak it in warm water until it loosens. Wash the area with soap and water to remove all the cream/ointment. You may do this in a sink, under a tub faucet or shower. Rinse off the soap and pat dry with a clean towel. Reapply cream/ointment according to your doctor's instructions. This will prevent infection and help prevent the bandage from sticking. Cover the wound with a fresh non-stick bandage (Telfa). Repeat steps 1 to 4 daily, or as directed by your doctor. If the bandage becomes wet or dirty, change it as soon as possible. You may use acetaminophen (Tylenol) or ibuprofen (Motrin, Advil) to control pain, unless another pain medicine was prescribed. [ NOTE : If you have chronic liver or kidney disease or ever had a stomach ulcer or GI bleeding, talk with your doctor before using these medicines.] Do not use ibuprofen in children under six months of age. Follow Up with your physician or this facility as directed by our staff. Most skin wounds heal within ten days. However, an infection may occur despite proper treatment. Therefore, look for the early signs of infection listed below. Get Prompt Medical Attention if any of the following occur: Increasing pain in the wound Increasing redness or swelling Pus coming from the wound Fever of 100.4F (38C) or higher, or as directed by your healthcare provider Head Injury With Wake-Up (Adult) You have had a head injury. It does not appear serious at this time. Symptoms of a more serious problem (concussion, bruising, or bleeding in the brain) may appear later. Therefore, watch for the WARNING SIGNS listed below. Home Care: During the next 24 hours someone must stay with you. This person should wake you every 2 hours to check for the signs below. If you have swelling of the face or scalp, apply an ice pack (ice cubes in a plastic bag, wrapped in a towel) for 20 minutes every 1-2 hours until the swelling starts to go down. Do not use aspirin or ibuprofen (Motrin, Advil) after a head injury. You may use acetaminophen (Tylenol) to control pain, unless another pain medicine was prescribed. [NOTE: If you have chronic liver or kidney disease or ever had a stomach ulcer or GI bleeding, talk with your doctor before using these medicines.] For the next 24 hours: Do not take alcohol, sedatives, or medicines that make you sleepy. Do not drive or operate machinery. Avoid strenuous activities. No lifting or straining. If you have had any symptoms of a concussion today (nausea, vomiting, dizziness, confusion, headache, memory loss, or you were knocked out), do not return to sports or any activity that could result in another head injury until all symptoms are gone and you have been cleared by your doctor. A second head injury before fully recovering from the first one can lead to serious brain injury. Follow Up with your doctor if symptoms are not improving after 24 hours, or as directed. [NOTE: A radiologist will review any X-rays or CT scans that were taken. We will notify you of any new findings that may affect your care.] Get Prompt Medical Attention if any of the following WARNING SIGNS occur: Repeated vomiting Severe or worsening headache or dizziness Unusual drowsiness, or unable to awaken as usual Confusion or change in behavior or speech, memory loss, blurred vision Convulsion (seizure) Increasing scalp or face swelling Redness, warmth or pus from the swollen area Fluid drainage or bleeding from the nose or ears You have been given the following additional information: HEAD INJURY with Wake-Up (Adult) Fall, Mechanical Abrasion Neck Sprain/Strain Abrasion HEAD INJURY with Wake-Up (Adult) No driving or operating machinery while taking medication. Sedative medication was given during your visit. (Electronically signed by Farhan Santiago MD 10/07/2016 15:56)
--- NOTE | 2016-10-07 15:58 | ED MAR SUMMARY ---
..... Medication Administration Record [facility] [address] [place] [address] Patient: REYNA RODAS Visit ID: [id number] 61y, M Weight: 78.0 kg Height/Length: 68 in BMI: 26.2 ALLERGIES: Penicillin Given 02:10/06/2016 Kemal Shepard, R.N. Medication Administered: ZOFRAN ODT [PO] (ONDANSETRON), Dose: 4 mg PO. Medication Ordered: Zofran ODT PO 4 mg (NOW). Given 02:10/06/2016 Kemal Shepard, R.N. Medication Administered: DILAUDID [IM] (HYDROMORPHONE HCL PF), Dose: 1 mg IM. Medication Ordered: Dilaudid IM 1 mg (HIGH ALERT MEDICATION, NOW).
--- NOTE | 2016-10-07 15:58 | ED MED RECONCILIATION SUMMARY ---
Patient: REYNA RODAS Medication Reconciliation Report [facility] VisitID: [id number] [address] [place] [address] 61y, M Registration Date/Time: 10/06/2016 Weight: 78.0 kg Height/Length: 68 in. BMI: 26.2 ALLERGIES: Penicillin The patient's Home Medications are listed below: CONTINUE TAKING THE FOLLOWING MEDICATIONS: Metoprolol Tartrate Oral, pt usure of dose OxyCODONE HCl Oral, pt unsure of dose Pantoprazole Sodium Oral, daily, pt unsure of dose Venlafaxine HCl ER Oral 175mg, daily The source(s) of the original Home Medication information: patient The following Medications were given to the patient in the Emergency Department: Zofran ODT [PO] PO 4 mg, administered: 10/06/2016 2:25:00 AM Dilaudid [IM] IM 1 mg, administered: 10/06/2016 2:26:00 AM The following Medications were prescribed to the patient: None.
== END 2016-10-06 03:53 | disposition home or self-care (01) ==
LOC: ED SRH 00:13
DX: S09.90XA Unspecified injury of head, initial encounter (principal); S16.1XXA Strain of muscle, fascia and tendon at neck level, initial encounter; S00.01XA Abrasion of scalp, initial encounter; Y93.9 Activity, unspecified; Y99.9 Unspecified external cause status; Y92.008 Other place in unspecified non-institutional (private) residence as the place of occurrence of the external cause; I25.2 Old myocardial infarction; B17.10 Acute hepatitis C without hepatic coma; Z79.891 Long term (current) use of opiate analgesic; Z79.899 Other long term (current) drug therapy

== ENCOUNTER 2016-10-07 15:17 | Emergency (ER) | payer OTHER ==
--- NOTE | 2016-10-07 21:06 | ED ORDER SUMMARY ---
..... Patient: REYNA RODAS OrderSheet [facility] VisitID: [id number] [place] [address] 61y, M Registration Date/Time: 10/07/2016 ORDER SHEET Weight: 78.0 kg (stated) Allergies: Penicillin GENERAL ORDERS: CBC w Diff Urgent (15:41 10/07/2016 LWhalen R.N. per protocol) (Ack 15:48 LNations ER Tech1) (17:14 LWhalen R.N.) CMP Urgent (15:41 10/07/2016 LWhalen R.N. per protocol) (Ack 15:48 LNations ER Tech1) (17:14 LWhalen R.N.) UA-Culture if indicated Urgent (15:41 10/07/2016 LWhalen R.N. per protocol) (Ack 15:48 LNations ER Tech1) (17:14 LWhalen R.N.) Vitals (15:41 10/07/2016 LWhalen R.N. per protocol) (Ack 16:08 LNations ER Tech1) (17:14 LWhalen R.N.) EKG - ER Stat (15:48 10/07/2016 LNations ER Tech1 per protocol) (15:48 LNations ER Tech1) Amylase Urgent (16:03 10/07/2016 Dayan VIEIRA) (Ack 16:07 LNations ER Tech1) (17:14 LWhalen R.N.) Lipase Urgent (16:03 10/07/2016 Dayan VIEIRA) (Ack 16:07 LNations ER Tech1) (17:14 LWhalen R.N.) CPK Urgent (16:03 10/07/2016 Dayan VIEIRA) (Ack 16:07 LNations ER Tech1) (17:14 LWhalen R.N.) Troponin-I Urgent (16:03 10/07/2016 Dayan VIEIRA) (Ack 16:08 LNations ER Tech1) (17:14 LWhalen R.N.) BNP Urgent (16:03 10/07/2016 Dayan VIEIRA) (Ack 16:08 LNations ER Tech1) (17:14 LWhalen R.N.) Vitals - Orthostatic (16:04 10/07/2016 Dayan VIEIRA) (Ack 16:08 LNations ER Tech1) (16:23 PWeiler ER Tech1) MEDICATION ORDERS: Potassium Chloride PO 20 meq (NOW) (17:15 10/07/2016 LWhalen R.N. verbal order read back to Dayan VIEIRA) (17:18 LWhalen R.N.) IV FLUIDS: IV NS with Normal Saline 1 Liter: initial bolus 250 mL (1000 mL/hr), then 1000 mL/hr for X1 (NOW); Daniel (15:40 10/07/2016 LWhalen R.N. per protocol) (15:43 LWhalen R.N.) Ondansetron IV 4 mg (NOW) (15:41 10/07/2016 LWhalen R.N. per protocol) (15:42 LWhalen R.N.) Potassium Chloride IV 20 meq/100mL (HIGH ALERT MEDICATION, NOW) (17:15 10/07/2016 LWhalen R.N. verbal order read back to Dayan VIEIRA) (17:17 LWhalen R.N.) ORDER SHEET NOTES: [Electronically signed by Siri Baker R.N. (02:55 10/08/2016)] [Electronically signed by Farhan Santiago MD (11:45 10/25/2016)] [Electronically locked/signed by Siri Baker R.N. (02:55 10/08/2016)]
--- NOTE | 2016-10-07 21:06 | ED NURSING NOTES ---
Clinical Report - Nurses [facility] [address] [place] [address] 10/07/2016 15:17 [id number] Triage time 15:Oct 07 2016. Acuity: LEVEL 3. Chief Complaint: MUSCLE ACHES, ACTING DIFFERENTLY, POOR APPETITE, HEADACHE, DIZZINESS, FAINTING, NUMBNESS, WEAKNESS, DIFFICULTY WALKING, CONFUSION, NAUSEA, DIARRHEA and ABDOMINAL PAIN. JORGE COMA SCORE: Jorge Coma Scale: 15- eyes open spontaneously (4); best verbal response- oriented x 4 (5); best motor response- obeys commands (6). --15:33 Philip Piper R.N. 15:24 10/07/16. BP: 138/81. HR: 70. RR: 25. O2 saturation: 98%. Temp: 98.1 F. Pain level now 8. --15:33 Philip Piper R.N. Weight: 78 kg stated. Height/Length: 68 inches Per Patient. BMI: 26.2. --15:31 Philip Piper R.N. Medications Metoprolol Tartrate Oral (pt usure of dose ). OxyCODONE HCl Oral, as needed (pt unsure of dose ). Pantoprazole Sodium Oral, daily (pt unsure of dose). Venlafaxine HCl ER Oral 175mg, daily. --15:30 Philip Piper R.N. Allergies Penicillin. --15:30 Philip Piper R.N. History Arrived by EMS. Historian: patient. ( Fell on Thursday and hit his head was seen here and cleared to go home. Now is having dizziness, confusion, syncope, muscle aches and extremities have numbness and tingling along with diarrhea.). He has had weakness. Reports muscle aches. PAST MEDICAL HX: Immunizations: up-to-date. SOCIAL HX: Current every day light tobacco smoker (cigarette)- less than 1/2 a pack per day. History of drug use: marijuana. No alcohol use. SELF HARM ASSESSMENT: A self harm assessment was performed. The patient answered "no" to the question "Have you recently felt down, depressed, or hopeless?" and "Do you have thoughts of harming or killing yourself?". FALL RISK ASSESSMENT: Fall risk assessment completed. No fall risk identified. NUTRITIONAL RISK ASSESSMENT: The nutritional risk assessment revealed no deficiencies. FUNCTIONAL ASSESSMENT: Functional assessment: no impairments noted. LEARNING NEEDS ASSESSMENT: The learning needs assessment revealed no barriers. ABUSE ASSESSMENT: Abuse assessment: (yes) The patient was asked "Do you feel safe in your home?". SKIN INTEGRITY ASSESSMENT: Skin integrity risk assessment completed. No skin integrity risk identified. --15:33 Philip Piper R.N. PROBLEMS: Fall. Cervical Strain. Head Injury. Abrasion(s). Constipation. Cholecystitis. Hepatitis C. Cholelithiasis. Chest Wall Pain. Acute Myocardial Infarction. Hepatitis. Depression. Gastroesophageal Reflux Disease. Abdominal Pain. Gallstone(s). Dental Abscess. Immunizations. Aat, liver disease . Sprain. Hemochromatosis. --15:30 Philip Piper R.N. Syncope [RuleOut]. --15:30 Philip Piper R.N. ADDITIONAL SURGERIES: Appendectomy. Cholecystectomy. Liver Biopsy. --15:30 Philip Piper R.N. Interventions ID and allergy band on patient. --15:33 Philip Piper R.N. PHYSICAL ASSESSMENT To room via stretcher. GENERAL / NEURO / PSYCH: Alert. Oriented X 4. Appears in pain and anxious. HEENT: Pupils equal, round and reactive to light. No facial asymmetry noted. Mucous membranes are pink. RESPIRATORY: Respirations not labored. Cough (recovering cough from last week very mild). Chest nontender. Breath sounds within normal limits. CVS: Normal sinus rhythm noted. Capillary refill less than 2 seconds. Pulses within normal limits. GI / : ( diarrhea). Abdomen soft and nontender. SKIN: Skin intact. Skin is warm and dry. Normal skin turgor. --15:34 Philip Piper R.N. NURSING PROGRESS NOTES The initial plan of care for this patient includes an assessment with efforts to address patient positioning, appropriate ambient lighting and comfortable environmental temperature; impairment of the gastrointestinal and neurological system. Pulse oximeter and NIBP monitor placed on patient. EKG time: (1533). Patient gowned. Head of bed elevated 75 degrees. Reassurance given. Call light placed in reach. Side rails up x 1. Bed placed in lowest position. Brakes of bed on. --15:34 Philip Piper R.N. 15:17 10/07/2016 Site #1 started prior to arrival by EMS via IV in the right antecubital space with an 22g angiocath, with aseptic technique and good blood return; one attempt. Saline lock flushed with saline. --15:38 Philip Piper R.N. 15:41 10/07/2016 Ondansetron (Ondansetron HCl) IVP 4 mg given over 2 minute(s) via site #1. Allergies verified and confirmed 5 rights. IV patency established. IV site checked: no pain, redness, or swelling. IV flushed thoroughly pre- and post-medication administration. --15:42 Philip Piper R.N. 15:42 10/07/2016 Started bag #1 1000 mL IV Fluids IV NS (Saline); at 1000 mL/hr over 0.15 hour(s) via site #1 via IV pump. Allergies verified and confirmed 5 rights. IV patency established. IV site checked: no pain, redness, or swelling. IV flushed thoroughly pre- and post-medication administration. --15:43 Philip Piper R.N. 16:17 10/07/16. BP: 126/75 taken while lying. HR: 61. RR: 24. O2 saturation: 99%. Additional comments: Orthostatic vitals done. Sitting: BP: 130/83 HR: 70 Sat: 100% Resp: 22. Standing: BP: 127/91 HR: 70 Sat: 100% Resp: 24. --16:21 Rafael Paulson ER Tech1 ( After standing for 15-20 seconds during orthostatic vitals, the patient became suddenly light headed and dizzy and had to sit back down.). --16:21 Rafael Paulson ER Tech1 Patient ID band checked for patient name and birthdate: patient confirmed. Blood samples drawn from the right antecubital space with 23g butterfly by tech ; labeled in presence of the patient and sent to lab: pati gaspar. --16:22 Rafael Paulson, ER Tech1 17:17 10/07/2016 Started 20 meq of Potassium Chloride (Potassium Chloride) IVPB in bag #1 50 mL; at 25 mL/hr over 2 hour(s) via site #1 via IV pump. Allergies verified and confirmed 5 rights. IV patency established. IV site checked: no pain, redness, or swelling. IV flushed thoroughly pre- and post-medication administration. --17:17 Philip Piper R.N. 17:18 10/07/2016 Potassium Chloride (Potassium Chloride ER) PO Capsules 20 meq given. Allergies verified and confirmed 5 rights. --17:18 Philip Piper R.N. 18:30 10/07/16. BP: 130/63. HR: 71. RR: 21. O2 saturation: 99%. 17:45 10/07/16. BP: 146/78. HR: 73. RR: 22. O2 saturation: 100% on nasal cannula at 2 liters/minute. 17:00 10/07/16. BP: 137/74. HR: 70. RR: 23. O2 saturation: 100% on nasal cannula at 2 liters/minute. 16:17 10/07/16. BP: 126/75 taken while lying. HR: 61. RR: 24. O2 saturation: 99%. Additional comments: Orthostatic vitals done. Sitting: BP: 130/83 HR: 70 Sat: 100% Resp: 22. Standing: BP: 127/91 HR: 70 Sat: 100% Resp: 24. 16:15 10/07/16. BP: 129/81. HR: 67. RR: 21. O2 saturation: 99% on nasal cannula at 2 liters/minute. 16:00 10/07/16. BP: 130/83. HR: 69. RR: 24. O2 saturation: 99%. --18:54 Philip Piper R.N. 19:10/07/16. Care transferred and report received (from Lance Epperson RN). --19:17 Siri Baker R.N. 19:10/07/16. BP: 130/63. HR: 72. RR: 20. O2 saturation: 98%. Temp: deferred. Pain level now: 08/20. --19:20 Siri Baker R.N. Patient and family informed about reason for wait and about plan of care. --19:20 Siri Baker R.N. 20:00 10/07/16. BP: 138/76. HR: 71. RR: 22. O2 saturation: 98%. Pain level now: 08/20. --20:36 Siri Baker R.N. 16:42 10/07/2016 IV Fluids IV NS Discontinued: bag #1 infused. Total amount infused: 1000 mL. IV patency established. IV site checked: no pain, redness, or swelling. IV flushed thoroughly. --21:23 Esme Jackson 19:17 10/07/2016 Potassium Chloride IVPB Discontinued: bag #1 infused. Total amount infused: 50 mL. --21:23 Esme Jackson 21:23 10/07/2016 Site #1 removed upon discharge. Catheter intact. Pressure dressing applied. --21:23 Esme Jackson. DISPOSITION / DISCHARGE 02:55 10/08/16. ( Patient discharged by other RN). --02:55 Siri Baker R.N. Locked/Released at 10/08/2016 2:55 by Siri Baker R.N.
--- NOTE | 2016-10-07 21:06 | ED ORDER SUMMARY ---
..... Patient: REYNA RODAS OrderSheet [facility] VisitID: [id number] [place] [address] 61y, M Registration Date/Time: 10/07/2016 ORDER SHEET Weight: 78.0 kg (stated) Allergies: Penicillin GENERAL ORDERS: CBC w Diff Urgent (15:41 10/07/2016 LWhalen R.N. per protocol) (Ack 15:48 LNations ER Tech1) (17:14 LWhalen R.N.) CMP Urgent (15:41 10/07/2016 LWhalen R.N. per protocol) (Ack 15:48 LNations ER Tech1) (17:14 LWhalen R.N.) UA-Culture if indicated Urgent (15:41 10/07/2016 LWhalen R.N. per protocol) (Ack 15:48 LNations ER Tech1) (17:14 LWhalen R.N.) Vitals (15:41 10/07/2016 LWhalen R.N. per protocol) (Ack 16:08 LNations ER Tech1) (17:14 LWhalen R.N.) EKG - ER Stat (15:48 10/07/2016 LNations ER Tech1 per protocol) (15:48 LNations ER Tech1) Amylase Urgent (16:03 10/07/2016 Dayan VIEIRA) (Ack 16:07 LNations ER Tech1) (17:14 LWhalen R.N.) Lipase Urgent (16:03 10/07/2016 Dayan VIEIRA) (Ack 16:07 LNations ER Tech1) (17:14 LWhalen R.N.) CPK Urgent (16:03 10/07/2016 Dayan VIEIRA) (Ack 16:07 LNations ER Tech1) (17:14 LWhalen R.N.) Troponin-I Urgent (16:03 10/07/2016 Dayan VIEIRA) (Ack 16:08 LNations ER Tech1) (17:14 LWhalen R.N.) BNP Urgent (16:03 10/07/2016 Dayan VIEIRA) (Ack 16:08 LNations ER Tech1) (17:14 LWhalen R.N.) Vitals - Orthostatic (16:04 10/07/2016 Dayan VIEIRA) (Ack 16:08 LNations ER Tech1) (16:23 PWeiler ER Tech1) MEDICATION ORDERS: Potassium Chloride PO 20 meq (NOW) (17:15 10/07/2016 LWhalen R.N. verbal order read back to Dayan VIEIRA) (17:18 LWhalen R.N.) IV FLUIDS: IV NS with Normal Saline 1 Liter: initial bolus 250 mL (1000 mL/hr), then 1000 mL/hr for X1 (NOW); Daniel (15:40 10/07/2016 LWhalen R.N. per protocol) (15:43 LWhalen R.N.) Ondansetron IV 4 mg (NOW) (15:41 10/07/2016 LWhalen R.N. per protocol) (15:42 LWhalen R.N.) Potassium Chloride IV 20 meq/100mL (HIGH ALERT MEDICATION, NOW) (17:15 10/07/2016 LWhalen R.N. verbal order read back to Dayan VIEIRA) (17:17 LWhalen R.N.) ORDER SHEET NOTES: [Electronically signed by Siri Baker R.N. (02:55 10/08/2016)] [Electronically signed by Farhan Santiago MD (11:45 10/25/2016)] [Electronically locked/signed by Siri Baker R.N. (02:55 10/08/2016)]
--- NOTE | 2016-10-07 21:06 | ED CLINICAL REPORT ---
Clinical Report - Physicians/Mid Levels [facility] [address] [place] [address] 10/07/2016 15:17 Patient: REYNA RODAS Time Seen: 15:52. Arrived- By private vehicle. Historian- patient. HISTORY OF PRESENT ILLNESS Chief Complaint: HEAD INJURY MUSCLE ACHES, ACTING DIFFERENTLY, POOR APPETITE, HEADACHE, DIZZINESS, FAINTING, NUMBNESS, WEAKNESS, DIFFICULTY WALKING, CONFUSION, NAUSEA, DIARRHEA and ABDOMINAL PAIN. This started several days ago and is still present. It was abrupt in onset and has been constant and waxing/waning. At its maximum, severity described as moderate. When seen in the E.D., severity described as moderate. The patient has had a headache, fatigue, muscle aches and weakness. (Fell on Thursday and hit his head was seen here and cleared to go home. Now is having dizziness, confusion, syncope, muscle aches and extremities have numbness and tingling along with diarrhea). REVIEW OF SYSTEMS The patient has had muscle aches, fatigue, dizziness and a headache. He has had loose stools (chronically). It has been watery. No bloody or blood-tinged diarrhea. No urinary problems. He sustained a head injury (on Thursday - he was seen here for this). He has had diabetic symptoms, including fatigue. No polydipsia, polyuria or polyphagia. All systems otherwise negative, except as recorded above. SOCIAL HISTORY Light tobacco smoker (cigarette)- less than 1/2 a pack per day. History of drug use: marijuana. No alcohol use. FAMILY HISTORY Denies family medical history. ADDITIONAL NOTES The nursing notes have been reviewed. PHYSICAL EXAM Vital Signs: 10/07/2016 15:24 BP: 138/81. HR: 70. RR: 25. O2 saturation: 98%. Temp: 98.1 F. Have been reviewed. Appearance: Alert. No acute distress. Eyes: Pupils equal, round and reactive to light. ENT: Pharynx normal. Neck: Normal inspection. CVS: Normal heart rate and rhythm. Heart sounds normal. Respiratory: No respiratory distress. Breath sounds normal. Abdomen: No visible injury. Soft and nontender. Bowel sounds normal. No organomegaly. No mass. Back: Normal inspection. No CVA tenderness. Skin: Skin warm and dry. Normal skin color. Normal skin turgor. Extremities: Extremities exhibit normal ROM. No calf tenderness. No lower extremity edema. Neuro: Oriented X 3. No motor deficit. No sensory deficit. LABS, X-RAYS, AND EKG EKG: No acute process. Normal EKG. Rate: 65. EKG unchanged when compared with prior EKG. (when compared with study of 06 October 2016 and 04 May 2016). Laboratory Tests: UA-Culture if indicated: (HOLLY: 10/07/2016 17:20) ( Mscvd 10/07/2016 17:42) Final results Test Result Flag Units (Reference) URINE COLOR YELLOW URINE APPEARANCE CLEAR URINE GLUCOSE NEGATIVE (NEGATIVE) URINE BILIRUBIN NEGATIVE (NEGATIVE) URINE KETONE 2+ (NEGATIVE) URINE SPECIFIC GRAVITY 1.020 (1.010-1.030) URINE PH 7.0 (5.0-8.0) URINE PROTEIN NEGATIVE (NEGATIVE) URINE UROBILINOGEN 1.0 EU/dL (0.2-1.0) URINE NITRITE NEGATIVE (NEGATIVE) URINE BLOOD NEGATIVE (NEGATIVE) URINE LEUK ESTERASE NEGATIVE (NEGATIVE) URINE RBC NONE SEEN rbc/hpf (0-1) URINE WBC 1-3 wbc/hpf (0-1) URINE EPITHELIAL CELLS 0-1 EPI/hpf (0-5) URINE BACTERIA TRACE (<1+) (NONE SEEN) URINE COMMENT CULT NOT INDICATED 3+ MUCUSURINE CULTURES ARE SET-UP BASED ON THE FOLLOWING CRITERIA:POSITIVE NITRITEPOSITIVE LEUKOCYTE ESTERASEGREATER THAN 10 WHITE BLOOD CELLSMODERATE (2+) OR GREATER BACTERIA CBC w Diff: (HOLLY: 10/07/2016 16:05) ( MsgRcvd 10/07/2016 16:31) Final results Test Result Flag Units (Reference) WHITE BLOOD COUNT 7.4 K/uL (4.5-11.5) RED BLOOD COUNT 4.37 L M/uL (4.50-5.90) HEMOGLOBIN 13.4 L gm/dL (13.5-17.5) HEMATOCRIT 40.9 L % (41.0-53.0) MEAN CELL VOLUME 94 fL (80-100) MEAN CORPUSCULAR HGB 31 pg (26-34) MEAN CORPUSCULAR HGB CONC 33 g/dL (31-37) RED CELL DISTRIBUTION WIDTH 13.6 % (11.6-14.8) PLATELET COUNT 142 L K/uL (150-400) NEUTROPHIL % 68.9 % (50-75) LYMPH % 23.5 L % (25-40) MONO % 6.8 % (3-14) EOSINOPHIL % 0.3 % (0-4) BASOPHIL % 0.5 % (0-2) BNP: (HOLLY: 10/07/2016 16:05) ( [facility] 10/07/2016 16:38) Final results Test Result Flag Units (Reference) B-TYPE NATRIURETIC PEPTIDE 14.4 pg/ml (5-100) CMP: (HOLLY: 10/07/2016 16:05) ( AzgRcvd 10/07/2016 17:04) Final results Test Result Flag Units (Reference) GLUCOSE 86 mg/dL (70-110) BUN 14 mg/dL (7-18) CREATININE 0.7 mg/dL (0.6-1.3) Estimated GFR >60 mL/min Estimated GFR- >60 mL/min Note: Persistent reduction over 3 months in eGFR<60 mL/min/1.73 m2 defines CKD. Patients with eGFR values>=60 mL/min/1.73 m2 may also have CKD if evidence ofpersistent proteinuria. Additional information may be foundat www.kidney.org. SODIUM 142 mmol/L (136-145) POTASSIUM 2.9 *L mmol/L (3.5-5.1) CRITICAL RESULTS CALLEDCalled to [facility] 10/07/16 1703Were 2 patient identifiers used? YWas the result read back? Y CHLORIDE 110 H mmol/L (98-107) CARBON DIOXIDE 21 mmol/L (21-32) CALCIUM 7.2 L mg/dL (8.5-10.1) TOTAL PROTEIN 6.3 L g/dL (6.4-8.2) ALBUMIN 2.8 L g/dL (3.3-5.0) BILIRUBIN, TOTAL 0.6 mg/dL (0.0-1.0) ALKALINE PHOSPHATASE 88 U/L (46-116) AST (SGOT) 43 H U/L (15-37) ALT (SGPT) 77 U/L (12-78) LIPASE 100 U/L (73-393) AMYLASE 26 U/L (25-115) CPK 50 U/L (24-260) TROPONIN I <0.05 L ng/mL (0.00-1.5) TROPONIN REFERENCE RANGE:<0.1 NEGATIVE0.1-1.5 INDETERMINANT>1.5 POSITIVE MAGNESIUM 1.6 L mg/dL (1.8-2.4) . PROGRESS AND PROCEDURES Patient/family counseled. Old medical records reviewed. Disposition: Discharged. Condition: stable. CLINICAL IMPRESSION Diarrhea Concussion. Mild hypocalcemia. Hypokalemia Mild hypomagnesemia. INSTRUCTIONS Rest. Drink plenty of fluids. Warnings: Further evaluation is necessary. GENERAL WARNINGS: Return or contact your physician immediately if your condition worsens or changes unexpectedly, if not improving as expected, or if other problems arise. Your Current Medications: CONTINUE TAKING THE FOLLOWING MEDICATIONS: Metoprolol Tartrate Oral : pt usure of dose. OxyCODONE HCl Oral : prn, pt unsure of dose. Pantoprazole Sodium Oral : daily, pt unsure of dose. Venlafaxine HCl ER Oral : 175mg daily. Follow-up: Follow up with your doctor PIYUSH TRINIDAD tomorrow as scheduled. Understanding of the discharge instructions verbalized by patient and family. (Electronically signed by Farhan Santiago MD 10/25/2016 11:45)
--- NOTE | 2016-10-25 11:45 | ED DISCHARGE INSTRUCTIONS ---
Patient: REYNA RODAS General Instructions [facility] VisitID: [id number] [place] [address] 61y, M Registration Date/Time: 10/07/2016 Diarrhea Concussion. Mild hypocalcemia. Hypokalemia Mild hypomagnesemia. INSTRUCTIONS Rest. Drink plenty of fluids. Warnings: Further evaluation is necessary. GENERAL WARNINGS: Return or contact your physician immediately if your condition worsens or changes unexpectedly, if not improving as expected, or if other problems arise. Your Current Medications: CONTINUE TAKING THE FOLLOWING MEDICATIONS: Metoprolol Tartrate Oral : pt usure of dose. OxyCODONE HCl Oral : prn, pt unsure of dose. Pantoprazole Sodium Oral : daily, pt unsure of dose. Venlafaxine HCl ER Oral : 175mg daily. Follow-up: Follow up with your doctor PIYUSH TRINIDAD tomorrow as scheduled. Understanding of the discharge instructions verbalized by patient and family. ADDITIONAL INFORMATION Concussion (No Wake-Up) A concussion happens when you hit your head with enough force to shake up the brain. This may cause you to lose consciousness be "knocked out" - but not always. Depending on how hard you hit your head, it will take from a few hours up to a few days to get better. Sometimes symptoms may last a few months or longer. This is called post-concussion syndrome. At first, you may have a headache, nausea, vomiting, or dizziness. You may also have problems concentrating or remembering things. This is normal. Symptoms should get better as the hours and days go by. Symptoms that get worse could be a sign of a more serious injury. This might be a bruise or bleeding in the brain. Thats why its important to watch for the warning signs listed below. Home care Follow these tips to help care for yourself at home: During the next day (24 hours) someone must stay with you to check for the signs below. If your face or scalp swells, apply an ice pack for 20 minutes every 1 to 2 hours. Do this until the swelling starts to go down. You can make an ice pack by putting ice cubes in a plastic bag and wrapping the bag in a towel. for 20 minutes every 1-2 hours until the swelling starts to go down. You may use acetaminophen to control pain, unless another pain medicine was prescribed. If you have chronic liver or kidney disease, talk with your doctor before using these medicines. Also talk with your doctor if you ever had a stomach ulcer or GI bleeding. For the next 24 hours: Dont drink alcohol or take sedatives or medicines that make you sleepy. Dont drive or operate machinery. Avoid doing anything strenuous. Dont lift or strain. Dont return to sports or any activity that could cause you to hit your head until all symptoms are gone and you have been cleared by your doctor. A second head injury before fully recovering from the first one can lead to serious brain injury. Follow-up care Follow up with your doctor in 1 week, or as directed. Note: A radiologist will review any X-rays or CT scans that were taken. You will be told of any new findings that may affect your care. When to seek medical care Get prompt medical attention if any of these occur: Repeated vomiting Headache or dizziness that is severe or gets worse Unusual drowsiness, or unable to wake up as usual Confusion or change in behavior or speech, or memory loss Blurred vision Convulsion (seizure) Swelling on the scalp or face that gets worse Redness, warmth, or pus from the swollen area Fluid draining from or bleeding from the nose or ears Diarrhea, Uncertain Cause (Adult, Report Pending) Diarrhea has several possible causes. Commonstomach fluis caused by a virus. Food poisoning, bacteria or parasites are other causes for diarrhea. Only diarrhea caused by bacteria or parasites requires treatment with an antibiotic. Diarrhea from a virus or food poisoning improves with simple home treatment. A stool sample is needed to make the diagnosis of an infection with bacteria or parasites. Up to three stool specimens may be required to diagnose This may take up to two days to get the result. It may be necessary to wait until the stool test is complete to make the diagnosis and select the best antibiotic to prescribe. Home Care: If symptoms are severe, rest at home for the next 24 hours or until you are feeling better. You may use acetaminophen (Tylenol) or ibuprofen (Motrin, Advil) to control fever, unless another medicine was prescribed. [NOTE: If you have chronic liver or kidney disease or ever had a stomach ulcer or GI bleeding, talk with your doctor before using these medicines.] (Aspirin should never be used in anyone under 18 years of age who is ill with a fever. It may cause severe liver damage.) Avoid tobacco, caffeine and alcohol, which may worsen your symptoms. If anti-diarrhea medicine was prescribed, take this only as directed. Sometimes anti-diarrhea medicine can make your condition worse if the cause is an infectious diarrhea. Therefore, anti-diarrhea medicine should not be taken for this condition unless advised by your doctor. During The First 12-24 Hours follow the diet below: BEVERAGES: Sport drinks like Gatorade, soft drinks without caffeine; zehra krys, mineral water (plain or flavored), decaffeinated tea and coffee. SOUPS: Clear broth, consomm and bouillon DESSERTS: Plain gelatin (Jell-O), popsicles and fruit juice bars. During The Next 24 Hours you may add the following to the above: Hot cereal, plain toast, bread, rolls, crackers Plain noodles, rice, mashed potatoes, chicken noodle or rice soup Unsweetened canned fruit (avoid pineapple), bananas Limit fat intake to less than 15 grams per day by avoiding margarine, butter, oils, mayonnaise, sauces, gravies, fried foods, peanut butter, meat, poultry and fish. Limit fiber; avoid raw or cooked vegetables, fresh fruits (except bananas) and bran cereals. Limit caffeine and chocolate. No spices or seasonings except salt. During The Next 24 Hours Gradually resume a normal diet, as you feel better and your symptoms lessen. Follow Up with your doctor or as advised if you are not improving over the next two days. If you were asked to bring a specimen from home, bring the sample on the day of collection. You may call in 2 days (or as directed) for the results. Get Prompt Medical Attention if any of the following occur: Increasing abdominal pain or constant lower right abdominal pain Continued vomiting (unable to keep liquids down) Frequent diarrhea (more than 5 times a day) Blood in vomit or stool (black or red color) Reduced oral intake Dark urine, reduced urine output Weakness, dizziness, fainting Drowsiness, confusion, stiff neck or seizure Fever of 100.4F (38C) oral or higher, not better with fever medication New rash Hypokalemia Hypokalemia means a low level of potassium in the blood. This most often occurs in patients who take diuretics (water pills). It can also occur due to severe vomiting or diarrhea. A mild case usually causes no symptoms. It is only found with blood testing. More severe potassium loss causes generalized weakness, muscle or abdominal cramping, heart palpitations (rapid or irregular heartbeats) and low blood pressure. Home Care: 1) Take any potassium supplements prescribed. 2) Eat foods rich in potassium. The highest amount is found in artichoke, baked potatoes, spinach, cantaloupe, honeydew melon, cod, halibut, salmon, and scallops. White, red, or mendez beans are also very good sources. A modest amount is found in orange juice, bananas, carrots, and tomato juice. 3) Certain types of diuretics (water pills), such as Lasix (furosemide), require that you take potassium supplements for as long as you take the diuretic pills. If you are taking a diuretic, discuss the need for potassium supplements with your doctor. Follow Up with your doctor for a repeat blood test within the next week or as advised by our staff. Get Prompt Medical Attention if any of the following occur: -- Increased weakness -- Feeling dizzy -- Irregular heartbeat, extra beats or very fast heart rate -- Fainting spell You have been given the following additional information: Concussion, No Wake-Up Diarrhea, Unk Cause (Adult) Report Pendg Hypokalemia Rest. (Electronically signed by Farhan Santiago MD 10/25/2016 11:45)
--- NOTE | 2016-10-25 11:45 | ED MED RECONCILIATION SUMMARY ---
Patient: REYNA RODAS Medication Reconciliation Report [facility] VisitID: [id number] [address] [place] [address] 61y, M Registration Date/Time: 10/07/2016 Weight: 78.0 kg Height/Length: 68 in. BMI: 26.2 ALLERGIES: Penicillin The patient's Home Medications are listed below: CONTINUE TAKING THE FOLLOWING MEDICATIONS: Metoprolol Tartrate Oral, pt usure of dose OxyCODONE HCl Oral, pt unsure of dose Pantoprazole Sodium Oral, daily, pt unsure of dose Venlafaxine HCl ER Oral 175mg, daily The source(s) of the original Home Medication information: Not obtained. The following Medications were given to the patient in the Emergency Department: Ondansetron [IVP] IVP 4 mg, administered: 10/07/2016 3:41:00 PM IV NS IV Fluids bolus 0, then 1000 mL/hr, administered: 10/07/2016 3:42:00 PM Potassium Chloride [IVPB] IVPB bolus 0, then 20 meq 25 mL/hr, administered: 10/07/2016 5:17:00 PM Potassium Chloride [PO] PO 20 meq, administered: 10/07/2016 5:18:00 PM The following Medications were prescribed to the patient: None.
--- NOTE | 2016-10-25 11:45 | ED MAR SUMMARY ---
..... Medication Administration Record [facility] [address] [place] [address] Patient: REYNA RODAS Visit ID: [id number] 61y, M Weight: 78.0 kg Height/Length: 68 in BMI: 26.2 ALLERGIES: Penicillin Given 15:41 10/07/2016 Philip Piper R.N. Medication Administered: ONDANSETRON [IVP] (ONDANSETRON HCL), Dose: 4 mg IVP over 2 minute(s), Site: #1 right AC. Medication Ordered: Ondansetron IV 4 mg (NOW). Start 15:42 10/07/2016 Philip Piper R.N., Stop 16:42 10/07/2016 Esme Jackson, Medication Administered: IV NS (SALINE), Dose: IV Fluids over 0.15 hour(s), Rate: 1000 mL/hr, Dispensed: 1000 mL bag, Site: #1 right AC. Medication Ordered: IV NS with Normal Saline 1 Liter: initial bolus 250 mL (1000 mL/hr), then 1000 mL/hr for X1 (NOW); Daniel. Start 17:17 10/07/2016 Philip Piper R.N., Stop 19:17 10/07/2016 Esem Jackson, Medication Administered: POTASSIUM CHLORIDE [IVPB] (POTASSIUM CHLORIDE), Dose: 20 meq IVPB over 2 hour(s), Rate: 25 mL/hr, Dispensed: 50 mL bag, Site: #1 right AC. Medication Ordered: Potassium Chloride IV 20 meq/100mL (HIGH ALERT MEDICATION, NOW). Given 17:18 10/07/2016 Philip Piper R.N. Medication Administered: POTASSIUM CHLORIDE [PO] (POTASSIUM CHLORIDE ER), Dose: 20 meq Capsules PO. Medication Ordered: Potassium Chloride PO 20 meq (NOW).
--- NOTE | 2016-10-25 11:45 | ED MED RECONCILIATION SUMMARY ---
Patient: REYNA RODAS Medication Reconciliation Report [facility] VisitID: [id number] [address] [place] [address] 61y, M Registration Date/Time: 10/07/2016 Weight: 78.0 kg Height/Length: 68 in. BMI: 26.2 ALLERGIES: Penicillin The patient's Home Medications are listed below: CONTINUE TAKING THE FOLLOWING MEDICATIONS: Metoprolol Tartrate Oral, pt usure of dose OxyCODONE HCl Oral, pt unsure of dose Pantoprazole Sodium Oral, daily, pt unsure of dose Venlafaxine HCl ER Oral 175mg, daily The source(s) of the original Home Medication information: Not obtained. The following Medications were given to the patient in the Emergency Department: Ondansetron [IVP] IVP 4 mg, administered: 10/07/2016 3:41:00 PM IV NS IV Fluids bolus 0, then 1000 mL/hr, administered: 10/07/2016 3:42:00 PM Potassium Chloride [IVPB] IVPB bolus 0, then 20 meq 25 mL/hr, administered: 10/07/2016 5:17:00 PM Potassium Chloride [PO] PO 20 meq, administered: 10/07/2016 5:18:00 PM The following Medications were prescribed to the patient: None.
--- NOTE | 2016-10-25 11:45 | ED MAR SUMMARY ---
..... Medication Administration Record [facility] [address] [place] [place] [address] Patient: REYNA RODAS Visit ID: [id number] 61y, M Weight: 78.0 kg Height/Length: 68 in BMI: 26.2 ALLERGIES: Penicillin Given 15:41 10/07/2016 Philip Piper R.N. Medication Administered: ONDANSETRON [IVP] (ONDANSETRON HCL), Dose: 4 mg IVP over 2 minute(s), Site: #1 right AC. Medication Ordered: Ondansetron IV 4 mg (NOW). Start 15:42 10/07/2016 Philip Piper R.N., Stop 16:42 10/07/2016 Esme Jackson, Medication Administered: IV NS (SALINE), Dose: IV Fluids over 0.15 hour(s), Rate: 1000 mL/hr, Dispensed: 1000 mL bag, Site: #1 right AC. Medication Ordered: IV NS with Normal Saline 1 Liter: initial bolus 250 mL (1000 mL/hr), then 1000 mL/hr for X1 (NOW); Daniel. Start 17:17 10/07/2016 Philip Piper R.N., Stop 19:17 10/07/2016 Esme Jackson, Medication Administered: POTASSIUM CHLORIDE [IVPB] (POTASSIUM CHLORIDE), Dose: 20 meq IVPB over 2 hour(s), Rate: 25 mL/hr, Dispensed: 50 mL bag, Site: #1 right AC. Medication Ordered: Potassium Chloride IV 20 meq/100mL (HIGH ALERT MEDICATION, NOW). Given 17:18 10/07/2016 Philip Piper R.N. Medication Administered: POTASSIUM CHLORIDE [PO] (POTASSIUM CHLORIDE ER), Dose: 20 meq Capsules PO. Medication Ordered: Potassium Chloride PO 20 meq (NOW).
== END 2016-10-07 21:25 | disposition home or self-care (01) ==
LOC: ED SRH 15:17
DX: E83.51 Hypocalcemia (principal); E87.6 Hypokalemia; E83.42 Hypomagnesemia; R19.7 Diarrhea, unspecified; S06.0X9D Concussion with loss of consciousness of unspecified duration, subsequent encounter; R42 Dizziness and giddiness; Z72.0 Tobacco use
CPT/HCPCS: 90004; 90074; 90100; 90616; 91320; 92235; 92530; 92610; 92720; 95059

== ENCOUNTER 2016-10-09 11:12 | Outpatient (CLI) | payer OTHER | END 2016-10-09 23:00 | disposition home or self-care (01) | LOC: LAB SRH 11:12 | DX: E87.6 Hypokalemia (principal) | CPT/HCPCS: 90100 ==